=== PATIENT | female | born 1955 | race Two or more races ===

== ENCOUNTER 2025-06-18 08:11 | Inpatient (IN) | payer MEDICARE ==
[~2025-06-18] VITALS: Ht 172.7 cm; Wt 121.4 kg
[2025-06-18] VITALS (26 sets, daily range): BP systolic 102–146; BP diastolic 43–68; PULSE 50–73; RESP 12–23; TEMP 97.4–97.9; O2SAT 94–100
[2025-06-18] MEDS: SODIUM CHLORIDE 0.9% 1,000 ML IV ONE ×2 (08:56→08:57)
--- NOTE | 2025-06-18 09:01 | ED.PDOC ---
History of Present Illness HPI Comments 69-year-old female BIBA with prior medical history of pancreatic cancer, hypertension, high lipids and a chief complaint of generalized weakness for one month. EMS report on the family calling due from the patient having worsened symptoms of the generalized weakness. Patient reports on having had slipped f rom her bed with no pain this morning associated with no abdominal pain. When EMS arrived on scene the patient's blood pressure was 50 systolic. Patient notes on ambulating with the assistance. Denies any other symptoms at this time. Denies chills, fever, N/V/D, SOB, CP. No other associated symptoms, modifiers, recent injuries or sick contacts present at this time. Chief Complaint: Low Blood Pressure Time Seen by MD: 09:00 Reviewed Notes: Nurses Notes, Medications, Allergies Allergies: Coded Allergies: Penicillins (Verified Allergy, Unknown, 06/18/25) Sulfa Antibiotics (Verified Allergy, Unknown, 06/18/25) Information Source: Patient, Emergency Med Personnel Mode of Arrival: EMS Severity: Moderate Timing: Weeks Duration: Since onset Prehospital treatment: None Past Medical History PAST MEDICAL HISTORY: Cancer (Pancreatic), High Lipids, HTN Surgical History: Denies all surgeries WAREHOUSE SUPERVISOR 3RD SHIFT History: No Pertinent WAREHOUSE SUPERVISOR 3RD SHIFT History Family History Family History: Reviewed,noncontributory to illness, Unknown Social History Smoker: Non-Smoker Alcohol: Denies ETOH Use Drugs: Denies Drug Use Lives In: Home Constitutional: reports: weakness; denies: chills, diaphoresis, fatigue, fever, malaise, sweats, others EENTM: denies: blurred vision, double vision, ear bleeding, ear discharge, ear drainage, ear pain, ear ringing, eye pain, eye redness, hearing loss, mouth pain, mouth swelling, nasal discharge, nose bleeding, nose congestion, nose pain, photophobia, tearing, throat pain, throat swelling, voice changes, others Respiratory: denies: cough, hemoptysis, orthopnea, SOB at rest, shortness of breath, SOB with excertion, stridor, wheezing, others Cardiovascular: denies: chest pain, dizzy spells, diaphoresis, Dyspnea on exertion, edema, irregular heart beat, left arm pain, lightheadedness, palpitations, PND, syncope, others Gastrointestinal: reports: abdominal pain; denies: abdomen distended, blood streaked bowels, constipated, diarrhea, dysphagia, difficulty swallowing, hematemesis, melena, nausea, poor appetite, poor fluid intake, rectal bleeding, rectal pain, vomiting, others Genitourinary: denies: abnormal vagina bleeding, burning, dyspareunia, dysuria, flank pain, frequency, hematuria, incontinence, pain, , vagina discharge, urgency, others Neurological: denies: dizziness, fainting, headache, left sided numbness, left sided weakness, numbness, paresthesia, pre-existing deficit, right sided numbne ss, right sided weakness, seizure, speech problems, tingling, tremors, weakness, others Musculoskeletal: denies: back pain, gout, joint pain, joint swelling, muscle pain, muscle stiffness, neck pain, others Integumetry: denies: bruises, change in color, change in hair/nails, dryness, laceration, lesions, lumps, rash, wounds, others Allergic/Immunocompromised: denies: Difficulty Healing, Frequent Infections, Hives, Itching, others Hematologic/Lymphatic: denies: anemia, blood clots, easy bleeding, easy bruising, swollen glands, others Endocrine: denies: excessive hunger, excessive sweating, excessive thirst, excessive urination, flushing, intolerance to cold, intolerance to heat, unexplained weight gain, unexplained weight loss, others Psychiatric: denies: anxiety, bipolar disorder, depression, hopeless, panic disorder, schizophrenia, sleepless, suicidal, others All Other Systems: Reviewed and Negative Physical Exam General Appearance: Moderate Distress, Obese HEENT: Normal ENT Inspection, Pharynx Normal, TMs Normal Neck: Full Range of Motion, Non-Tender, Normal, Normal Inspection Respiratory: Chest Non-Tender, Lungs Clear, No Accessory Muscle Use, No Respiratory Distress, Normal Breath Sounds Cardiovascular: No Edema, No JVD, No Murmur, No Gallop, Normal Peripheral Pulses, Regular Rate/Rhythm Breast Exam: Deferred Gastrointestinal: No Organomegaly, Non Tender, No Pulsatile Mass, Normal Bowel Sounds, Soft Genitalia: Deferred Pelvic: Deferred Rectal: Deferred Extremities: No calf tenderness, Normal capillary refill, Non-tender, No pedal edema Musculoskeletal : Apperance: Normal Neurologic: Alert, sharepoint specialist II-XII nml as Tested, No Motor Deficits, Normal Affect, Normal Mood, No Sensory Deficits Cerebellar Function: NOT DONE Reflexes: NOT DONE Skin: Dry, Normal Color, Warm Peripheral Pulses: 3+ Radial (R), 3+ Radial (L) Lymphatic: No Adenopathy Was a procedure done? Was a procedure done?: No Differential Dx Considerations may include: Atrial fibrillation Electrolyte imbalance X-Ray, Labs, Meds, VS Vital Signs Date Time Temp Pulse Resp B/P (MAP) Pulse Ox O2 Delivery O2 Flow Rate FiO2 06/18/25 11:25 84/44 06/18/25 09:40 71 06/18/25 09:12 98.0 78 18 49/36 98 98.0 06/18/25 08:37 77 Lab Test 06/18/25 12:35 06/18/25 10:35 06/18/25 08:35 Range/Units Lactic Acid Level 1.1 1.9 3.2 *H 0.4-2.0 mmol/L White Blood Count 60.8 *H 4.4-10.8 10^3/uL Red Blood Count 1.90 L 4.0-5.20 10^6/uL Hemoglobin 5.6 *L 12.2-16.2 g/dL Hematocrit 17.8 L 36.0-46.0 % Mean Corpuscular Volume 93.8 80.0-100.0 fL Mean Corpuscular Hemoglobin 29.3 28.0-32.0 pg Mean Corpuscular Hemoglobin Concent 31.3 L 32.0-36.0 g/dL Red Cell Distribution Width 23.2 H 11.8-14.3 % Platelet Count 399 140-450 10^3/uL Mean Platelet Volume 8.9 6.9-10.8 fL Neutrophils (%) (Auto) 37.0-80.0 % Lymphocytes (%) (Auto) 10.0-50.0 % Monocytes (%) (Auto) 0.0-12.0 % Basophils (%) (Auto) 0.0-2.0 % Neutrophils # (Auto) 1.6-8.6 10 ^3/uL Lymphocytes # (Auto) 0.4-5.4 10 ^3/uL Monocytes # (Auto) 0-1.3 10 ^3/uL Differential Total Cells Counted 100.0 100 Neutrophils % (Manual) 80 37.0-80.0 Band Neutrophils % (Manual) 15 Lymphocytes % (Manual) 3 L 10.0-50.0 Monocytes % (Manual) 1 0-12 Eosinophils % (Manual) 0 0-7 Basophils % (Manual) 0 0.0-2.0 Metamyelocytes % (manual) 0 Myelocytes % (Manual) 1 Promyelocytes % (Manual) 0 Blast Cells % (Manual) 0 Reactive Lymphocytes 0 Platelet Estimate Adequate Clumped Platelets Few Anisocytosis (manual) Slight Prothrombin Time 14.1 H 9.3-11.8 sec Prothrombin Time INR 1.37 H 0.9-1.15 Activated Partial Thromboplast Time 34.0 24.5-34.5 SEC Sodium Level 136 136-145 mmol/L Potassium Level 4.7 3.5-5.1 mmol/L Chloride Level 103 98-107 mmol/L Carbon Dioxide Level 20 20-31 mmol/L Anion Gap 13 5-15 Blood Urea Nitrogen 20 9-23 mg/dL Creatinine 2.81 H 0.550-1.02 mg/dL Glomerular Filtration Rate Calc 18 >90 mL/min BUN/Creatinine Ratio 7.1 L 10.0-20.0 Serum Glucose 125 H 74-106 mg/dL Calcium Level 8.2 L 8.7-10.4 mg/dL Total Bilirubin 1.0 0.2-1.0 mg/dL Aspartate Amino Transferase (AST) 96 H 13-40 U/L Alanine Aminotransferase (ALT) 42 H 7-40 U/L Alkaline Phosphatase 391 H 46-116 U/L Total Protein 6.4 5.7-8.2 g/dL Albumin 3.2 3.2-4.8 g/dL Current Medications Medications (Trade) Dose Ordered Sig/Anni Route Start Time Stop Time Status Last Admin Sodium Chloride 1,000 ml @ 1,000 mls/hr Q1H ONCE IV 06/18/25 08:30 06/18/25 09:29 DC 06/18/25 08:56 Sodium Chloride 1,000 ml @ 150 mls/hr Q6H40M ONCE IV 06/18/25 08:30 06/18/25 15:09 06/18/25 08:57 Metronidazole 100 ml @ 100 mls/hr ONCE ONCE IV 06/18/25 09:45 06/18/25 10:44 DC 06/18/25 10:41 Norepinephrine Bitartrate 250 ml @ 3.75 mls/hr Q24H IV 06/18/25 11:00 06/18/25 11:25 Patient alert. Came in because of generalized weakness. Liver profile elevated. Lactic acid elevated. WBC elevated. She does have a history of pancreatic cancer. Establish intravenous access. Was given fluids. Was given cefepime. Was given Flagyl. Explained to the patient. Continue to monitor. Have to be careful in giving fluids. Possible fluid overload. Start Levophed. Time of 1ST Reevaluation: 09:30 Reevaluation 1ST: Unchanged Patient Education/Counseling: Diagnosis, Treatment, Prognosis Family Education/Counseling: No Family Present SEPSIS Sepsis Screen Physician Orders Urinalysis (06/18/25 08:21) Chest Portable (06/18/25 08:21) Accucheck (06/18/25 08:21) Blood Culture (06/18/25 08:21) Cefepime 1gm/50ml (Maxipime 1gm/50ml) (06/18/25 14:00) Notify Md If Map <65 Or Bp<90 (06/18/25 08:21) If Map<65 Start Vasopressor (06/18/25 08:21) Sepsis Reassesment After Fluid (06/18/25 09:21) Sodium Chloride 0.9% (06/18/25 08:30) Norepinephrine 8 Mg/250ml Kit (Levophed) (06/18/25 11:00) Type And Screen (06/18/25 12:26) Metronidazole 500mg/100ml (Flagyl 500mg/ (06/18/25 14:00) Cefepime 1gm/50ml (Maxipime 1gm/50ml) (06/19/25 10:00) Urine Bacterial Culture (06/18/25 12:38) Transfuse Blood Product (06/18/25 12:38) Packedcell-Noactive Bleeding (06/18/25 12:38) Complete Blood Count (06/18/25 19:00) Reticulocyte Count (06/18/25 12:38) Lactate Dehydrogenase (06/18/25 12:38) Vital Signs Date Time Temp Pulse Resp B/P (MAP) Pulse Ox O2 Delivery O2 Flow Rate FiO2 06/18/25 11:25 84/44 06/18/25 09:40 71 06/18/25 09:12 98.0 78 18 49/36 98 98.0 06/18/25 08:37 77 Laboratory Tests Test 06/18/25 08:35 06/18/25 10:35 06/18/25 12:35 Lactic Acid Level 3.2 mmol/L (0.4-2.0) *H 1.9 mmol/L (0.4-2.0) 1.1 mmol/L (0.4-2.0) White Blood Count 60.8 10^3/uL (4.4-10.8) *H Medications Medications Dose Ordered Sig/Anni Route Start Time Stop Time Status Last Admin Dose Admin Metronidazole 100 ml @ 100 mls/hr ONCE ONCE IV 06/18/25 09:45 06/18/25 10:44 DC 06/18/25 10:41 Norepinephrine Bitartrate 250 ml @ 3.75 mls/hr Q24H IV 06/18/25 11:00 06/18/25 11:25 Sodium Chloride 1,000 ml @ 150 mls/hr Q6H40M ONCE IV 06/18/25 08:30 06/18/25 15:09 06/18/25 08:57 Sodium Chloride 1,000 ml @ 1,000 mls/hr Q1H ONCE IV 06/18/25 08:30 06/18/25 09:29 DC 06/18/25 08:56 Departure 1 Departure Time of Disposition: 09:41 Impression: Primary Impression: Sepsis, unspecified organism Qualified Codes: A41.9 - Sepsis, unspecified organism Disposition: 09 ADMITTED INPATIENT Admit to: Med Surg Condition: Guarded Critical Care Note Critical Care Time?: Yes (90 min-critical care time only) Stability Stability form required: No Heart Score Heart Score: Heart Score Response (Comments) Value History Slightly Suspicious 0 EKG Normal 0 Age >65 2 Risk Factors >3 or Hx ASHD 2 Troponin Normal limit 0 Total 4 I personally scribed for KIRTI FUENTES MD ([email or web address]) on 06/18/25 at 09:01. Electronically submitted by Miguelangel Ramirez ([email or web address]). KIRTI FUENTES MD Jun 18, 2025 09:01
[2025-06-18 09:06] LABS: Hematocrit 17.8 % (36.0-46.0); Mean Corpuscular Hemoglobin 29.3 pg (28.0-32.0); Mean Corpuscular Volume 93.8 fL (80.0-100.0)
[2025-06-18 09:11] LABS: Hemoglobin 5.6 g/dL (12.2-16.2); INR 1.37 (0.9-1.15); Partial Thromboplastin Time 34.0 SEC (24.5-34.5); Prothrombin Time 14.1 sec (9.3-11.8)
[2025-06-18 09:15] LABS: Anion Gap 13 (5-15); BUN/Creatinine Ratio 7.1 (10.0-20.0); Bilirubin, Total 1.0 mg/dL (0.2-1.0); Blood Urea Nitrogen 20 mg/dL (9-23); Carbon Dioxide 20 mmol/L (20-31); Chloride 103 mmol/L (98-107); Potassium 4.7 mmol/L (3.5-5.1); Total Protein 6.4 g/dL (5.7-8.2)
--- NOTE | 2025-06-18 09:16 | DVH ---
CHEST RADIOGRAPH Indication: sob Technique: Single frontal view of the chest was obtained COMPARISON: None FINDINGS: Right-sided port-A-Cath with tip near the cavoatrial junction. Lungs and pleural spaces are clear. Cardiac silhouette and valentin are within normal limits. Bones and s oft tissues demonstrate no significant abnormality. IMPRESSION: No acute disease.
[2025-06-18 09:32] LABS: Alanine Aminotransferase 42 U/L (7-40); Albumin 3.2 g/dL (3.2-4.8); Alkaline Phosphatase 391 U/L (46-116); Calcium 8.2 mg/dL (8.7-10.4); Glucose 125 mg/dL (74-106); Sodium 136 mmol/L (136-145)
[2025-06-18 09:35] LABS: Lactic Acid w/Reflex 3.2 mmol/L (0.4-2.0)
--- NOTE | 2025-06-18 09:52 | ECG ---
[facility] Test Date: 2025-06-18 Test Time: 09:40:52 Pat Name: GAIL ABAD Department: [facility] ED Patient ID: [id number] Room: 0235T Gender: F Quality Assistant: [email or web address] : 1955 Requested By: KIRTI FUENTES Order Number: [id number] Reading MD: Jesse Leonard Measurements Intervals [place] Rate: 71 P: 46 LA: 173 QRS: 31 QRSD: 93 T: 38 QT: 478 QTc: 520 Interpretive Statements Sinus rhythm Low voltage, precordial leads Prolonged QT interval Electronically Signed On 06-24-2025 13:23:35 PST by Jesse Leonard Please click the below link to view image of tracing.
--- NOTE | 2025-06-18 09:52 | ECG ---
[facility] Test Date: 2025-06-18 Test Time: 08:37:32 Pat Name: GAIL ABAD Department: [facility] ED Patient ID: [id number] Room: 0235T Gender: F Manufacturing Engineer Assembly: ISSA : 1955 Requested By: KIRTI FUENTES Order Number: [id number] Reading MD: Jesse Leonard Measurements Intervals [place] Rate: 77 P: 41 [place]: 166 QRS: 18 QRSD: 92 T: 44 QT: 439 QTc: 497 Interpretive Statements Sinus rhythm Low voltage, precordial leads Baseline artifact in leads II and III Borderline prolonged QT interval Electronically Signed On 06-24-2025 13:19:54 PST by Jesse Leonard Please click the below link to view image of tracing.
[2025-06-18 10:34] LABS: Anisocytosis Slight; Total Cells Counted 100.0 (100)
[2025-06-18] MEDS: NOREPINEPHRINE 8 MG/250ML KIT 250 ML IV SCH (11:25)
[2025-06-18] MEDS ORDERED: ACETAMINOPHEN 325 MG TAB PO PRN (13:00)
[2025-06-18] MEDS ORDERED: NITROGLYCERIN 0.4 MG SL TAB SL PRN (13:00)
[2025-06-18] MEDS ORDERED: ONDANSETRON HCL 4 MG/2 ML VIAL IV PRN (13:00)
[2025-06-18] MEDS ORDERED: DEXTROSE (50%) 50ML SYRG IV PRN (13:15)
--- NOTE | 2025-06-18 13:15 | DVHHP2 ---
History of Present Illness Reason for Visit: Weakness History of Present Illness Hanny Pan is a 69-year-old female with past medical history of pancreatic and liver cancer Mets to the lung on chemo, bile duct cancer status post Whipple, hyperlipidemia, hypertension, , and ERCP who presents to the ED with weakness for over a month. Patient reports that she was trying to get up to go to the bathroom and fell however did not hit her head or lose consciousness. A family member was able to catch her head. Patient's daughter reports that she uses a front wheel walker or a cane. Patient's daughter catarino at the bedside and reports that her mom is from [place], initially had her Port-A-Cath in the right chest placed in [place] and had established care was on chemo in [place]. Reports that she recently moved here a month and a half ago, now has seen an oncologist at [facility] in [place] and plans are to have chemo start mid June. Reports that they want to delayed due to her weakness. Daughter reports that the last time she had chemo was on the . Patient denies any active bleeding, hematemesis, or hematochezia. Patient also reports that she has been compliant with her medications. Patient denies any recent recent sick contacts, recent ingestion of spoiled food, recent trauma or injury, chest pain, shortness of breath, fever, chills, lightheadedness, dizziness, abdominal pain, nausea, vomiting, diarrhea, or urinary symptoms. Patient reports that she does not want to be intubated but does want other measures for resuscitation, includes medications, vasopressors, CPR, and BiPAP. Cardiovascular: HTN, hyperipidemia Past Medical History Pancreatic cancer Liver cancer Bile duct cancer Mets to the lung Past Surgical History: , Other (Whipple and ERCP) Family History: Other (Mom with breast cancer. Dad with DC, CABG, and diabetes. Grandma with breast cancer.) Smoke: No ALCOHOL: none Drugs: None Lives: with Family Domestic Violence: Neg Review of Systems Constitutional: Yes: Weakness Allergies: Coded Allergies: Penicillins (Verified Allergy, Unknown, 06/18/25) Sulfa Antibiotics (Verified Allergy, Unknown, 06/18/25) Medications Current Medications Medications Dose Ordered Sig/Anni Route Start Time Stop Time Status Last Admin Dose Admin Cefepime HCl 50 ml @ 12.5 mls/hr Q24H IV 06/18/25 14:00 Norepinephrine Bitartrate 250 ml @ 3.75 mls/hr Q24H IV 06/18/25 11:00 06/18/25 11:25 3.75 MLS/HR Exam Vital Signs Vital Signs Date Time Temp Pulse Resp B/P (MAP) Pulse Ox O2 Delivery O2 Flow Rate FiO2 06/18/25 11:25 84/44 06/18/25 09:40 71 06/18/25 09:12 98.0 18 98 98.0 General Appearance: Alert, Oriented X3, Cooperative, No acute distress HEENT: Atraumatic, PERRLA, EOMI, Mucous membr. moist/pink Respiratory: Clear to auscultation Cardiovascular: Regular rate, Normal S1, Normal S2, No murmurs Abdominal: Normal bowel sounds, Soft Neuro: Normal speech, Normal tone, Sensation intact Psych/Mental Status: Mental status NL, Mood NL Labs/Xrays Labs Test 06/18/25 10:35 06/18/25 08:35 Range/Units Lactic Acid Level 1.9 0.4-2.0 mmol/L White Blood Count 60.8 *H 4.4-10.8 10^3/uL Red Blood Count 1.90 L 4.0-5.20 10^6/uL Hemoglobin 5.6 *L 12.2-16.2 g/dL Hematocrit 17.8 L 36.0-46.0 % Mean Corpuscular Volume 93.8 80.0-100.0 fL Mean Corpuscular Hemoglobin 29.3 28.0-32.0 pg Mean Corpuscular Hemoglobin Concent 31.3 L 32.0-36.0 g/dL Red Cell Distribution Width 23.2 H 11.8-14.3 % Platelet Count 399 140-450 10^3/uL Mean Platelet Volume 8.9 6.9-10.8 fL Neutrophils (%) (Auto) 37.0-80.0 % Lymphocytes (%) (Auto) 10.0-50.0 % Monocytes (%) (Auto) 0.0-12.0 % Basophils (%) (Auto) 0.0-2.0 % Neutrophils # (Auto) 1.6-8.6 10 ^3/uL Lymphocytes # (Auto) 0.4-5.4 10 ^3/uL Monocytes # (Auto) 0-1.3 10 ^3/uL Differential Total Cells Counted 100.0 100 Neutrophils % (Manual) 80 37.0-80.0 Band Neutrophils % (Manual) 15 Lymphocytes % (Manual) 3 L 10.0-50.0 Monocytes % (Manual) 1 0-12 Eosinophils % (Manual) 0 0-7 Basophils % (Manual) 0 0.0-2.0 Metamyelocytes % (manual) 0 Myelocytes % (Manual) 1 Promyelocytes % (Manual) 0 Blast Cells % (Manual) 0 Reactive Lymphocytes 0 Platelet Estimate Adequate Clumped Platelets Few Anisocytosis (manual) Slight Prothrombin Time 14.1 H 9.3-11.8 sec Prothrombin Time INR 1.37 H 0.9-1.15 Activated Partial Thromboplast Time 34.0 24.5-34.5 SEC Sodium Level 136 136-145 mmol/L Potassium Level 4.7 3.5-5.1 mmol/L Chloride Level 103 98-107 mmol/L Carbon Dioxide Level 20 20-31 mmol/L Anion Gap 13 5-15 Blood Urea Nitrogen 20 9-23 mg/dL Creatinine 2.81 H 0.550-1.02 mg/dL Glomerular Filtration Rate Calc 18 >90 mL/min BUN/Creatinine Ratio 7.1 L 10.0-20.0 Serum Glucose 125 H 74-106 mg/dL Calcium Level 8.2 L 8.7-10.4 mg/dL Total Bilirubin 1.0 0.2-1.0 mg/dL Aspartate Amino Transferase (AST) 96 H 13-40 U/L Alanine Aminotransferase (ALT) 42 H 7-40 U/L Alkaline Phosphatase 391 H 46-116 U/L Total Protein 6.4 5.7-8.2 g/dL Albumin 3.2 3.2-4.8 g/dL CHEST RADIOGRAPH Indication: sob Technique: Single frontal view of the chest was obtained COMPARISON: None FINDINGS: Right-sided port-A-Cath with tip near the cavoatrial junction. Lungs and pleural spaces are clear. Cardiac silhouette and valentin are within normal limits. Bones and soft tissues demonstrate no significant abnormality. IMPRESSION: No acute disease. SEPSIS Sepsis Screen Date sepsis recognized/suspect: Jun 18, 2025 Time Sepsis recognized/suspect: 0811 Recent Procedure: No On Antibiotic Therapy: No Respiratory Rate >20: No Heart Rate >90: No Temp<36 C (96.8 F) or >38.3 C: No SBP <90 or MAP <65 mmHG: Yes New Acute Mental Status Change: No Is the patient on CPAP, BIPAP,: No Physician Orders Urinalysis (06/18/25 08:21) Chest Portable (06/18/25 08:21) Accucheck (06/18/25 08:21) Blood Culture (06/18/25 08:21) Lactic Acid W/ Reflex Order (06/18/25 12:00) Cefepime 1gm/50ml (Maxipime 1gm/50ml) (06/18/25 14:00) Notify Md If Map <65 Or Bp<90 (06/18/25 08:21) If Map<65 Start Vasopressor (06/18/25 08:21) Sepsis Reassesment After Fluid (06/18/25 09:21) Sodium Chloride 0.9% (06/18/25 08:30) Norepinephrine 8 Mg/250ml Kit (Levophed) (06/18/25 11:00) Type And Screen (06/18/25 12:26) Vital Signs Date Time Temp Pulse Resp B/P (MAP) Pulse Ox O2 Delivery O2 Flow Rate FiO2 06/18/25 11:25 84/44 06/18/25 09:40 71 06/18/25 09:12 98.0 78 18 49/36 98 98.0 06/18/25 08:37 77 Laboratory Tests Test 06/18/25 08:35 06/18/25 10:35 Lactic Acid Level 3.2 mmol/L (0.4-2.0) *H 1.9 mmol/L (0.4-2.0) White Blood Count 60.8 10^3/uL (4.4-10.8) *H Medications Medications Dose Ordered Sig/Anni Route Start Time Stop Time Status Last Admin Dose Admin Metronidazole 100 ml @ 100 mls/hr ONCE ONCE IV 06/18/25 09:45 06/18/25 10:44 DC 06/18/25 10:41 100 MLS/HR Norepinephrine Bitartrate 250 ml @ 3.75 mls/hr Q24H IV 06/18/25 11:00 06/18/25 11:25 3.75 MLS/HR Sodium Chloride 1,000 ml @ 150 mls/hr Q6H40M ONCE IV 06/18/25 08:30 06/18/25 15:09 06/18/25 08:57 150 MLS/HR Sodium Chloride 1,000 ml @ 1,000 mls/hr Q1H ONCE IV 06/18/25 08:30 06/18/25 09:29 DC 06/18/25 08:56 1,000 MLS/HR Assessment/Plan Assessment/Plan Assessment/plan Admit to ICU Generalized weakness Status post fall Severe anemia Leukocytosis Lactic acidosis likely due to sepsis Hypovolemic versus septic shock -admit to ICU -vasopressors to keep maps greater than 65 -lactic -IV antibiotics-Flagyl + cefepime -EKG -manual differential -NS given in ED -type and screen -transfuse PRBCs for hemoglobin less than 7.0 -UA -urine culture -blood cultures History of pancreatic and liver cancer Mets to the lung-on chemo, per daughter reports History of History of Whipple History of ERCP History of diabetes History of hypertension -follow up with outpatient PCP and Oncologist -Hemoglobin A1c -ISS and Accu-Cheks Transaminitis -likely due to liver cancer -monitor KYLER -Nephro consult -IV fluids Obesity -counseled patient on lifestyle modifications, diet, and exercise Modified code DNI Diet Home medications need to be recon by nurse, patient's daughter catarino reports th at she has a list DVT and PUD prophylaxis Discussed plan of care with patient, patient's daughter, and nurse [id number] Advanced care planning discussed [id number] Preventive counseling healthy eating habits, physical activity, and regular checkups Plan discussed with: Patient, Daughter My Orders Orders - GEO NELSON Procedure Category Date Status Time Type And Screen BBK 06/18/25 Logged 12:26 Date of Service: Jun 18, 2025 Billing Provider: GEO NELSON Common Visit Codes: 01614-LFQHMVI INP/OBS CARE (HIGH) Secondary Visit Codes: 68366-PMPIGVOQHS COUNSELING IND, [id number]-[id number] CARE PLAN 30 MINUTES GEO NELSON Jun 18, 2025 13:15
[2025-06-18] MEDS: SODIUM CHLORIDE 0.9% 1,000 ML IV SCH (14:17)
[2025-06-18] MEDS: CEFEPIME 1GM/50ML 50 ML IV SCH (14:23)
[2025-06-18 15:58] LABS: Urine Protein, UAD 1+ (Negative)
[2025-06-18] MEDS: ACCU-CHEK COMFORT CURVE STRIP VI SCH (17:00)
[2025-06-18] MEDS: InsuLIN REG 1unit/0.01ml Soln (100units/ml) SC SCH (17:00)
[2025-06-18] MEDS: HYDROcodone-ACET 5/325MG TAB PO PRN (23:03)
[2025-06-19] VITALS (53 sets, daily range): BP systolic 92–150; BP diastolic 37–102; PULSE 48–124; RESP 12–22; TEMP 97.6–98.2; O2SAT 95–100
[2025-06-19 02:21] LABS: Hematocrit 33.1 % (36.0-46.0); Hemoglobin 10.5 g/dL (12.2-16.2); Mean Corpuscular Hemoglobin 29.2 pg (28.0-32.0); Mean Corpuscular Volume 91.8 fL (80.0-100.0)
[2025-06-19 04:02] LABS: Anisocytosis Slight; Total Cells Counted 100.0 (100)
[2025-06-19] MEDS: CEFEPIME 1GM/50ML 50 ML IV SCH (09:44)
[2025-06-19] MEDS: MEROPENEM 500MG IVPB 50 ML IV SCH (11:00)
[2025-06-19] MEDS: SODIUM CHLORIDE 0.9% 1,000 ML IV SCH ×2 (11:00→16:14)
[2025-06-19] MEDS ORDERED: DOCUSATE SOD 100 MG CAP PO PRN (11:00)
[2025-06-19] MEDS ORDERED: PANT1INJ3 PO (11:04)
[2025-06-19] MEDS ORDERED: LOSA-534 PO (11:05)
[2025-06-19] MEDS ORDERED: LOSA-533 PO (11:05)
[2025-06-19] MEDS ORDERED: ROPI0.5T26 PO (11:09)
[2025-06-19] MEDS ORDERED: CHOL200031 PO (11:09)
[2025-06-19] MEDS ORDERED: MAGN250T3 PO (11:09)
[2025-06-19] MEDS ORDERED: GABA300T4 PO (11:15)
[2025-06-19] MEDS ORDERED: ATOR40TA52 PO (11:15)
[2025-06-19] MEDS ORDERED: PROP60CA34 PO (11:15)
[2025-06-19 13:07] LABS: Hematocrit 30.3 % (36.0-46.0); Hemoglobin 9.4 g/dL (12.2-16.2); Mean Corpuscular Hemoglobin 29.1 pg (28.0-32.0); Mean Corpuscular Volume 94.2 fL (80.0-100.0); Nucleated Red Blood Cells % 0.0 %
--- NOTE | 2025-06-19 13:16 | DVH ---
Indication: sepsis, pancreatic ca Technique: CT axial images of the abdomen and pelvis are obtained without contrast. Coronal and sagit sarah reformats were obtained. Radiation Dose Information: CTDI volume is 23.02 mGy. Dose-length product is 1324.78 mGy*cm Comparison: None FINDINGS: There is limited interpretation of the abdomen and pelvis without administration of intravenous contr ast. Lung bases demonstrate atelectasis. Tiny bilateral pleural effusions. Adrenal glands unremarkable. Spleen measures 13 cm AP. Postsurgical changes in the pancreatic head/ uncinate region with possible partial pancreatectomy. Right hepatic lobe hypodense lesion measuring 6.2 cm., 3.5 cm, 2.1 cm. Pneumobilia in the left hepat ic lobe. CBD stent. Right kidney demonstrates no significant hydronephrosis. The left kidney demonstrates [id number] left hydroureteronephrosis. No obstructing calculus maria l ntified. Postsurgical changes stomach. Stomach is nondistended. Gastrojejunostomy. Small bowel loops are nor mal in caliber. Moderate volume stool throughout the colon. Normal appendix. Abdominal aortic atherosclerotic disease. Bladder decompressed by Bennett catheter. Calcified uterine leiomyomas measuring up to 5.8 cm. No pelvic free fluid. No inguinal lymphadenopathy. Moderate thoracolumbar degenerative disc disease. IMPRESSION: Limited evaluation without contrast. Right hepatic lobe hypodense lesions measuring 6.2, 3.5 and 2.1 cm are possibly communicating with on e another. Differential considerations would include intrahepatic abscesses, metastases/necrotic soco plasm. Recommend multiphasic MRI abdomen with and without contrast. This may represent the source of the patient's sepsis. Findings suggestive of procedure. [id number] left hydroureteronephrosis. No obstructing calculus identified. Recommend urology co nsultation for further evaluation. Calcified uterine leiomyomas. Tiny bilateral pleural effusions. Other findings as described.
[2025-06-19 13:25] LABS: Alanine Aminotransferase 35 U/L (7-40); Anion Gap 10 (5-15); BUN/Creatinine Ratio 12.8 (10.0-20.0); Chloride 105 mmol/L (98-107); Potassium 4.1 mmol/L (3.5-5.1); Total Protein 5.9 g/dL (5.7-8.2)
[2025-06-19 13:26] LABS: Albumin 2.9 g/dL (3.2-4.8); Alkaline Phosphatase 310 U/L (46-116); Bilirubin, Total 0.4 mg/dL (0.2-1.0); Blood Urea Nitrogen 30 mg/dL (9-23); Calcium 8.0 mg/dL (8.7-10.4); Carbon Dioxide 20 mmol/L (20-31); Glucose 160 mg/dL (74-106); Sodium 135 mmol/L (136-145)
[2025-06-19] MEDS ORDERED: GABAPENTIN 300 MG CAP PO SCH (14:00)
[2025-06-19] MEDS ORDERED: SENNA 8.6 MG TAB PO PRN (15:00)
[2025-06-19] MEDS: PATIENTS OWN MEDICATION (Gabapentin (Once-Daily) (Gabapentin) 300 MG) PO SCH (16:14)
[2025-06-19] MEDS: diphenhydrAMINE HCL 50 MG/1 ML VL IV ONE (16:41)
--- NOTE | 2025-06-19 20:11 | DVH ---
INDICATION: look for ureteral jetting TECHNIQUE: Multiple real-time grayscale transabdominal sonographic images along with color and duplex Doppler of the uterus and ovaries were obtained. COMPARISON: None FINDINGS: Bennett catheter poorly visualized. Bennett catheter visualized on CT abdomen and pelvis done same day. Bilateral ureteral jets not visualized. IMPRESSION: 1. Bennett catheter poorly visualized 2. Ureteral jets not visualized.
[2025-06-19] MEDS: CLINDAMYCIN 300MG IV 50 ML IV SCH (21:17)
[2025-06-19] MEDS: APIXABAN 5 MG TAB PO SCH (21:18)
[2025-06-19] MEDS: GABAPENTIN 300 MG CAP PO SCH (21:18)
[2025-06-20] VITALS (8 sets, daily range): BP systolic 90–139; BP diastolic 54–81; PULSE 73–92; RESP 18–20; TEMP 97.1–98.8; O2SAT 96–99
[2025-06-20 04:32] LABS: Hematocrit 30.4 % (36.0-46.0); Hemoglobin 9.9 g/dL (12.2-16.2); Mean Corpuscular Hemoglobin 29.0 pg (28.0-32.0); Mean Corpuscular Volume 88.7 fL (80.0-100.0); Nucleated Red Blood Cells % 0.0 %
[2025-06-20 05:00] LABS: Alanine Aminotransferase 30 U/L (7-40); Anion Gap 9 (5-15); BUN/Creatinine Ratio 17.0 (10.0-20.0); Carbon Dioxide 21 mmol/L (20-31); Chloride 106 mmol/L (98-107); Potassium 4.2 mmol/L (3.5-5.1); Total Protein 5.9 g/dL (5.7-8.2)
[2025-06-20 05:01] LABS: Bilirubin, Total 0.5 mg/dL (0.2-1.0)
[2025-06-20 05:28] LABS: Albumin 2.9 g/dL (3.2-4.8); Alkaline Phosphatase 297 U/L (46-116); Blood Urea Nitrogen 29 mg/dL (9-23); Calcium 8.1 mg/dL (8.7-10.4); Glucose 120 mg/dL (74-106); Sodium 136 mmol/L (136-145)
--- NOTE | 2025-06-20 11:11 | DVHPN2 ---
Subjective Patient continues to report having generalized weakness Reviewed: Care Plan, H&P, Labs, Medications Changes from previous H/P or p: No Changes General: Per HPI Objective Vitals Vital Signs Date Time Temp Pulse Resp B/P (MAP) Pulse Ox O2 Delivery O2 Flow Rate FiO2 06/19/25 08:00 62 22 98 Room Air* 0 21 06/19/25 07:15 138/67 (90) 06/19/25 00:15 97.8 97.8 Intake/Output Intake and Output 06/19/25 07:00 Intake Total 2763.75 ml Output Total 100 ml Balance 2663.75 ml IV Total 2463.75 ml Other 300 ml Output Urine Total 100 ml # Bowel Movements 1 General Appearance: Alert, Oriented X3, Cooperative, No acute distress HEENT: Atraumatic, PERRLA Lungs: Clear to auscultation, Normal air movement Cardiovascular: Normal S1, Normal S2 Abdomen: Normal bowel sounds, Soft, No tenderness, No hepatospenomegaly Genitourinary: No Apparent Abnormalities Musculoskeletal: Normal sensory function, Normal motor function Skin: Dry, Intact Psych/Mental Status: Mental status NL, Mood NL Medications Current Medications Medications Dose Ordered Sig/Anni Route Start Time Stop Time Status Last Admin Dose Admin Norepinephrine Bitartrate 250 ml @ 3.75 mls/hr Q24H IV 06/18/25 11:00 06/18/25 11:25 3.75 MLS/HR Metronidazole 100 ml @ 100 mls/hr Q8HR IV 06/18/25 14:00 06/19/25 06:33 100 MLS/HR Nitroglycerin 0.4 mg Q5MINP PRN SL 06/18/25 13:00 Morphine Sulfate 2 mg Q30M PRN IV 06/18/25 13:00 Diagnostic Test (Pha) 1 strip ACHS 06/18/25 17:00 06/19/25 11:30 1 STRIP Insulin Human Regular ACHS SC 06/18/25 17:00 06/19/25 06:35 2 UNITS Dextrose 50 ml UD PRN IV 06/18/25 13:15 Meropenem 50 ml @ 17 mls/hr Q12HR IV 06/19/25 11:00 06/19/25 11:00 17 MLS/HR Oxycodone HCl 5 mg Q6HP PRN PO 06/19/25 11:00 06/19/25 12:35 5 MG Hydromorphone HCl 0.25 mg Q4HPRN PRN IV 06/19/25 11:00 Acetaminophen 500 mg Q8HP PRN PO 06/19/25 11:00 Ondansetron HCl 4 mg Q6HP PRN IV 06/19/25 11:00 Docusate Sodium 100 mg BID PRN PO 06/19/25 11:00 Sodium Chloride 1,000 ml @ 75 mls/hr [id number] IV 06/19/25 11:00 06/19/25 11:00 75 MLS/HR Apixaban 5 mg BID PO 06/19/25 22:00 UNV Patient Own Medication 300 mg TID PO 06/19/25 14:00 UNV Gabapentin 300 mg TID PO 06/19/25 14:00 UNV Pantoprazole Sodium 40 mg DAILY IV 06/20/25 10:00 UNV Laboratory Results Laboratory Tests 06/18/25 08:35 06/19/25 02:00 Urinalysis Test 06/18/25 15:43 Urine Color Yellow (Yellow) Urine Clarity Turbid (Clear) H Urine pH 5.5 (5.0-9.0) Urine Specific [place] 1.015 (1.001-1.035) Urine Protein 1+ (Negative) H Urine Ketones Negative (Negative) Urine Blood Negative /uL (Negative) Urine Nitrite Negative (Negative) Urine Bilirubin Negative (Negative) Urine Urobilinogen 2 mg/dL (Negative) H Urine Leukocyte Esterase Negative /uL (Negative) Urine RBC 5 /hpf (0 - 4) Urine Microscopic WBC 17 /HPF (0-5) H Urine Squamous Epithelial Cells Few /hpf (<5) Urine Bacteria None seen /hpf (None Seen) Urine Hyaline Casts Mod /lpf (0 - 2) Urine Mucus Few (None Seen) Urine Glucose Normal mg/dL (Normal) Microbiology Microbiology Date/Time Source Procedure Growth Status 06/18/25 15:43 Voided Urine Urine Culture - Preliminary Resulted 06/18/25 08:35 Blood Blood Culture - Preliminary NO GROWTH AFTER 24 HOURS OF INCUBATION. Resulted Labs and/or images reviewed: Labs reviewed by me, Image(s) reviewed by me Assessment/Plan Assessment/Plan Impression: -sepsis -severe anemia, rule out GI bleed -pancreatic cancer, status post Whipple procedure from one year ago -septic shock -acute kidney injury, vasomotor nephropathy -obesity -primary hypertension -history of DVT -peripheral neuropathy Plan: -broaden antibiotic therapy to include Meropenem with Flagyl -CT scan of the abdomen and pelvis -IV hydration -PPI -restart Eliquis -maya cultures -downgrade to telemetry status -code status: DNI Total time spent with patient discussing and formulating plan of care: 35 minutes. Total time spent with patient and family regarding advance care plannin minutes. This medical document was created using an electronic medical record system with [employer] dictation system. Although this document has been carefully reviewed, there may still be some phonetic and typographical errors. These areas are purely typographical due to imperfections of the software programs, and do not reflect any compromise in the patient's medical care. Plan discussed with: Patient, Daughter, Other (RN) My Orders Orders - ALTHEA KINGSTON HAND GRINDER Procedure Category Date Status Time Meropenem 500mg Ivpb PHA 06/19/25 In Process (Merrem 500mg/50ml 11:00 Ct Ab Pel Wo Con-No CT 06/19/25 Taken Oral Or Iv 10:49 Carbohydrate Antigen LAB 06/19/25 Logged 19-9 Complete Blood Count LAB 06/19/25 Logged 10:49 Comprehensive LAB 06/19/25 Logged Metabolic Panel 10:49 Comprehensive LAB 06/20/25 Verified Metabolic Panel 05:00 Comprehensive LAB 06/21/25 Verified Metabolic Panel 05:00 Comprehensive LAB 06/22/25 Verified Metabolic Panel 05:00 Oxycodone Immediate PHA 06/19/25 In Process Rel Tablet 11:00 Hydromorphone PHA 06/19/25 In Process Injection (Dilaudid 11:00 Acetaminophen Tab Or PHA 06/19/25 In Process Cap (Tylenol Tablet 11:00 Ondansetron Hcl PHA 06/19/25 In Process (Zofran) 11:00 Docusate Sodium PHA 06/19/25 In Process Capsule (Colace 11:00 B-Type Natriuretic LAB 06/19/25 Logged Peptide 10:49 Sodium Chloride 0.9% PHA 06/19/25 In Process 11:00 Apixaban (Eliquis) PHA 06/19/25 Transmitted 22:00 (Nf) Gabapentin PHA 06/19/25 Transmitted (Once-Daily) 14:00 Gabapentin Capsule PHA 06/19/25 Transmitted (Neurontin Capsule) 14:00 Pantoprazole PHA 06/20/25 Transmitted (Protonix) 10:00 Stool Occult Blood LAB 06/19/25 Transmitted 12:35 Complete Blood Count LAB 06/20/25 Verified 04:00 Date of Service: Jun 19, 2025 Billing Provider: ALTHEA KINGSTON NP Common Visit Codes: [id number] INP/OBS CARE(HIGH) Secondary Visit Codes: [id number] CARE PLAN 30 MINUTES ATLHEA KINGSTON NP Jun 19, 2025 12:48
--- NOTE | 2025-06-20 11:13 | DVHINCON2 ---
Date of service: Jun 19, 2025 Referring Physician Destiny Mena, nurse practitioner Reason for Consultation Acute kidney injury History of Present Illness Patient is a 69-year-old female who [place] to live with her daughter [place] in the [place] [facility], with past medical history significant for pancreatic cancer diagnosed March 2024 want to with living in [place] status post chemotherapy and Whipple procedure, High Lipids, and HTN is admitted for generalized weakness for one month. On admission patient found to have elevated creatinine nephrology is consulted for acute kidney injury Past Medical History PAST MEDICAL HISTORY: Pancreatic cancer, High Lipids, HTN Past Surgical History Whipple procedure done in [place] Allergies: Coded Allergies: Penicillins (Verified Allergy, Unknown, 06/18/25) Sulfa Antibiotics (Verified Allergy, Unknown, 06/18/25) Home Meds Reported Medications Atorvastatin Calcium (ATORVASTATIN CALCIUM) 40 Mg Tab, 1 TAB PO DAILY, #30 TAB 5 Refills 06/19/25 Gabapentin (Once-Daily) (Gabapentin) 300 Mg Tab, 300 MG PO TID, TAB 06/19/25 Propranolol Hcl (Inderal La) 60 Mg Cap, 30 MG PO BID, CAP 06/19/25 Ropinirole Hydrochloride (Ropinirole Hcl) 0.5 Mg Tab, 0.5 MG PO DAILY, TAB 06/19/25 Cholecalciferol (D3) 2,000 Unit Cap, 2000 UNIT PO, CAP 06/19/25 Magnesium (Magnesium 250 mg) 1 Tab Tab, 1 TAB PO, TAB 06/19/25 Losartan Potassium (Losartan Potassium) 25 Mg Tab, 25 MG PO DAILY for 30 Days, MG 06/19/25 Losartan Potassium (Losartan Potassium) 50 Mg Tab, 50 MG PO DAILY for 30 Days, MG 06/19/25 Pantoprazole Sodium (PANTOPRAZOLE SODIUM) 40 Mg Inj, 40 MG PO DAILY, INJ 06/19/25 Current Medications Current Medications Medications (Trade) Dose Ordered Sig/Anni Route PRN Reason Start Time Stop Time Status Last Admin Cefepime HCl 50 ml @ 12.5 mls/hr DAILY IV 06/19/25 10:00 06/19/25 10:55 DC 06/19/25 09:44 Diagnostic Test (Pha) (Accu-Chek Comfort Curve T) 1 strip ACHS 06/18/25 17:00 06/19/25 11:30 Insulin Human Regular (InsuLIN R) ACHS SC 06/18/25 17:00 06/19/25 06:35 Meropenem 50 ml @ 17 mls/hr Q12HR IV 06/19/25 11:00 06/19/25 11:00 Oxycodone HCl 5 mg Q6HP PRN PO MODERATE PAIN (4-6 PAIN SCALE) 06/19/25 11:00 06/19/25 12:35 Hydromorphone HCl (Dilaudid Injection) 0.25 mg Q4HPRN PRN IV SEVERE PAIN (7-10 PAIN SCALE) 06/19/25 11:00 Acetaminophen (Tylenol Tablet Or Capsule) 500 mg Q8HP PRN PO PAIN SCALE 1-3 OR TEMP>100.4 06/19/25 11:00 Ondansetron HCl (Zofran) 4 mg Q6HP PRN IV NAUSEA / VOMITING 06/19/25 11:00 Docusate Sodium (Colace Capsule) 100 mg BID PRN PO FOR CONSTIPATION 06/19/25 11:00 Sodium Chloride 1,000 ml @ 75 mls/hr [id number] IV 06/19/25 11:00 06/19/25 11:00 Apixaban (Eliquis) 5 mg BID PO 06/19/25 22:00 UNV Patient Own Medication 300 mg TID PO 06/19/25 14:00 UNV Gabapentin (Neurontin Capsule) 300 mg TID PO 06/19/25 14:00 UNV Pantoprazole Sodium (Protonix) 40 mg DAILY IV 06/20/25 10:00 UNV Review of Systems All 12 item review of systems reviewed with the patient nonsignificant except what is mentioned in the history of present illness H&P Exam Vital Signs/I&O Vital Sign Date Time Temp Pulse Resp B/P (MAP) Pulse Ox O2 Delivery O2 Flow Rate FiO2 06/19/25 12:30 67 113/37 (62) 98 06/19/25 12:00 16 06/19/25 11:30 Room Air* 0 21 06/19/25 00:15 97.8 97.8 Intake and Output 06/18/25 06/19/25 19:00 07:00 Intake Total 1553.75 ml 1270.00 ml Output Total 100 ml Balance 1553.75 ml 1170.00 ml IV Total 1553.75 ml 970.00 ml Other 300 ml Output Urine Total 100 ml # Bowel Movements 1 Physical Exam Obese female lying comfortably in bed Lungs clear to auscultation bilaterally Cardiac exam regular rate and rhythm Abdomen obese nontender was normal Extremity 1+ edema Neuro nonfocal Labs/Diagnostic Data Labs/Diagnostic Data Laboratory Tests Test 06/19/25 14:19 06/19/25 12:53 06/19/25 12:34 06/19/25 02:00 Range/Units White Blood Count 35.0 #*H 47.8 *H 4.4-10.8 10^3/uL Red Blood Count 3.21 L 3.60 L 4.0-5.20 10^6/uL Hemoglobin 9.4 L 10.5 #L 12.2-16.2 g/dL Hematocrit 30.3 L 33.1 #L 36.0-46.0 % Mean Corpuscular Volume 94.2 91.8 80.0-100.0 fL Mean Corpuscular Hemoglobin 29.1 29.2 28.0-32.0 pg Mean Corpuscular Hemoglobin Concent 30.9 L 31.8 L 32.0-36.0 g/dL Red Cell Distribution Width 20.9 H 20.6 H 11.8-14.3 % Platelet Count 339 380 140-450 10^3/uL Mean Platelet Volume 8.5 8.5 6.9-10.8 fL Neutrophils (%) (Auto) 91.0 H 37.0-80.0 % Lymphocytes (%) (Auto) 5.5 L 10.0-50.0 % Monocytes (%) (Auto) 3.3 0.0-12.0 % Eosinophils (%) (Auto) 0.1 0.0-7.0 % Basophils (%) (Auto) 0.1 0.0-2.0 % Neutrophils # (Auto) 31.9 H 1.6-8.6 10 ^3/uL Lymphocytes # (Auto) 1.9 0.4-5.4 10 ^3/uL Monocytes # (Auto) 1.2 0-1.3 10 ^3/uL Eosinophils # (Auto) 0 0-0.8 10 ^3/uL Basophils # (Auto) 0 0-0.2 10 ^3/uL Nucleated Red Blood Cells 0.0 % Sodium Level 135 L 136-145 mmol/L Potassium Level 4.1 3.5-5.1 mmol/L Chloride Level 105 98-107 mmol/L Carbon Dioxide Level 20 20-31 mmol/L Anion Gap 10 5-15 Blood Urea Nitrogen 30 #H 9-23 mg/dL Creatinine 2.34 H 0.550-1.02 mg/dL Glomerular Filtration Rate Calc 22 >90 mL/min BUN/Creatinine Ratio 12.8 10.0-20.0 Serum Glucose 160 H 74-106 mg/dL Calcium Level 8.0 L 8.7-10.4 mg/dL Total Bilirubin 0.4 0.2-1.0 mg/dL Aspartate Amino Transferase (AST) 51 H 13-40 U/L Alanine Aminotransferase (ALT) 35 7-40 U/L Alkaline Phosphatase 310 H 46-116 U/L B-Type Natriuretic Peptide 334.32 0-100 pg/mL Total Protein 5.9 5.7-8.2 g/dL Albumin 2.9 L 3.2-4.8 g/dL POC Glucose 150 H 70-106 mg/dl Differential Total Cells Counted 100.0 100 Neutrophils % (Manual) 96 H 37.0-80.0 Band Neutrophils % (Manual) 0 Lymphocytes % (Manual) 3 L 10.0-50.0 Monocytes % (Manual) 1 0-12 Eosinophils % (Manual) 0 0-7 Basophils % (Manual) 0 0.0-2.0 Metamyelocytes % (manual) 0 Myelocytes % (Manual) 0 Promyelocytes % (Manual) 0 Blast Cells % (Manual) 0 Reactive Lymphocytes 0 Platelet Estimate Adequate Large Platelets Few Anisocytosis (manual) Slight Lactic Acid Level 1.3 0.4-2.0 mmol/L Test 06/18/25 18:11 06/18/25 15:43 06/18/25 12:35 06/18/25 10:35 Range/Units POC Glucose 203 H 70-106 mg/dl Urine Color Yellow Yellow Urine Clarity Turbid H Clear Urine pH 5.5 5.0-9.0 Urine Specific [place] 1.015 1.001-1.035 Urine Protein 1+ H Negative Urine Ketones Negative Negative Urine Blood Negative Negative /uL Urine Nitrite Negative Negative Urine Bilirubin Negative Negative Urine Urobilinogen 2 H Negative mg/dL Urine Leukocyte Esterase Negative Negative /uL Urine RBC 5 0 - 4 /hpf Urine Microscopic WBC 17 H 0-5 /HPF Urine Squamous Epithelial Cells Few <5 /hpf Urine Bacteria None seen None Seen /hpf Urine Hyaline Casts Mod 0 - 2 /lpf Urine Mucus Few None Seen Urine Glucose Normal Normal mg/dL Lactic Acid Level 1.1 1.9 0.4-2.0 mmol/L Test 06/18/25 08:35 Range/Units White Blood Count 60.8 *H 4.4-10.8 10^3/uL Red Blood Count 1.90 L 4.0-5.20 10^6/uL Hemoglobin 5.6 *L 12.2-16.2 g/dL Hematocrit 17.8 L 36.0-46.0 % Mean Corpuscular Volume 93.8 80.0-100.0 fL Mean Corpuscular Hemoglobin 29.3 28.0-32.0 pg Mean Corpuscular Hemoglobin Concent 31.3 L 32.0-36.0 g/dL Red Cell Distribution Width 23.2 H 11.8-14.3 % Platelet Count 399 140-450 10^3/uL Mean Platelet Volume 8.9 6.9-10.8 fL Neutrophils (%) (Auto) 37.0-80.0 % Lymphocytes (%) (Auto) 10.0-50.0 % Monocytes (%) (Auto) 0.0-12.0 % Basophils (%) (Auto) 0.0-2.0 % Neutrophils # (Auto) 1.6-8.6 10 ^3/uL Lymphocytes # (Auto) 0.4-5.4 10 ^3/uL Monocytes # (Auto) 0-1.3 10 ^3/uL Differential Total Cells Counted 100.0 100 Neutrophils % (Manual) 80 37.0-80.0 Band Neutrophils % (Manual) 15 Lymphocytes % (Manual) 3 L 10.0-50.0 Monocytes % (Manual) 1 0-12 Eosinophils % (Manual) 0 0-7 Basophils % (Manual) 0 0.0-2.0 Metamyelocytes % (manual) 0 Myelocytes % (Manual) 1 Promyelocytes % (Manual) 0 Blast Cells % (Manual) 0 Reactive Lymphocytes 0 Platelet Estimate Adequate Clumped Platelets Few Anisocytosis (manual) Slight Reticulocyte Count (auto) 2.03 H 0.5-1.5 % Prothrombin Time 14.1 H 9.3-11.8 sec Prothrombin Time INR 1.37 H 0.9-1.15 Activated Partial Thromboplast Time 34.0 24.5-34.5 SEC Sodium Level 136 136-145 mmol/L Potassium Level 4.7 3.5-5.1 mmol/L Chloride Level 103 98-107 mmol/L Carbon Dioxide Level 20 20-31 mmol/L Anion Gap 13 5-15 Blood Urea Nitrogen 20 9-23 mg/dL Creatinine 2.81 H 0.550-1.02 mg/dL Glomerular Filtration Rate Calc 18 >90 mL/min BUN/Creatinine Ratio 7.1 L 10.0-20.0 Serum Glucose 125 H 74-106 mg/dL Hemoglobin A1c < 3.8 <5.7 % A1C Lactic Acid Level 3.2 *H 0.4-2.0 mmol/L Calcium Level 8.2 L 8.7-10.4 mg/dL Total Bilirubin 1.0 0.2-1.0 mg/dL Aspartate Amino Transferase (AST) 96 H 13-40 U/L Alanine Aminotransferase (ALT) 42 H 7-40 U/L Alkaline Phosphatase 391 H 46-116 U/L Lactate Dehydrogenase 280 H 120-246 U/L Total Protein 6.4 5.7-8.2 g/dL Albumin 3.2 3.2-4.8 g/dL Assessment Acute kidney injury superimposed Chronic Kidney Disease secondary hemodynamic mediated Left hydroureteronephrosis Obstructive uropathy Severe anemia rule out blood loss Hyperglycemia pancreatic cancer, history of Whipple procedure 2023 Hepatic metastasis Sepsis Hypoalbuminemia Recommendations Closely monitor fluid and electrolytes Avoid nephrotoxic medications Strict I&Os Packed red blood cell transfusion p.r.n. Stool for occult blood Insulin sliding scale IV antibiotics GI consult Urology consult We will continue to follow Patient seen and examined by myself in the ER. I discussed my plan of care with the patient, her two daughters and the primary nurse at the bedside I would like to thank Destiny for the consult, will follow Plan discussed with: Patient AKILA PASTRANA MD Jun 19, 2025 13:25
--- NOTE | 2025-06-20 11:40 | DVHINCON2 ---
Date of service: Jun 20, 2025 Referring Physician Hospitalist Reason for Consultation left hydronephrosis History of Present Illness 69-year-old female BIBA with prior medical history of pancreatic cancer, hypertension, high lipids and a chief complaint of generalized weakness for one month. Patient has azotemia, elevated WBC and left hydronephrosis with poor ureteral jetting due to uterine/pelvic mass obstructing the ureter. Chief Complaint: Low Blood Pressure Reviewed Notes: Nurses Notes, Medications, Allergies Allergies: Coded Allergies: Penicillins (Verified Allergy, Unknown, 06/18/25) Sulfa Antibiotics (Verified Allergy, Unknown, 06/18/25) Information Source: Patient, Emergency Med Personnel Mode of Arrival: EMS Severity: Moderate Timing: Weeks Duration: Since onset Prehospital treatment: None Past Medical History Cancer (Pancreatic), High Lipids, HTN Allergies: Coded Allergies: Penicillins (Verified Allergy, Unknown, 06/18/25) Sulfa Antibiotics (Verified Allergy, Unknown, 06/18/25) Home Meds Reported Medications Atorvastatin Calcium (ATORVASTATIN CALCIUM) 40 Mg Tab, 1 TAB PO DAILY, #30 TAB 5 Refills 06/19/25 Gabapentin (Once-Daily) (Gabapentin) 300 Mg Tab, 300 MG PO TID, TAB 06/19/25 Propranolol Hcl (Inderal La) 60 Mg Cap, 30 MG PO BID, CAP 06/19/25 Ropinirole Hydrochloride (Ropinirole Hcl) 0.5 Mg Tab, 0.5 MG PO DAILY, TAB 06/19/25 Cholecalciferol (D3) 2,000 Unit Cap, 2000 UNIT PO, CAP 06/19/25 Magnesium (Magnesium 250 mg) 1 Tab Tab, 1 TAB PO, TAB 06/19/25 Losartan Potassium (Losartan Potassium) 25 Mg Tab, 25 MG PO DAILY for 30 Days, MG 06/19/25 Losartan Potassium (Losartan Potassium) 50 Mg Tab, 50 MG PO DAILY for 30 Days, MG 06/19/25 Pantoprazole Sodium (PANTOPRAZOLE SODIUM) 40 Mg Inj, 40 MG PO DAILY, INJ 06/19/25 Current Medications Current Medications Medications (Trade) Dose Ordered Sig/Anni Route PRN Reason Start Time Stop Time Status Last Admin Cefepime HCl 50 ml @ 12.5 mls/hr DAILY IV 06/19/25 10:00 06/19/25 10:55 DC 06/19/25 09:44 Meropenem 50 ml @ 17 mls/hr Q12HR IV 06/19/25 11:00 06/19/25 14:53 DC 06/19/25 11:00 Oxycodone HCl 5 mg Q6HP PRN PO MODERATE PAIN (4-6 PAIN SCALE) 06/19/25 11:00 06/19/25 21:18 Hydromorphone HCl (Dilaudid Injection) 0.25 mg Q4HPRN PRN IV SEVERE PAIN (7-10 PAIN SCALE) 06/19/25 11:00 Acetaminophen (Tylenol Tablet Or Capsule) 500 mg Q8HP PRN PO PAIN SCALE 1-3 OR TEMP>100.4 06/19/25 11:00 Ondansetron HCl (Zofran) 4 mg Q6HP PRN IV NAUSEA / VOMITING 06/19/25 11:00 Docusate Sodium (Colace Capsule) 100 mg BID PRN PO FOR CONSTIPATION 06/19/25 11:00 06/19/25 14:57 DC Sodium Chloride 1,000 ml @ 75 mls/hr [id number] IV 06/19/25 11:00 06/19/25 14:55 DC 06/19/25 11:00 Apixaban (Eliquis) 5 mg BID PO 06/19/25 22:00 06/19/25 21:18 Patient Own Medication 300 mg TID PO 06/19/25 14:00 06/19/25 16:14 Gabapentin (Neurontin Capsule) 300 mg TID PO 06/19/25 14:00 06/19/25 15:44 DC Pantoprazole Sodium (Protonix) 40 mg DAILY IV 06/20/25 10:00 Levofloxacin/ Dextrose 100 ml @ 100 mls/hr Q48H IV 06/19/25 15:00 06/19/25 17:01 DC 06/19/25 16:13 Sodium Chloride 1,000 ml @ 100 mls/hr Q10H IV 06/19/25 15:00 06/20/25 04:30 Sennosides (Senokot Tablet) 17.2 mg QHSP PRN PO FOR CONSTIPATION 06/19/25 15:00 Gabapentin (Neurontin Capsule) 300 mg BID PO 06/19/25 22:00 06/19/25 21:18 Clindamycin Phosphate 50 ml @ 100 mls/hr Q8HR IV 06/19/25 22:00 06/20/25 06:08 Review of Systems Constitutional: reports: weakness; denies: chills, diaphoresis, fatigue, fever, malaise, sweats, others EENTM: denies: blurred vision, double vision, ear bleeding, ear discharge, ear drainage, ear pain, ear ringing, eye pain, eye redness, hearing loss, mouth pain, mouth swelling, nasal discharge, nose bleeding, nose congestion, nose pain, photophobia, tearing, throat pain, throat swelling, voice changes, others Respiratory: denies: cough, hemoptysis, orthopnea, SOB at rest, shortness of breath, SOB with excertion, stridor, wheezing, others Cardiovascular: denies: chest pain, dizzy spells, diaphoresis, Dyspnea on exertion, edema, irregular heart beat, left arm pain, lightheadedness, palpitations, PND, syncope, others Gastrointestinal: reports: abdominal pain; denies: abdomen distended, blood streaked bowels, constipated, diarrhea, dysphagia, difficulty swallowing, hematemesis, melena, nausea, poor appetite, poor fluid intake, rectal bleeding, rectal pain, vomiting, others Genitourinary: Reports right back pain Neurological: denies: dizziness, fainting, headache, left sided numbness, left sided weakness, numbness, paresthesia, pre-existing deficit, right sided numbness, right sided weakness, seizure, speech problems, tingling, tremors, weakness, others Musculoskeletal: denies: back pain, gout, joint pain, joint swelling, muscle pain, muscle stiffness, neck pain, others Integumetry: denies: bruises, change in color, change in hair/nails, dryness, laceration, lesions, lumps, rash, wounds, others Allergic/Immunocompromised: denies: Difficulty Healing, Frequent Infections, Hives, Itching, others Hematologic/Lymphatic: denies: anemia, blood clots, easy bleeding, easy bruising, swollen glands, others Endocrine: denies: excessive hunger, excessive sweating, excessive thirst, excessive urination, flushing, intolerance to cold, intolerance to heat, unexplained weight gain, unexplained weight loss, others Psychiatric: denies: anxiety, bipolar disorder, depression, hopeless, panic disorder, schizophrenia, sleepless, suicidal, others All Other Systems: Reviewed and Negative Vital Signs Vital Signs Date Time Temp Pulse Resp B/P (MAP) Pulse Ox O2 Delivery O2 Flow Rate FiO2 06/20/25 05:00 98.3 76 18 137/81 (99) 99 98.3 06/19/25 20:00 Room Air* 0 21 Physical Exam General Appearance: Moderate Distress, Obese HEENT: Normal ENT Inspection, Pharynx Normal, TMs Normal Neck: Full Range of Motion, Non-Tender, Normal, Normal Inspection Respiratory: Chest Non-Tender, Lungs Clear, No Accessory Muscle Use, No Respiratory Distress, Normal Breath Sounds Cardiovascular: No Edema, No JVD, No Murmur, No Gallop, Normal Peripheral Pulses, Regular Rate/Rhythm Breast Exam: Deferred Gastrointestinal: No Organomegaly, Non Tender, No Pulsatile Mass, Normal Bowel Sounds, Soft Genitalia: Bennett in place Pelvic: Deferred Rectal: Deferred Extremities: No calf tenderness, Normal capillary refill, Non-tender, No pedal edema Musculoskeletal : Apperance: Normal Neurologic: Alert, senior web analyst II-XII nml as Tested, No Motor Deficits, Normal Affect, Normal Mood, No Sensory Deficits Cerebellar Function: NOT DONE Reflexes: NOT DONE Skin: Dry, Normal Color, Warm Peripheral Pulses: 3+ Radial (R), 3+ Radial (L) Lymphatic: No Adenopathy Labs/Diagnostic Data Labs Test 06/20/25 04:14 06/19/25 21:23 06/19/25 14:19 06/19/25 12:53 Range/Units White Blood Count 23.6 #H 4.4-10.8 10^3/uL Red Blood Count 3.43 L 4.0-5.20 10^6/uL Hemoglobin 9.9 L 12.2-16.2 g/dL Hematocrit 30.4 L 36.0-46.0 % Mean Corpuscular Volume 88.7 # 80.0-100.0 fL Mean Corpuscular Hemoglobin 29.0 28.0-32.0 pg Mean Corpuscular Hemoglobin Concent 32.7 32.0-36.0 g/dL Red Cell Distribution Width 20.5 H 11.8-14.3 % Platelet Count 337 140-450 10^3/uL Mean Platelet Volume 8.2 6.9-10.8 fL Neutrophils (%) (Auto) 89.7 H 37.0-80.0 % Lymphocytes (%) (Auto) 5.7 L 10.0-50.0 % Monocytes (%) (Auto) 4.2 0.0-12.0 % Eosinophils (%) (Auto) 0.1 0.0-7.0 % Basophils (%) (Auto) 0.3 0.0-2.0 % Neutrophils # (Auto) 21.2 H 1.6-8.6 10 ^3/uL Lymphocytes # (Auto) 1.3 0.4-5.4 10 ^3/uL Monocytes # (Auto) 1.0 0-1.3 10 ^3/uL Eosinophils # (Auto) 0 0-0.8 10 ^3/uL Basophils # (Auto) 0.1 0-0.2 10 ^3/uL Nucleated Red Blood Cells 0.0 % Sodium Level 136 136-145 mmol/L Potassium Level 4.2 3.5-5.1 mmol/L Chloride Level 106 98-107 mmol/L Carbon Dioxide Level 21 20-31 mmol/L Anion Gap 9 5-15 Blood Urea Nitrogen 29 H 9-23 mg/dL Creatinine 1.71 H 0.550-1.02 mg/dL Glomerular Filtration Rate Calc 32 >90 mL/min BUN/Creatinine Ratio 17.0 10.0-20.0 Serum Glucose 120 H 74-106 mg/dL Calcium Level 8.1 L 8.7-10.4 mg/dL Total Bilirubin 0.5 0.2-1.0 mg/dL Aspartate Amino Transferase (AST) 35 13-40 U/L Alanine Aminotransferase (ALT) 30 7-40 U/L Alkaline Phosphatase 297 H 46-116 U/L Total Protein 5.9 5.7-8.2 g/dL Albumin 2.9 L 3.2-4.8 g/dL POC Glucose 141 H 70-106 mg/dl B-Type Natriuretic Peptide 334.32 0-100 pg/mL Test 06/19/25 02:00 06/18/25 15:43 06/18/25 08:35 Range/Units Differential Total Cells Counted 100.0 100 Neutrophils % (Manual) 96 H 37.0-80.0 Band Neutrophils % (Manual) 0 Lymphocytes % (Manual) 3 L 10.0-50.0 Monocytes % (Manual) 1 0-12 Eosinophils % (Manual) 0 0-7 Basophils % (Manual) 0 0.0-2.0 Metamyelocytes % (manual) 0 Myelocytes % (Manual) 0 Promyelocytes % (Manual) 0 Blast Cells % (Manual) 0 Reactive Lymphocytes 0 Platelet Estimate Adequate Large Platelets Few Anisocytosis (manual) Slight Lactic Acid Level 1.3 0.4-2.0 mmol/L Urine Color Yellow Yellow Urine Clarity Turbid H Clear Urine pH 5.5 5.0-9.0 Urine Specific [place] 1.015 1.001-1.035 Urine Protein 1+ H Negative Urine Ketones Negative Negative Urine Blood Negative Negative /uL Urine Nitrite Negative Negative Urine Bilirubin Negative Negative Urine Urobilinogen 2 H Negative mg/dL Urine Leukocyte Esterase Negative Negative /uL Urine RBC 5 0 - 4 /hpf Urine Microscopic WBC 17 H 0-5 /HPF Urine Squamous Epithelial Cells Few <5 /hpf Urine Bacteria None seen None Seen /hpf Urine Hyaline Casts Mod 0 - 2 /lpf Urine Mucus Few None Seen Urine Glucose Normal Normal mg/dL Clumped Platelets Few Reticulocyte Count (auto) 2.03 H 0.5-1.5 % Prothrombin Time 14.1 H 9.3-11.8 sec Prothrombin Time INR 1.37 H 0.9-1.15 Activated Partial Thromboplast Time 34.0 24.5-34.5 SEC Hemoglobin A1c < 3.8 <5.7 % A1C Lactate Dehydrogenase 280 H 120-246 U/L Microbiology Date/Time Source Procedure Growth Status 06/18/25 15:43 Voided Urine Urine Culture - Preliminary Resulted 06/18/25 08:35 Blood Blood Culture - Preliminary NO GROWTH AFTER 24 HOURS OF INCUBATION. Resulted PATIENT: GAIL ABAD ACCT: [id number] UNIT: [id number] : 1955 LOC: [facility] ROOM / BED: [facility] / A AGE / SEX: 69 / F ADM STATUS: ADM IN SERVICE 17 ORDERING PHYSICIAN: BRADLEY CORDERO MD PROCEDURE(s): BLDR - BLADDER REASON: look for ureteral jetting ORDER NUMBER(s): [id number], ACCESSION NUMBER(s): [id number] INDICATION: look for ureteral jetting TECHNIQUE: Multiple real-time grayscale transabdominal sonographic images along with color and duplex Doppler of the uterus and ovaries were obtained. COMPARISON: None FINDINGS: Bennett catheter poorly visualized. Bennett catheter visualized on CT abdomen and pelvis done same day. Bilateral ureteral jets not visualized. IMPRESSION: 1. Bennett catheter poorly visualized 2. Ureteral jets not visualized. ATED BY: NELSON MONTEJO Jr., DO DICTATED DATE/TIME: 06/19/252008 SIGNED BY: NELSON MONTEJO Jr., SIGNED DATE/TIME: 06/19/252008 CC: Assessment Left ureteral obstruction due to pelvic/uterine mass Azotemia Left hydronephrosis Obesity Plan/Recommendation Left PNT placements per IR service requested Plan discussed with: Patient, Other BRADLEY CORDERO MD Jun 20, 2025 07:10
--- NOTE | 2025-06-20 11:45 | DVHPN2 ---
Subjective Patient continues to report having generalized weakness Reviewed: Care Plan, H&P, Labs, Medications Changes from previous H/P or p: No Changes General: Per HPI Objective Vitals Vital Signs Date Time Temp Pulse Resp B/P (MAP) Pulse Ox O2 Delivery O2 Flow Rate FiO2 06/20/25 09:00 98.3 80 18 139/75 (96) 96 98.3 06/19/25 20:00 Room Air* 0 21 Intake/Output Intake and Output 06/20/25 07:00 Intake Total 1812 ml Balance 1812 ml Intake Oral 480 ml IV Total 1332 ml General Appearance: Alert, Oriented X3, Cooperative, mild distress HEENT: Atraumatic, PERRLA Lungs: Clear to auscultation, Normal air movement Cardiovascular: Normal S1, Normal S2 Abdomen: Normal bowel sounds, Soft, No tenderness, No hepatospenomegaly Genitourinary: No Apparent Abnormalities Musculoskeletal: Normal sensory function, Normal motor function Skin: Dry, Intact Psych/Mental Status: Mental status NL, Mood NL Medications Current Medications Medications Dose Ordered Sig/Anni Route Start Time Stop Time Status Last Admin Dose Admin Metronidazole 100 ml @ 100 mls/hr Q8HR IV 06/18/25 14:00 06/20/25 05:07 100 MLS/HR Nitroglycerin 0.4 mg Q5MINP PRN SL 06/18/25 13:00 Morphine Sulfate 2 mg Q30M PRN IV 06/18/25 13:00 Diagnostic Test (Pha) 1 strip ACHS 06/18/25 17:00 06/20/25 06:09 1 STRIP Insulin Human Regular ACHS SC 06/18/25 17:00 06/19/25 17:36 3 UNITS Dextrose 50 ml UD PRN IV 06/18/25 13:15 Oxycodone HCl 5 mg Q6HP PRN PO 06/19/25 11:00 06/19/25 21:18 5 MG Hydromorphone HCl 0.25 mg Q4HPRN PRN IV 06/19/25 11:00 Acetaminophen 500 mg Q8HP PRN PO 06/19/25 11:00 Ondansetron HCl 4 mg Q6HP PRN IV 06/19/25 11:00 Apixaban 5 mg BID PO 06/19/25 22:00 06/19/25 21:18 5 MG Patient Own Medication 300 mg TID PO 06/19/25 14:00 06/19/25 16:14 300 MG Pantoprazole Sodium 40 mg DAILY IV 06/20/25 10:00 Sodium Chloride 1,000 ml @ 100 mls/hr Q10H IV 06/19/25 15:00 06/20/25 04:30 100 MLS/HR Sennosides 17.2 mg QHSP PRN PO 06/19/25 15:00 Gabapentin 300 mg BID PO 06/19/25 22:00 06/19/25 21:18 300 MG Clindamycin Phosphate 50 ml @ 100 mls/hr Q8HR IV 06/19/25 22:00 06/20/25 06:08 100 MLS/HR Laboratory Results Laboratory Tests 06/20/25 04:14 Chemistry Test 06/19/25 12:53 06/20/25 04:14 Albumin 2.9 g/dL (3.2-4.8) L 2.9 g/dL (3.2-4.8) L Calcium Level 8.0 mg/dL (8.7-10.4) L 8.1 mg/dL (8.7-10.4) L Total Protein 5.9 g/dL (5.7-8.2) 5.9 g/dL (5.7-8.2) Cardiac Markers Test 06/19/25 12:53 B-Type Natriuretic Peptide 334.32 pg/mL (0-100) LFT Test 06/19/25 12:53 06/20/25 04:14 Alanine Aminotransferase (ALT) 35 U/L (7-40) 30 U/L (7-40) Alkaline Phosphatase 310 U/L (46-116) H 297 U/L (46-116) H Aspartate Amino Transferase (AST) 51 U/L (13-40) H 35 U/L (13-40) Total Bilirubin 0.4 mg/dL (0.2-1.0) 0.5 mg/dL (0.2-1.0) Urinalysis Test 06/18/25 15:43 Urine Color Yellow (Yellow) Urine Clarity Turbid (Clear) H Urine pH 5.5 (5.0-9.0) Urine Specific [place] 1.015 (1.001-1.035) Urine Protein 1+ (Negative) H Urine Ketones Negative (Negative) Urine Blood Negative /uL (Negative) Urine Nitrite Negative (Negative) Urine Bilirubin Negative (Negative) Urine Urobilinogen 2 mg/dL (Negative) H Urine Leukocyte Esterase Negative /uL (Negative) Urine RBC 5 /hpf (0 - 4) Urine Microscopic WBC 17 /HPF (0-5) H Urine Squamous Epithelial Cells Few /hpf (<5) Urine Bacteria None seen /hpf (None Seen) Urine Hyaline Casts Mod /lpf (0 - 2) Urine Mucus Few (None Seen) Urine Glucose Normal mg/dL (Normal) Microbiology Microbiology Date/Time Source Procedure Growth Status 06/18/25 15:43 Voided Urine Urine Culture - Preliminary Resulted 06/18/25 08:35 Blood Blood Culture - Preliminary NO GROWTH AFTER 48 HOURS OF INCUBATION. Resulted Labs and/or images reviewed: Labs reviewed by me, Image(s) reviewed by me Assessment/Plan Assessment/Plan Impression: -sepsis -severe anemia, rule out GI bleed -pancreatic cancer, status post Whipple procedure from one year ago -septic shock -acute kidney injury, vasomotor nephropathy -obesity -primary hypertension -history of DVT -peripheral neuropathy Plan: Events: Patient had questionable reaction to Meropenem. Also noted to have penicillin allergy. Attempted to start Levaquin, with the patient's QTC greater than 500. Patient placed on clindamycin and Flagyl with improvement with the patient's white blood cell count. -CT scan of the abdomen and pelvis: Reveals left hydroureteronephrosis. Urology consultation was placed with recommendations for nephrostomy tube placement. Patient is currently on Eliquis, for which patient will have re-evaluation for nephrostomy tube placement this coming Monday. -repeat renal ultrasound tomorrow -IV hydration -PPI -stop Eliquis, transitioned to therapeutic dose Lovenox -amya cultures: No growth -continue current antimicrobial therapy with Flagyl and clindamycin -code status: DNI Total time spent with patient discussing and formulating plan of care: 35 minutes. This medical document was created using an electronic medical record system with [employer] system. Although this document has been carefully reviewed, there may still be some phonetic and typographical errors. These areas are purely typographical due to imperfections of the software programs, and do not reflect any compromise in the patient's medical care. Plan discussed with: Patient, Daughter, Other (RN) My Orders Orders - ALTHEA KINGSTON NP Procedure Category Date Status Time (Nf) Gabapentin PHA 06/19/25 In Process (Once-Daily) 14:00 Pantoprazole PHA 06/20/25 In Process (Protonix) 10:00 Transfer Orders XFER 06/19/25 Transmitted 14:01 Sodium Chloride 0.9% PHA 06/19/25 In Process 15:00 * Urology Consult CONS 06/19/25 Transmitted 14:52 Senna Pod Tablet PHA 06/19/25 In Process (Senokot Tablet) 15:00 * Wound Consult CONS 06/19/25 Transmitted Gabapentin Capsule PHA 06/19/25 In Process (Neurontin Capsule) 22:00 Clindamycin 300mg Iv PHA 06/19/25 In Process (Cleocin Iv) 22:00 Kidney US 06/21/25 Logged 09:00 Complete Blood Count LAB 06/21/25 Verified 05:00 Complete Blood Count LAB 06/22/25 Verified 05:00 Complete Blood Count LAB 06/23/25 Verified 05:00 Date of Service: Jun 20, 2025 Billing Provider: ALTHEA KINGSTON NP Common Visit Codes: [id number] INP/OBS CARE(HIGH) ALTHEA KINGSTON NP Jun 20, 2025 11:21
[2025-06-20] MEDS: PANTOPRAZOLE 40 MG/10 ML VIAL INJ IV SCH (11:54)
[2025-06-20] MEDS: HYDROmorphone HCL 2 MG/ML VL/or syr IV PRN (11:55)
--- NOTE | 2025-06-20 15:11 | DVHPN2 ---
Progress Note Date Seen: Jun 20, 2025 Medical Necessity Reason Pt with a Central, PICC or Fol: Yes The following are medically ne: Bennett Catheter Subjective Patient reports: Feels better Objective vital signs Vital Sign Date Time Temp Pulse Resp B/P (MAP) Pulse Ox O2 Delivery O2 Flow Rate FiO2 06/20/25 13:00 98.6 82 18 116/67 (83) 98 98.6 06/19/25 20:00 Room Air* 0 21 Total Intake and Output 06/19/25 06/19/25 06/20/25 15:00 23:00 07:00 Intake Total 1812 ml Balance 1812 ml medications Current Medications Medications Dose Ordered Sig/Anni Route Start Time Stop Time Status Last Admin Dose Admin Metronidazole 100 ml @ 100 mls/hr Q8HR IV 06/18/25 14:00 06/20/25 05:07 100 MLS/HR Nitroglycerin 0.4 mg Q5MINP PRN SL 06/18/25 13:00 Morphine Sulfate 2 mg Q30M PRN IV 06/18/25 13:00 Diagnostic Test (Pha) 1 strip ACHS 06/18/25 17:00 06/20/25 11:46 1 STRIP Insulin Human Regular ACHS SC 06/18/25 17:00 06/19/25 17:36 3 UNITS Dextrose 50 ml UD PRN IV 06/18/25 13:15 Oxycodone HCl 5 mg Q6HP PRN PO 06/19/25 11:00 06/19/25 21:18 5 MG Hydromorphone HCl 0.25 mg Q4HPRN PRN IV 06/19/25 11:00 06/20/25 11:55 0.25 MG Acetaminophen 500 mg Q8HP PRN PO 06/19/25 11:00 Ondansetron HCl 4 mg Q6HP PRN IV 06/19/25 11:00 Pantoprazole Sodium 40 mg DAILY IV 06/20/25 10:00 06/20/25 11:54 40 MG Sodium Chloride 1,000 ml @ 100 mls/hr Q10H IV 06/19/25 15:00 06/20/25 04:30 100 MLS/HR Sennosides 17.2 mg QHSP PRN PO 06/19/25 15:00 Gabapentin 300 mg BID PO 06/19/25 22:00 06/20/25 11:53 300 MG Clindamycin Phosphate 50 ml @ 100 mls/hr Q8HR IV 06/19/25 22:00 06/20/25 06:08 100 MLS/HR Enoxaparin Sodium 100 mg Q12HR SC 06/20/25 22:00 Examination: GENERAL:Abnormal, CVS:Normal, ABDOMEN:Abnormal, :Abnormal laboratory and microbiology Laboratory Tests 06/20/25 04:14 Test 06/20/25 04:14 Range/Units Serum Glucose 120 H 74-106 mg/dL Microbiology Date/Time Source Procedure Growth Status 06/18/25 15:43 Voided Urine Urine Culture - Final Complete 06/18/25 08:35 Blood Blood Culture - Preliminary NO GROWTH AFTER 48 HOURS OF INCUBATION. Resulted Problem List/Assessment/Plan Problem List/Assessment/Plan Acute kidney injury superimposed Chronic Kidney Disease secondary hemodynamic mediated Left hydroureteronephrosis Obstructive uropathy Severe anemia rule out blood loss Hyperglycemia pancreatic cancer, history of Whipple procedure 2023 Hepatic metastasis Sepsis Hypoalbuminemia Renal function is improving with the current medical therapy Continue with IV fluid hydration Avoid hypotension Urology recommends percutaneous nephrostomy tube currently tentatively scheduled Monitoring urinary output via Bennett Antibiotics ordered broad-spectrum Avoid contrast at this time Plan discussed with: Patient CC Plasma Assessment Blood Product Administration S: [id number] FLAVAI PEREZ MD Jun 20, 2025 15:11
[2025-06-20] MEDS: guaiFENesin-DM 100/10mg/5ml SYR PO PRN (21:35)
[2025-06-20] MEDS: ENOXAPARIN SOD 100 MG/1 ML SYRINGE SC SCH (21:42)
[2025-06-21] VITALS (9 sets, daily range): BP systolic 98–122; BP diastolic 58–69; PULSE 77–91; RESP 17–18; TEMP 97.4–99.3; O2SAT 94–98
--- NOTE | 2025-06-21 02:53 | DVH ---
INDICATION: reassess hydro to left kidney TECHNIQUE: Multiple real-time sonographic images of the kidneys and bladder were obtained. COMPARISON: None FINDINGS: RIGHT kidney measures 11.1 cm in length with mildly decreased cortical thickness in Otherwise normal parenchymal echotexture. No nephrolithiasis or hydronephrosis. LEFT kidney measures 10.8 cm in length with normal cortical thickness and parenchymal echotexture. No nephrolithiasis. Mild hydronephrosis. No large intraluminal masses are seen in the bladder. Bennett catheter. IMPRESSION: 1. Mild left hydronephrosis. 2. Mildly decreased right renal cortical thickness.
[2025-06-21 05:06] LABS: Hemoglobin 7.3 g/dL (12.2-16.2); Nucleated Red Blood Cells % 0.0 %
[2025-06-21 05:09] LABS: Hematocrit 22.7 % (36.0-46.0); Mean Corpuscular Hemoglobin 29.8 pg (28.0-32.0); Mean Corpuscular Volume 92.6 fL (80.0-100.0)
[2025-06-21 05:26] LABS: Alanine Aminotransferase 16 U/L (7-40); Albumin 2.1 g/dL (3.2-4.8); Alkaline Phosphatase 250 U/L (46-116); Anion Gap 10 (5-15); BUN/Creatinine Ratio 15.2 (10.0-20.0); Bilirubin, Total 0.4 mg/dL (0.2-1.0); Blood Urea Nitrogen 15 mg/dL (9-23); Calcium 6.4 mg/dL (8.7-10.4); Carbon Dioxide 18 mmol/L (20-31); Chloride 112 mmol/L (98-107); Glucose 126 mg/dL (74-106); Potassium 3.4 mmol/L (3.5-5.1); Sodium 140 mmol/L (136-145); Total Protein 4.5 g/dL (5.7-8.2)
[2025-06-21] MEDS: POTASSIUM CHL 20MEQ/100ML 100 ML IV ONE (13:45)
[2025-06-21 14:10] LABS: Hematocrit 26.4 % (36.0-46.0); Hemoglobin 8.7 g/dL (12.2-16.2); Mean Corpuscular Hemoglobin 30.5 pg (28.0-32.0); Mean Corpuscular Volume 92.9 fL (80.0-100.0); Nucleated Red Blood Cells % 0.0 %
--- NOTE | 2025-06-21 14:52 | DVHPN2 ---
Progress Note Date Seen: Jun 21, 2025 Medical Necessity Reason Pt with a Central, PICC or Fol: Yes The following are medically ne: Bennett Catheter Subjective Patient reports: No new complaints Changes from previous H/P or p: No Changes Objective vital signs Vital Sign Date Time Temp Pulse Resp B/P (MAP) Pulse Ox O2 Delivery O2 Flow Rate FiO2 06/21/25 13:00 98.7 78 17 102/68 (79) 97 98.7 06/21/25 08:00 Room Air* 0 21 Total Intake and Output 06/20/25 06/20/25 06/21/25 15:00 23:00 07:00 Intake Total 500 ml 1200 ml Output Total 1000 ml Balance -500 ml 1200 ml medications Current Medications Medications Dose Ordered Sig/Anni Route Start Time Stop Time Status Last Admin Dose Admin Metronidazole 100 ml @ 100 mls/hr Q8HR IV 06/18/25 14:00 06/21/25 05:59 100 MLS/HR Nitroglycerin 0.4 mg Q5MINP PRN SL 06/18/25 13:00 Morphine Sulfate 2 mg Q30M PRN IV 06/18/25 13:00 Diagnostic Test (Pha) 1 strip ACHS 06/18/25 17:00 06/21/25 11:30 1 STRIP Insulin Human Regular ACHS SC 06/18/25 17:00 06/19/25 17:36 3 UNITS Dextrose 50 ml UD PRN IV 06/18/25 13:15 Oxycodone HCl 5 mg Q6HP PRN PO 06/19/25 11:00 06/21/25 13:45 5 MG Hydromorphone HCl 0.25 mg Q4HPRN PRN IV 06/19/25 11:00 06/21/25 06:42 0.25 MG Acetaminophen 500 mg Q8HP PRN PO 06/19/25 11:00 Ondansetron HCl 4 mg Q6HP PRN IV 06/19/25 11:00 Pantoprazole Sodium 40 mg DAILY IV 06/20/25 10:00 06/21/25 09:22 40 MG Sodium Chloride 1,000 ml @ 100 mls/hr Q10H IV 06/19/25 15:00 06/21/25 06:51 100 MLS/HR Sennosides 17.2 mg QHSP PRN PO 06/19/25 15:00 Gabapentin 300 mg BID PO 06/19/25 22:00 06/21/25 09:22 300 MG Clindamycin Phosphate 50 ml @ 100 mls/hr Q8HR IV 06/19/25 22:00 06/21/25 05:08 100 MLS/HR Enoxaparin Sodium 100 mg Q12HR SC 06/20/25 22:00 06/21/25 09:22 100 MG Guaifenesin/ Dextromethorphan 10 ml Q6HPRN PRN PO 06/20/25 20:15 06/20/25 21:35 10 ML Examination General Appearance: Alert, Oriented X3, Cooperative, mild distress HEENT: Atraumatic, PERRLA Lungs: Clear to auscultation, Normal air movement Cardiovascular: Normal S1, Normal S2 Abdomen: Normal bowel sounds, Soft, No tenderness, No hepatospenomegaly Genitourinary: No Apparent Abnormalities Musculoskeletal: Normal sensory function, Normal motor function Skin: Dry, Intact Psych/Mental Status: Mental status NL, Mood NL laboratory and microbiology Laboratory Tests 06/21/25 13:54 06/21/25 04:27 Test 06/21/25 04:27 Range/Units Serum Glucose 126 H 74-106 mg/dL Microbiology Date/Time Source Procedure Growth Status 06/19/25 07:50 Nose MRSA Screen - Final Complete 06/18/25 15:43 Voided Urine Urine Culture - Final Complete 06/18/25 08:35 Blood Blood Culture - Preliminary NO GROWTH AFTER 72 HOURS OF INCUBATION. Resulted Labs and/or images reviewed: Labs reviewed by me, Image(s) reviewed by me Problem List/Assessment/Plan Problem List/Assessment/Plan -sepsis -severe anemia, rule out GI bleed -pancreatic cancer, status post Whipple procedure from one year ago -septic shock -acute kidney injury, vasomotor nephropathy -obesity -primary hypertension -history of DVT -peripheral neuropathy Plan: Events: Patient had questionable reaction to Meropenem. Also noted to have penicillin allergy. Attempted to start Levaquin, with the patient's QTC greater than 500. Patient placed on clindamycin and Flagyl with improvement with the patient's white blood cell count. -CT scan of the abdomen and pelvis: Reveals left hydroureteronephrosis. Urology consultation was placed with recommendations for nephrostomy tube placement. Patient is currently on Eliquis, for which patient will have re-evaluation for nephrostomy tube placement this coming Monday. - renal ultrasound shows mild left hydro -IV hydration -PPI -stop Eliquis, transitioned to therapeutic dose Lovenox -maya cultures: No growth -continue current antimicrobial therapy with Flagyl and clindamycin -code status: DNI Total time spent with patient discussing and formulating plan of care: 35 minutes. Plan discussed with: Patient Dietary Evaluation Review Recommendations by RD: Protein Supplementation Comments: 1) Add cardiac restriction to diet 2) Initiate MVI @ 1 tb qd 3) Initiate vitamin C @ 500 mg bid and zinc sulfate @ 220 mg qd for 7 days 4) Initiate Ensure High Protein qd 5) Refer to outpatient RD for weight management 6) Follow-up with oncology and cardiology 7) Continue to monitor I&O, labs, and skin integrity Expected Outcomes/Goals: 1) appetite and labs to improve 2) wound to improve 3) gradual wt loss 4) f/u in 3-5 days Date of Service: Jun 21, 2025 Billing Provider: SONALI CORDERO MD Common Visit Codes: 25143-MDB/OBS SAME DATE (HIGH) CC Plasma Assessment Blood Product Administration S: [id number] SONALI CORDERO MD Jun 21, 2025 14:52
--- NOTE | 2025-06-21 15:51 | DVHPN2 ---
Progress Note Date Seen: Jun 21, 2025 Medical Necessity Reason Pt with a Central, PICC or Fol: Yes The following are medically ne: Bennett Catheter Subjective Patient reports: Feels better Changes from previous H/P or p: No Changes Objective vital signs Vital Sign Date Time Temp Pulse Resp B/P (MAP) Pulse Ox O2 Delivery O2 Flow Rate FiO2 06/21/25 13:00 98.7 78 17 102/68 (79) 97 98.7 06/21/25 08:00 Room Air* 0 21 Total Intake and Output 06/20/25 06/20/25 06/21/25 15:00 23:00 07:00 Intake Total 500 ml 1200 ml Output Total 1000 ml Balance -500 ml 1200 ml medications Current Medications Medications Dose Ordered Sig/Anni Route Start Time Stop Time Status Last Admin Dose Admin Metronidazole 100 ml @ 100 mls/hr Q8HR IV 06/18/25 14:00 06/21/25 05:59 100 MLS/HR Nitroglycerin 0.4 mg Q5MINP PRN SL 06/18/25 13:00 Morphine Sulfate 2 mg Q30M PRN IV 06/18/25 13:00 Diagnostic Test (Pha) 1 strip ACHS 06/18/25 17:00 06/21/25 11:30 1 STRIP Insulin Human Regular ACHS SC 06/18/25 17:00 06/19/25 17:36 3 UNITS Dextrose 50 ml UD PRN IV 06/18/25 13:15 Oxycodone HCl 5 mg Q6HP PRN PO 06/19/25 11:00 06/21/25 13:45 5 MG Hydromorphone HCl 0.25 mg Q4HPRN PRN IV 06/19/25 11:00 06/21/25 06:42 0.25 MG Acetaminophen 500 mg Q8HP PRN PO 06/19/25 11:00 Ondansetron HCl 4 mg Q6HP PRN IV 06/19/25 11:00 Pantoprazole Sodium 40 mg DAILY IV 06/20/25 10:00 06/21/25 09:22 40 MG Sodium Chloride 1,000 ml @ 100 mls/hr Q10H IV 06/19/25 15:00 06/21/25 06:51 100 MLS/HR Sennosides 17.2 mg QHSP PRN PO 06/19/25 15:00 Gabapentin 300 mg BID PO 06/19/25 22:00 06/21/25 09:22 300 MG Clindamycin Phosphate 50 ml @ 100 mls/hr Q8HR IV 06/19/25 22:00 06/21/25 15:18 100 MLS/HR Enoxaparin Sodium 100 mg Q12HR SC 06/20/25 22:00 06/21/25 09:22 100 MG Guaifenesin/ Dextromethorphan 10 ml Q6HPRN PRN PO 06/20/25 20:15 06/20/25 21:35 10 ML Examination: GENERAL:Normal, CVS:Normal, :Abnormal laboratory and microbiology Laboratory Tests 06/21/25 13:54 06/21/25 04:27 Test 06/21/25 04:27 Range/Units Serum Glucose 126 H 74-106 mg/dL Microbiology Date/Time Source Procedure Growth Status 06/19/25 07:50 Nose MRSA Screen - Final Complete 06/18/25 15:43 Voided Urine Urine Culture - Final Complete 06/18/25 08:35 Blood Blood Culture - Preliminary NO GROWTH AFTER 72 HOURS OF INCUBATION. Resulted Problem List/Assessment/Plan Problem List/Assessment/Plan Acute kidney injury superimposed Chronic Kidney Disease secondary hemodynamic mediated Left hydroureteronephrosis Obstructive uropathy Severe anemia rule out blood loss Hyperglycemia pancreatic cancer, history of Whipple procedure 2023 Hepatic metastasis Sepsis Hypoalbuminemia potassium replacement today po Renal function is improving with the current medical therapy, cr wnl Continue with IV fluid hydration Avoid hypotension Urology recommends percutaneous nephrostomy tube currently tentatively scheduled Monitoring urinary output via Bennett Antibiotics ordered broad-spectrum Avoid contrast at this time Plan discussed with: Patient Dietary Evaluation Review Recommendations by RD: Protein Supplementation Comments: 1) Add cardiac restriction to diet 2) Initiate MVI @ 1 tb qd 3) Initiate vitamin C @ 500 mg bid and zinc sulfate @ 220 mg qd for 7 days 4) Initiate Ensure High Protein qd 5) Refer to outpatient RD for weight management 6) Follow-up with oncology and cardiology 7) Continue to monitor I&O, labs, and skin integrity Expected Outcomes/Goals: 1) appetite and labs to improve 2) wound to improve 3) gradual wt loss 4) f/u in 3-5 days CC Plasma Assessment Blood Product Administration S: [id number] FLAVIA PEREZ MD Jun 21, 2025 15:51
[2025-06-21] MEDS: POTASSIUM CHL 20 Meq TABLET PO ONE (17:40)
[2025-06-22] VITALS (9 sets, daily range): BP systolic 99–120; BP diastolic 54–78; PULSE 70–114; RESP 17–22; TEMP 97.5–100.7; O2SAT 95–98
[2025-06-22 05:59] LABS: Hematocrit 27.9 % (36.0-46.0); Hemoglobin 9.2 g/dL (12.2-16.2); Mean Corpuscular Hemoglobin 29.7 pg (28.0-32.0); Mean Corpuscular Volume 90.8 fL (80.0-100.0); Nucleated Red Blood Cells % 0.0 %
[2025-06-22 06:11] LABS: Alanine Aminotransferase 14 U/L (7-40); Anion Gap 9 (5-15); BUN/Creatinine Ratio 13.3 (10.0-20.0); Blood Urea Nitrogen 11 mg/dL (9-23); Carbon Dioxide 21 mmol/L (20-31); Glucose 87 mg/dL (74-106); Potassium 4.1 mmol/L (3.5-5.1); Sodium 138 mmol/L (136-145)
[2025-06-22 06:14] LABS: Albumin 2.6 g/dL (3.2-4.8); Alkaline Phosphatase 302 U/L (46-116); Calcium 7.7 mg/dL (8.7-10.4); Chloride 108 mmol/L (98-107); Total Protein 5.4 g/dL (5.7-8.2)
[2025-06-22 06:29] LABS: Bilirubin, Total 0.6 mg/dL (0.2-1.0)
--- NOTE | 2025-06-22 09:12 | DVHPN2 ---
Progress Note Date Seen: Jun 22, 2025 Medical Necessity Reason Pt with a Central, PICC or Fol: Yes The following are medically ne: Bennett Catheter Objective vital signs Vital Sign Date Time Temp Pulse Resp B/P (MAP) Pulse Ox O2 Delivery O2 Flow Rate FiO2 06/22/25 05:00 99.4 73 17 115/54 (74) 97 99.4 06/21/25 20:00 Room Air* 0 21 Total Intake and Output 06/21/25 06/21/25 06/22/25 15:00 23:00 07:00 Intake Total 1050 ml 100 ml Output Total 1250 ml Balance -200 ml 100 ml medications Current Medications Medications Dose Ordered Sig/Anni Route Start Time Stop Time Status Last Admin Dose Admin Metronidazole 100 ml @ 100 mls/hr Q8HR IV 06/18/25 14:00 06/22/25 06:23 100 MLS/HR Nitroglycerin 0.4 mg Q5MINP PRN SL 06/18/25 13:00 Morphine Sulfate 2 mg Q30M PRN IV 06/18/25 13:00 Diagnostic Test (Pha) 1 strip ACHS 06/18/25 17:00 06/22/25 05:54 1 STRIP Insulin Human Regular ACHS SC 06/18/25 17:00 06/21/25 18:46 2 UNITS Dextrose 50 ml UD PRN IV 06/18/25 13:15 Oxycodone HCl 5 mg Q6HP PRN PO 06/19/25 11:00 06/22/25 04:14 5 MG Hydromorphone HCl 0.25 mg Q4HPRN PRN IV 06/19/25 11:00 06/21/25 20:30 0.25 MG Acetaminophen 500 mg Q8HP PRN PO 06/19/25 11:00 Ondansetron HCl 4 mg Q6HP PRN IV 06/19/25 11:00 Pantoprazole Sodium 40 mg DAILY IV 06/20/25 10:00 06/21/25 09:22 40 MG Sodium Chloride 1,000 ml @ 100 mls/hr Q10H IV 06/19/25 15:00 06/22/25 06:30 100 MLS/HR Sennosides 17.2 mg QHSP PRN PO 06/19/25 15:00 Gabapentin 300 mg BID PO 06/19/25 22:00 06/21/25 21:08 300 MG Clindamycin Phosphate 50 ml @ 100 mls/hr Q8HR IV 06/19/25 22:00 06/22/25 05:49 100 MLS/HR Enoxaparin Sodium 100 mg Q12HR SC 06/20/25 22:00 06/21/25 21:06 100 MG Guaifenesin/ Dextromethorphan 10 ml Q6HPRN PRN PO 06/20/25 20:15 06/20/25 21:35 10 ML laboratory and microbiology Laboratory Tests 06/22/25 04:20 Test 06/22/25 04:20 Range/Units Serum Glucose 87 74-106 mg/dL Microbiology Date/Time Source Procedure Growth Status 06/19/25 07:50 Nose MRSA Screen - Final Complete 06/18/25 15:43 Voided Urine Urine Culture - Final Complete 06/18/25 08:35 Blood Blood Culture - Preliminary NO GROWTH AFTER 72 HOURS OF INCUBATION. Resulted Problem List/Assessment/Plan Problem List/Assessment/Plan Acute kidney injury superimposed Chronic Kidney Disease secondary hemodynamic mediated Left hydroureteronephrosis Obstructive uropathy Severe anemia rule out blood loss Hyperglycemia pancreatic cancer, history of Whipple procedure 2023 Hepatic metastasis Sepsis Hypoalbuminemia Renal function is improving with the current medical therapy, cr wnl Continue with IV fluid hydration Avoid hypotension Urology recommends percutaneous nephrostomy tube currently tentatively scheduled Monitoring urinary output via Bennett Antibiotics ordered broad-spectrum Avoid contrast at this time Plan discussed with: Patient Dietary Evaluation Review Recommendations by RD: Protein Supplementation Comments: 1) Add cardiac restriction to diet 2) Initiate MVI @ 1 tb qd 3) Initiate vitamin C @ 500 mg bid and zinc sulfate @ 220 mg qd for 7 days 4) Initiate Ensure High Protein qd 5) Refer to outpatient RD for weight management 6) Follow-up with oncology and cardiology 7) Continue to monitor I&O, labs, and skin integrity Expected Outcomes/Goals: 1) appetite and labs to improve 2) wound to improve 3) gradual wt loss 4) f/u in 3-5 days CC Plasma Assessment Blood Product Administration S: [id number] FLAVIA PEREZ MD Jun 22, 2025 09:12
[2025-06-22] MEDS: ONDANSETRON HCL 4 MG/2 ML VIAL IV PRN (09:59)
[2025-06-22] MEDS: ACETAMINOPHEN 500 MG TAB or CAP PO PRN (11:26)
--- NOTE | 2025-06-22 13:43 | DVH ---
Bilateral lower extremity venous duplex Clinical History: rule out DVT Comparison: None Technique: Duplex Doppler evaluation of the deep venous systems of both lower extremities from the common femora l veins to the popliteal veins including color Doppler and spectral/pulsed waveform analysis was perf ormed. Findings: RIGHT SIDE: The common femoral vein demonstrates appropriate compressibility and waveform variability. There is compressibility/patency of the great saphenous vein at the proximal thigh. The femoral vein demonstrates appropriate compressibility and waveform variability. The deep femoral vein demonstrates appropriate compressibility and waveform variability. The popliteal vein demonstrates appropriate compressibility and waveform variability. There is normal compressibility at the tibioperoneal trunk. LEFT SIDE: The common femoral vein demonstrates appropriate compressibility and waveform variability. There is compressibility/patency of the great saphenous vein at the proximal thigh. The femoral vein demonstrates appropriate compressibility and waveform variability. The deep femoral vein demonstrates appropriate compressibility and waveform variability. The popliteal vein demonstrates appropriate compressibility and waveform variability. There is normal compressibility at the tibioperoneal trunk. Impression: 1. No right or left femoropopliteal venous thrombosis.
[2025-06-22] MEDS ORDERED: ENOXAPARIN SOD 100 MG/1 ML SYRINGE SC SCH (14:00)
--- NOTE | 2025-06-22 14:02 | DVHPN2 ---
Progress Note Date Seen: Jun 22, 2025 Medical Necessity Reason Pt with a Central, PICC or Fol: Yes The following are medically ne: Bennett Catheter Subjective Patient reports: No new complaints Objective vital signs Vital Sign Date Time Temp Pulse Resp B/P (MAP) Pulse Ox O2 Delivery O2 Flow Rate FiO2 06/22/25 11:26 100.7 06/22/25 09:58 79 20 118/60 06/22/25 09:00 98 06/21/25 20:00 Room Air* 0 21 Total Intake and Output 06/21/25 06/21/25 06/22/25 15:00 23:00 07:00 Intake Total 1050 ml 100 ml Output Total 1250 ml Balance -200 ml 100 ml medications Current Medications Medications Dose Ordered Sig/Anni Route Start Time Stop Time Status Last Admin Dose Admin Metronidazole 100 ml @ 100 mls/hr Q8HR IV 06/18/25 14:00 06/22/25 06:23 100 MLS/HR Nitroglycerin 0.4 mg Q5MINP PRN SL 06/18/25 13:00 Morphine Sulfate 2 mg Q30M PRN IV 06/18/25 13:00 Diagnostic Test (Pha) 1 strip ACHS 06/18/25 17:00 06/22/25 12:12 1 STRIP Insulin Human Regular ACHS SC 06/18/25 17:00 06/21/25 18:46 2 UNITS Dextrose 50 ml UD PRN IV 06/18/25 13:15 Oxycodone HCl 5 mg Q6HP PRN PO 06/19/25 11:00 06/22/25 13:18 5 MG Hydromorphone HCl 0.25 mg Q4HPRN PRN IV 06/19/25 11:00 06/22/25 09:58 0.25 MG Acetaminophen 500 mg Q8HP PRN PO 06/19/25 11:00 06/22/25 11:26 500 MG Ondansetron HCl 4 mg Q6HP PRN IV 06/19/25 11:00 06/22/25 09:59 4 MG Pantoprazole Sodium 40 mg DAILY IV 06/20/25 10:00 06/22/25 09:57 40 MG Sodium Chloride 1,000 ml @ 100 mls/hr Q10H IV 06/19/25 15:00 06/22/25 06:30 100 MLS/HR Sennosides 17.2 mg QHSP PRN PO 06/19/25 15:00 Gabapentin 300 mg BID PO 06/19/25 22:00 06/22/25 11:06 300 MG Clindamycin Phosphate 50 ml @ 100 mls/hr Q8HR IV 06/19/25 22:00 06/22/25 13:17 100 MLS/HR Enoxaparin Sodium 100 mg Q12HR SC 06/20/25 22:00 06/22/25 09:59 100 MG Guaifenesin/ Dextromethorphan 10 ml Q6HPRN PRN PO 06/20/25 20:15 06/20/25 21:35 10 ML Examination General Appearance: Alert, Oriented X3, Cooperative, morbid obese. mild distress HEENT: Atraumatic, PERRLA Lungs: Clear to auscultation, Normal air movement Cardiovascular: Normal S1, Normal S2 Abdomen: Normal bowel sounds, Soft, No tenderness, No hepatospenomegaly Genitourinary: No Apparent Abnormalities Musculoskeletal: no edema or cyanosis. + upper thigh pain Skin: Dry, Intact Psych/Mental Status: Mental status NL, Mood NL laboratory and microbiology Laboratory Tests 06/22/25 04:20 Test 06/22/25 04:20 Range/Units Serum Glucose 87 74-106 mg/dL Microbiology Date/Time Source Procedure Growth Status 06/19/25 07:50 Nose MRSA Screen - Final Complete 06/18/25 15:43 Voided Urine Urine Culture - Final Complete 06/18/25 08:35 Blood Blood Culture - Preliminary NO GROWTH AFTER 72 HOURS OF INCUBATION. Resulted Labs and/or images reviewed: Labs reviewed by me, Image(s) reviewed by me Problem List/Assessment/Plan Problem List/Assessment/Plan -sepsis -severe anemia, rule out GI bleed -pancreatic cancer, status post Whipple procedure from one year ago -septic shock -acute kidney injury, vasomotor nephropathy -obesity -primary hypertension -history of DVT -peripheral neuropathy Plan: Events: Patient had questionable reaction to Meropenem. Also noted to have penicillin allergy. Attempted to start Levaquin, with the patient's QTC greater than 500. Patient placed on clindamycin and Flagyl with improvement with the patient's white blood cell count. -CT scan of the abdomen and pelvis: Reveals left hydroureteronephrosis. Urology consultation was placed with recommendations for nephrostomy tube placement. Patient is currently on Eliquis, for which patient will have re-evaluation for nephrostomy tube placement this coming Monday. - renal ultrasound shows mild left hydro -IV hydration -PPI -stop Eliquis, transitioned to therapeutic dose Lovenox. hold after midnight for nephrostomy tube. - repeat US tomorrow AM for hydro - npo after midnight -maya cultures: No growth -continue current antimicrobial therapy with Flagyl and clindamycin -code status: DNI Total time spent with patient discussing and formulating plan of care: 35 minutes. Plan discussed with: Patient My Orders My Orders Orders - SONALI CORDERO MD Procedure Category Date Status Time Bilat Lower Dvt US 06/22/25 Resulted 11:48 Lumbar Spine 3 View XY 06/22/25 Logged 13:56 R Hip Complete Xray XY 06/22/25 Logged 13:56 L Hip Complete Xray XY 06/22/25 Logged 13:56 Enoxaparin Sodium PHA 06/22/25 Transmitted (Lovenox) 14:00 Dietary Evaluation Review Recommendations by RD: Protein Supplementation Comments: 1) Add cardiac restriction to diet 2) Initiate MVI @ 1 tb qd 3) Initiate vitamin C @ 500 mg bid and zinc sulfate @ 220 mg qd for 7 days 4) Initiate Ensure High Protein qd 5) Refer to outpatient RD for weight management 6) Follow-up with oncology and cardiology 7) Continue to monitor I&O, labs, and skin integrity Expected Outcomes/Goals: 1) appetite and labs to improve 2) wound to improve 3) gradual wt loss 4) f/u in 3-5 days Date of Service: Jun 22, 2025 Billing Provider: SONALI CORDERO MD Common Visit Codes: 90085-IUV/OBS SAME DATE (HIGH) CC Plasma Assessment Blood Product Administration S: [id number] SONALI CORDERO MD Jun 22, 2025 14:01
--- NOTE | 2025-06-22 14:58 | DVH ---
PROCEDURE: Left hip radiographs. INDICATION: leg pain TECHNIQUE: 2 views of the left hip were obtained. COMPARISON: None. FINDINGS: There is no evidence of fracture or dislocation. Joint spaces are maintained. The soft tis sues are unremarkable. IMPRESSION: 1. No fracture or dislocation.
--- NOTE | 2025-06-22 15:00 | DVH ---
PROCEDURE: Right hip radiographs. INDICATION: leg pain TECHNIQUE: Frontal view of the pelvis and frontal and lateral views of the right hip COMPARISON: None. FINDINGS: There is no evidence of fracture or dislocation. Joint spaces are maintained. Calcified ma sses in the pelvis consistent with fibroids. IMPRESSION: 1. No fracture or dislocation. 2. Fibroid uterus.
--- NOTE | 2025-06-22 15:02 | DVH ---
CLINICAL INFORMATION: 69 years old, Female; bilateral lower leg pain. TECHNIQUE: 3 views of the lumbar spine were obtained. COMPARISON: CT of the abdomen and pelvis dated 06/19/2025. FINDINGS: Mild grade 1 anterolisthesis of L4 on L5. Minimal retrolisthesis of L2 on L3. Chronic appea ring mild compression deformities are seen at the T11 and T12 vertebral bodies with minimal loss of h eight and associated endplate sclerosis. Mild chronic deformity at the superior endplate of L3. Poste rior elements are intact. No evidence of acute fracture. Moderate to severe disc space narrowing at L 4-L5 and L5-S1 with associated endplate sclerosis and endplate spurring. Moderate disc space narrowin g at T11-T12 and T12-L1 with associated endplate sclerosis and endplate spurring. Multilevel moderate facet hypertrophy. Paraspinal soft tissues are grossly unremarkable. There are prominent calcificati ons in the pelvis associated with uterine fibroids. IMPRESSION: 1. Mild spondylolisthesis of L2 on L3 and L4 on L5. 2. Chronic appearing mild compression deformities at T11 and T12 and chronic appearing mild deformity at the superior endplate of L3. No findings are seen to suggest acute fracture. 3. Degenerative disc disease and facet disease as described above. 4. Prominent calcifications in the pelvis associated with uterine fibroids.
[2025-06-22] MEDS: ENOXAPARIN SOD 100 MG/1 ML SYRINGE SC SCH (21:32)
[2025-06-23] VITALS (8 sets, daily range): BP systolic 109–125; BP diastolic 63–75; PULSE 70–106; RESP 17–20; TEMP 96.7–98.2; O2SAT 96–97
[2025-06-23 07:34] LABS: Hematocrit 29.1 % (36.0-46.0); Hemoglobin 9.6 g/dL (12.2-16.2); Mean Corpuscular Hemoglobin 30.1 pg (28.0-32.0); Mean Corpuscular Volume 91.4 fL (80.0-100.0); Nucleated Red Blood Cells % 0.0 %
--- NOTE | 2025-06-23 09:03 | DVH ---
INDICATION: assess for hydronephrophis TECHNIQUE: Multiple real-time sonographic images of the kidneys and bladder were obtained. COMPARISON: US KIDNEY on DOS: 06/21/25, US BLADDER on DOS: 06/19/25, CT CT AB PEL WO CON-NO ORAL OR IV on DOS: 06/19/25 FINDINGS: The right kidney measures 10 cm in length, which is normal in size. There is normal echogen icity of the right kidney. No hydronephrosis. The left kidney measures 10 cm in length, which is normal in size. There is normal echogenicity of th e left kidney. No hydronephrosis. No large intraluminal masses are seen in the bladder. IMPRESSION: 1. Normal sonographic appearance of the kidneys. No hydronephrosis.
--- NOTE | 2025-06-23 10:22 | DVHPN2 ---
Subjective Patient denies any symptoms at this time Reviewed: Care Plan, H&P, Labs, Medications Changes from previous H/P or p: No Changes General: Per HPI Objective Vitals Vital Signs Date Time Temp Pulse Resp B/P (MAP) Pulse Ox O2 Delivery O2 Flow Rate FiO2 06/23/25 09:00 98.1 76 18 120/67 (84) 97 98.1 06/23/25 08:00 Room Air* 0 21 Intake/Output Intake and Output 06/23/25 07:00 Intake Total 1820 ml Output Total 500 ml Balance 1320 ml Intake Oral 520 ml IV Total 1300 ml Output Urine Total 500 ml # Bowel Movements 1 General Appearance: Alert, Oriented X3, Cooperative, mild distress HEENT: Atraumatic, PERRLA Lungs: Clear to auscultation, Normal air movement Cardiovascular: Normal S1, Normal S2 Abdomen: Normal bowel sounds, Soft, No tenderness, No hepatospenomegaly Genitourinary: No Apparent Abnormalities Musculoskeletal: Normal sensory function, Normal motor function Skin: Dry, Intact Psych/Mental Status: Mental status NL, Mood NL Medications Current Medications Medications Dose Ordered Sig/Anni Route Start Time Stop Time Status Last Admin Dose Admin Metronidazole 100 ml @ 100 mls/hr Q8HR IV 06/18/25 14:00 06/23/25 06:15 100 MLS/HR Nitroglycerin 0.4 mg Q5MINP PRN SL 06/18/25 13:00 Morphine Sulfate 2 mg Q30M PRN IV 06/18/25 13:00 Diagnostic Test (Pha) 1 strip ACHS 06/18/25 17:00 06/23/25 05:41 1 STRIP Insulin Human Regular ACHS SC 06/18/25 17:00 06/22/25 21:40 3 UNITS Dextrose 50 ml UD PRN IV 06/18/25 13:15 Oxycodone HCl 5 mg Q6HP PRN PO 06/19/25 11:00 06/22/25 21:27 5 MG Hydromorphone HCl 0.25 mg Q4HPRN PRN IV 06/19/25 11:00 06/23/25 05:29 0.25 MG Acetaminophen 500 mg Q8HP PRN PO 06/19/25 11:00 06/22/25 11:26 500 MG Ondansetron HCl 4 mg Q6HP PRN IV 06/19/25 11:00 06/23/25 05:28 4 MG Pantoprazole Sodium 40 mg DAILY IV 06/20/25 10:00 06/22/25 09:57 40 MG Sodium Chloride 1,000 ml @ 100 mls/hr Q10H IV 06/19/25 15:00 06/22/25 06:30 100 MLS/HR Sennosides 17.2 mg QHSP PRN PO 06/19/25 15:00 Gabapentin 300 mg BID PO 06/19/25 22:00 06/22/25 21:27 300 MG Clindamycin Phosphate 50 ml @ 100 mls/hr Q8HR IV 06/19/25 22:00 06/23/25 05:30 100 MLS/HR Guaifenesin/ Dextromethorphan 10 ml Q6HPRN PRN PO 06/20/25 20:15 06/20/25 21:35 10 ML Enoxaparin Sodium 100 mg Q12HR SC 06/22/25 22:00 06/22/25 21:32 100 MG Laboratory Results Laboratory Tests 06/22/25 04:20 06/23/25 04:53 Urinalysis Test 06/18/25 15:43 Urine Color Yellow (Yellow) Urine Clarity Turbid (Clear) H Urine pH 5.5 (5.0-9.0) Urine Specific [place] 1.015 (1.001-1.035) Urine Protein 1+ (Negative) H Urine Ketones Negative (Negative) Urine Blood Negative /uL (Negative) Urine Nitrite Negative (Negative) Urine Bilirubin Negative (Negative) Urine Urobilinogen 2 mg/dL (Negative) H Urine Leukocyte Esterase Negative /uL (Negative) Urine RBC 5 /hpf (0 - 4) Urine Microscopic WBC 17 /HPF (0-5) H Urine Squamous Epithelial Cells Few /hpf (<5) Urine Bacteria None seen /hpf (None Seen) Urine Hyaline Casts Mod /lpf (0 - 2) Urine Mucus Few (None Seen) Urine Glucose Normal mg/dL (Normal) Microbiology Microbiology Date/Time Source Procedure Growth Status 06/19/25 07:50 Nose MRSA Screen - Final Complete 06/18/25 15:43 Voided Urine Urine Culture - Final Complete 06/18/25 08:35 Blood Blood Culture - Final NO GROWTH AFTER 5 DAYS OF INCUBATION. Complete Labs and/or images reviewed: Labs reviewed by me, Image(s) reviewed by me Assessment/Plan Assessment/Plan Impression: -sepsis -severe anemia, rule out GI bleed -pancreatic cancer, status post Whipple procedure from one year ago -septic shock -acute kidney injury, vasomotor nephropathy -obesity -primary hypertension -history of DVT -peripheral neuropathy Plan: Events: Renal function markedly improved. Repeat ultrasound of the kidney showed no hydronephrosis. -physical therapy -restart Eliquis -decrease normal saline to 60 mL/hour -PPI -maya cultures: No growth -continue current antimicrobial therapy with Flagyl and clindamycin -code status: DNI -discussed plan of care with the patient. Start PT. Possible DC tomorrow Total time spent with patient discussing and formulating plan of care: 35 minutes. This medical document was created using an electronic medical record system with [employer] dictation system. Although this document has been carefully reviewed, there may still be some phonetic and typographical errors. These areas are purely typographical due to imperfections of the software programs, and do not reflect any compromise in the patient's medical care. Plan discussed with: Patient, Other (RN) My Orders Orders - ALTHEA KINGSTON NP Procedure Category Date Status Time NS PHA 06/23/25 Transmitted 10:15 Pt Request For Service PT 06/23/25 Transmitted 10:14 Regular Diet DIET 06/23/25 Transmitted Lunch Florastor (S. PHA 06/24/25 Transmitted Boulardii) (Florastor) 10:00 Date of Service: Jun 23, 2025 Billing Provider: ALTHEA KINGSTON NP Common Visit Codes: [id number] INP/OBS CARE(HIGH) ALTHEA KINGSTON NP Jun 23, 2025 10:22
--- NOTE | 2025-06-23 10:36 | DVHPN2 ---
Progress Note Date Seen: Jun 23, 2025 Medical Necessity Reason Pt with a Central, PICC or Fol: Yes The following are medically ne: Bennett Catheter Subjective Patient reports: No new complaints Other Systems: Patient seen and examined by myself today in follow-up Objective vital signs Vital Sign Date Time Temp Pulse Resp B/P (MAP) Pulse Ox O2 Delivery O2 Flow Rate FiO2 06/23/25 09:00 98.1 76 18 120/67 (84) 97 98.1 06/23/25 08:00 Room Air* 0 21 Total Intake and Output 06/22/25 06/22/25 06/23/25 15:00 23:00 07:00 Intake Total 1000 ml 720 ml 100 ml Output Total 500 ml Balance 1000 ml 220 ml 100 ml medications Current Medications Medications Dose Ordered Sig/Anni Route Start Time Stop Time Status Last Admin Dose Admin Metronidazole 100 ml @ 100 mls/hr Q8HR IV 06/18/25 14:00 06/23/25 06:15 100 MLS/HR Nitroglycerin 0.4 mg Q5MINP PRN SL 06/18/25 13:00 Morphine Sulfate 2 mg Q30M PRN IV 06/18/25 13:00 Diagnostic Test (Pha) 1 strip ACHS 06/18/25 17:00 06/23/25 05:41 1 STRIP Insulin Human Regular ACHS SC 06/18/25 17:00 06/22/25 21:40 3 UNITS Dextrose 50 ml UD PRN IV 06/18/25 13:15 Oxycodone HCl 5 mg Q6HP PRN PO 06/19/25 11:00 06/22/25 21:27 5 MG Hydromorphone HCl 0.25 mg Q4HPRN PRN IV 06/19/25 11:00 06/23/25 05:29 0.25 MG Acetaminophen 500 mg Q8HP PRN PO 06/19/25 11:00 06/22/25 11:26 500 MG Ondansetron HCl 4 mg Q6HP PRN IV 06/19/25 11:00 06/23/25 05:28 4 MG Pantoprazole Sodium 40 mg DAILY IV 06/20/25 10:00 06/22/25 09:57 40 MG Sennosides 17.2 mg QHSP PRN PO 06/19/25 15:00 Gabapentin 300 mg BID PO 06/19/25 22:00 06/22/25 21:27 300 MG Clindamycin Phosphate 50 ml @ 100 mls/hr Q8HR IV 06/19/25 22:00 06/23/25 05:30 100 MLS/HR Guaifenesin/ Dextromethorphan 10 ml Q6HPRN PRN PO 06/20/25 20:15 06/20/25 21:35 10 ML Sodium Chloride 1,000 ml @ 60 mls/hr [id number] IV 06/23/25 10:15 UNV Saccharomyces Boulardii 250 mg DAILY PO 06/24/25 10:00 UNV Apixaban 5 mg BID PO 06/23/25 22:00 UNV Examination: LUNGS:Normal, CVS:Normal, MSK:Normal laboratory and microbiology Laboratory Tests 06/23/25 04:53 06/22/25 04:20 Test 06/22/25 04:20 Range/Units Serum Glucose 87 74-106 mg/dL Microbiology Date/Time Source Procedure Growth Status 06/19/25 07:50 Nose MRSA Screen - Final Complete 06/18/25 15:43 Voided Urine Urine Culture - Final Complete 06/18/25 08:35 Blood Blood Culture - Final NO GROWTH AFTER 5 DAYS OF INCUBATION. Complete Problem List/Assessment/Plan Problem List/Assessment/Plan Acute kidney injury superimposed Chronic Kidney Disease secondary hemodynamic mediated Left hydroureteronephrosis Obstructive uropathy Severe anemia requiring packed red blood cell transfusion Hyperglycemia pancreatic cancer, history of Whipple procedure 2023 Hepatic metastasis Sepsis Hypoalbuminemia Recommendation Kidney function is improving Increased urine output Strict I&Os Packed red blood cell transfusion p.r.n. Insulin sliding scale Urology in followed We will continue to follow up Plan discussed with: Patient Dietary Evaluation Review Recommendations by RD: Protein Supplementation Comments: 1) Add cardiac restriction to diet 2) Initiate MVI @ 1 tb qd 3) Initiate vitamin C @ 500 mg bid and zinc sulfate @ 220 mg qd for 7 days 4) Initiate Ensure High Protein qd 5) Refer to outpatient RD for weight management 6) Follow-up with oncology and cardiology 7) Continue to monitor I&O, labs, and skin integrity Expected Outcomes/Goals: 1) appetite and labs to improve 2) wound to improve 3) gradual wt loss 4) f/u in 3-5 days CC Plasma Assessment Blood Product Administration S: [id number] AKILA PASTRANA MD Jun 23, 2025 10:36
[2025-06-23] MEDS: SODIUM CHLORIDE 0.9% 1,000 ML IV SCH (14:05)
[2025-06-23] MEDS: APIXABAN 5 MG TAB PO SCH (21:11)
[2025-06-24] VITALS (36 sets, daily range): BP systolic 78–153; BP diastolic 36–80; PULSE 66–146; RESP 14–22; TEMP 97.4–102.2; O2SAT 93–98
[2025-06-24] MEDS: FLORASTOR (S. BOULARDII) 250 MG CAP PO SCH (09:14)
--- NOTE | 2025-06-24 10:17 | DVHPN2 ---
Progress Note Date Seen: Jun 24, 2025 Medical Necessity Reason Pt with a Central, PICC or Fol: Yes The following are medically ne: Bennett Catheter Subjective Patient reports: No new complaints Other Systems: Patient seen and examined by myself today in follow-up Objective vital signs Vital Sign Date Time Temp Pulse Resp B/P (MAP) Pulse Ox O2 Delivery O2 Flow Rate FiO2 06/24/25 09:13 85 18 132/77 06/24/25 08:42 98.5 97 98.5 06/24/25 08:00 Room Air* 0 21 Total Intake and Output 06/23/25 06/23/25 06/24/25 15:00 23:00 07:00 Intake Total 100 ml 1100 ml Balance 100 ml 1100 ml medications Current Medications Medications Dose Ordered Sig/Anni Route Start Time Stop Time Status Last Admin Dose Admin Metronidazole 100 ml @ 100 mls/hr Q8HR IV 06/18/25 14:00 06/24/25 05:51 100 MLS/HR Nitroglycerin 0.4 mg Q5MINP PRN SL 06/18/25 13:00 Morphine Sulfate 2 mg Q30M PRN IV 06/18/25 13:00 Diagnostic Test (Pha) 1 strip ACHS 06/18/25 17:00 06/24/25 05:57 1 STRIP Insulin Human Regular ACHS SC 06/18/25 17:00 06/22/25 21:40 3 UNITS Dextrose 50 ml UD PRN IV 06/18/25 13:15 Oxycodone HCl 5 mg Q6HP PRN PO 06/19/25 11:00 06/22/25 21:27 5 MG Hydromorphone HCl 0.25 mg Q4HPRN PRN IV 06/19/25 11:00 06/24/25 09:13 0.25 MG Acetaminophen 500 mg Q8HP PRN PO 06/19/25 11:00 06/22/25 11:26 500 MG Ondansetron HCl 4 mg Q6HP PRN IV 06/19/25 11:00 06/24/25 09:11 4 MG Pantoprazole Sodium 40 mg DAILY IV 06/20/25 10:00 06/24/25 09:14 40 MG Sennosides 17.2 mg QHSP PRN PO 06/19/25 15:00 Gabapentin 300 mg BID PO 06/19/25 22:00 06/23/25 21:11 300 MG Clindamycin Phosphate 50 ml @ 100 mls/hr Q8HR IV 06/19/25 22:00 06/24/25 05:51 100 MLS/HR Guaifenesin/ Dextromethorphan 10 ml Q6HPRN PRN PO 06/20/25 20:15 06/20/25 21:35 10 ML Sodium Chloride 1,000 ml @ 60 mls/hr [id number] IV 06/23/25 10:15 06/23/25 14:05 60 MLS/HR Saccharomyces Boulardii 250 mg DAILY PO 06/24/25 10:00 Apixaban 5 mg BID PO 06/23/25 22:00 06/23/25 21:11 5 MG Metoclopramide HCl 10 mg Q8HPRN PRN IV 06/24/25 10:15 UNV Examination: LUNGS:Normal, CVS:Normal, MSK:Normal laboratory and microbiology Laboratory Tests 06/23/25 04:53 06/22/25 04:20 Test 06/22/25 04:20 Range/Units Serum Glucose 87 74-106 mg/dL Microbiology Date/Time Source Procedure Growth Status 06/19/25 07:50 Nose MRSA Screen - Final Complete 06/18/25 15:43 Voided Urine Urine Culture - Final Complete 06/18/25 08:35 Blood Blood Culture - Final NO GROWTH AFTER 5 DAYS OF INCUBATION. Complete Problem List/Assessment/Plan Problem List/Assessment/Plan Acute kidney injury superimposed Chronic Kidney Disease secondary hemodynamic mediated Left hydroureteronephrosis Obstructive uropathy Severe anemia requiring packed red blood cell transfusion Hyperglycemia pancreatic cancer, history of Whipple procedure 2023 Hepatic metastasis Sepsis Hypoalbuminemia Recommendation Kidney function is improving Increased urine output Strict I&Os Packed red blood cell transfusion p.r.n. Insulin sliding scale Urology in following We will continue to follow up Plan discussed with: Patient Dietary Evaluation Review Recommendations by RD: Protein Supplementation Comments: 1) Add cardiac restriction to diet 2) Initiate MVI @ 1 tb qd 3) Initiate vitamin C @ 500 mg bid and zinc sulfate @ 220 mg qd for 7 days 4) Initiate Ensure High Protein qd 5) Refer to outpatient RD for weight management 6) Follow-up with oncology and cardiology 7) Continue to monitor I&O, labs, and skin integrity Expected Outcomes/Goals: 1) appetite and labs to improve 2) wound to improve 3) gradual wt loss 4) f/u in 3-5 days CC Plasma Assessment Blood Product Administration S: [id number] AKILA PASTRANA MD Jun 24, 2025 10:17
--- NOTE | 2025-06-24 10:22 | DVHPN2 ---
Subjective Complaining of nausea Reviewed: Care Plan, H&P, Labs, Medications Changes from previous H/P or p: Changes General: Per HPI Objective Vitals Vital Signs Date Time Temp Pulse Resp B/P (MAP) Pulse Ox O2 Delivery O2 Flow Rate FiO2 06/24/25 09:13 85 18 132/77 06/24/25 08:42 98.5 97 98.5 06/24/25 08:00 Room Air* 0 21 Intake/Output Intake and Output 06/24/25 07:00 Intake Total 1200 ml Balance 1200 ml Intake Oral 1100 ml IV Total 100 ml # Voids 1 General Appearance: Alert, Oriented X3, Cooperative, mild distress HEENT: Atraumatic, PERRLA Lungs: Clear to auscultation, Normal air movement Cardiovascular: Normal S1, Normal S2 Abdomen: Normal bowel sounds, Soft, No tenderness, No hepatospenomegaly Genitourinary: No Apparent Abnormalities Musculoskeletal: Normal sensory function, Normal motor function Skin: Dry, Intact Psych/Mental Status: Mental status NL, Mood NL Medications Current Medications Medications Dose Ordered Sig/Anni Route Start Time Stop Time Status Last Admin Dose Admin Metronidazole 100 ml @ 100 mls/hr Q8HR IV 06/18/25 14:00 06/24/25 05:51 100 MLS/HR Nitroglycerin 0.4 mg Q5MINP PRN SL 06/18/25 13:00 Morphine Sulfate 2 mg Q30M PRN IV 06/18/25 13:00 Diagnostic Test (Pha) 1 strip ACHS 06/18/25 17:00 06/24/25 05:57 1 STRIP Insulin Human Regular ACHS SC 06/18/25 17:00 06/22/25 21:40 3 UNITS Dextrose 50 ml UD PRN IV 06/18/25 13:15 Oxycodone HCl 5 mg Q6HP PRN PO 06/19/25 11:00 06/22/25 21:27 5 MG Hydromorphone HCl 0.25 mg Q4HPRN PRN IV 06/19/25 11:00 06/24/25 09:13 0.25 MG Acetaminophen 500 mg Q8HP PRN PO 06/19/25 11:00 06/22/25 11:26 500 MG Ondansetron HCl 4 mg Q6HP PRN IV 06/19/25 11:00 06/24/25 09:11 4 MG Pantoprazole Sodium 40 mg DAILY IV 06/20/25 10:00 06/24/25 09:14 40 MG Sennosides 17.2 mg QHSP PRN PO 06/19/25 15:00 Gabapentin 300 mg BID PO 06/19/25 22:00 06/23/25 21:11 300 MG Clindamycin Phosphate 50 ml @ 100 mls/hr Q8HR IV 06/19/25 22:00 06/24/25 05:51 100 MLS/HR Guaifenesin/ Dextromethorphan 10 ml Q6HPRN PRN PO 06/20/25 20:15 06/20/25 21:35 10 ML Sodium Chloride 1,000 ml @ 60 mls/hr [id number] IV 06/23/25 10:15 06/23/25 14:05 60 MLS/HR Saccharomyces Boulardii 250 mg DAILY PO 06/24/25 10:00 Apixaban 5 mg BID PO 06/23/25 22:00 06/23/25 21:11 5 MG Laboratory Results Laboratory Tests 06/22/25 04:20 06/23/25 04:53 Urinalysis Test 06/18/25 15:43 Urine Color Yellow (Yellow) Urine Clarity Turbid (Clear) H Urine pH 5.5 (5.0-9.0) Urine Specific [place] 1.015 (1.001-1.035) Urine Protein 1+ (Negative) H Urine Ketones Negative (Negative) Urine Blood Negative /uL (Negative) Urine Nitrite Negative (Negative) Urine Bilirubin Negative (Negative) Urine Urobilinogen 2 mg/dL (Negative) H Urine Leukocyte Esterase Negative /uL (Negative) Urine RBC 5 /hpf (0 - 4) Urine Microscopic WBC 17 /HPF (0-5) H Urine Squamous Epithelial Cells Few /hpf (<5) Urine Bacteria None seen /hpf (None Seen) Urine Hyaline Casts Mod /lpf (0 - 2) Urine Mucus Few (None Seen) Urine Glucose Normal mg/dL (Normal) Microbiology Microbiology Date/Time Source Procedure Growth Status 06/19/25 07:50 Nose MRSA Screen - Final Complete 06/18/25 15:43 Voided Urine Urine Culture - Final Complete 06/18/25 08:35 Blood Blood Culture - Final NO GROWTH AFTER 5 DAYS OF INCUBATION. Complete Labs and/or images reviewed: Labs reviewed by me, Image(s) reviewed by me Assessment/Plan Assessment/Plan Impression: -sepsis -severe anemia, rule out GI bleed -pancreatic cancer, status post Whipple procedure from one year ago -septic shock -acute kidney injury, vasomotor nephropathy -obesity -primary hypertension -history of DVT -peripheral neuropathy Plan: Events: Now complaining of Nausea. Temp 100.5. Ambulating with PT. -physical therapy -restart Eliquis -decrease normal saline to 60 mL/hour -PPI -maya cultures: No growth -continue current antimicrobial therapy with Flagyl and clindamycin -code status: DNI -Repeat labs, cxr. Hold DC today. Total time spent with patient discussing and formulating plan of care: 35 minutes. This medical document was created using an electronic medical record system with [employer] system. Although this document has been carefully reviewed, there may still be some phonetic and typographical errors. These areas are purely typographical due to imperfections of the software programs, and do not reflect any compromise in the patient's medical care. Plan discussed with: Patient, Other (RN) My Orders Orders - ALTHEA KINGSTON NP Procedure Category Date Status Time Sodium Chloride 0.9% PHA 06/23/25 In Process 10:15 Pt Request For Service PT 06/23/25 Logged 10:14 Regular Diet DIET 06/23/25 Transmitted Lunch Florastor (S. PHA 06/24/25 In Process Boulardii) (Florastor) 10:00 Apixaban (Eliquis) PHA 06/23/25 In Process 22:00 Basic Metabolic Panel LAB 06/24/25 Verified 10:05 Magnesium LAB 06/24/25 Verified 10:05 Complete Blood Count LAB 06/24/25 Verified 10:05 Chest Xray 1 View XY 06/24/25 Verified 10:05 Metoclopramide PHA 06/24/25 Verified Injection (Reglan 10:15 Date of Service: Jun 24, 2025 Billing Provider: ALTHEA KINGSTON NP Common Visit Codes: [id number] INP/OBS CARE(HIGH) ALTHEA KINGSTON NP Jun 24, 2025 10:22
[2025-06-24] MEDS: METOCLOPRAMIDE HCL 5MG/ml INJ 2ml VIAL IV PRN (10:44)
[2025-06-24 10:51] LABS: Hematocrit 35.6 % (36.0-46.0); Hemoglobin 11.7 g/dL (12.2-16.2); Mean Corpuscular Hemoglobin 29.9 pg (28.0-32.0); Mean Corpuscular Volume 91.3 fL (80.0-100.0)
[2025-06-24 10:58] LABS: Chloride 107 mmol/L (98-107); Potassium 3.9 mmol/L (3.5-5.1); Sodium 140 mmol/L (136-145)
[2025-06-24 10:59] LABS: Anion Gap 13 (5-15); Calcium 8.3 mg/dL (8.7-10.4); Carbon Dioxide 20 mmol/L (20-31)
[2025-06-24 11:04] LABS: BUN/Creatinine Ratio 8.0 (10.0-20.0)
[2025-06-24 11:05] LABS: Blood Urea Nitrogen 7 mg/dL (9-23); Glucose 114 mg/dL (74-106); Magnesium 1.2 mg/dL (1.6-2.6)
[2025-06-24 11:53] LABS: Anisocytosis Slight; Total Cells Counted 100.0 (100)
--- NOTE | 2025-06-24 11:58 | DVH ---
CHEST RADIOGRAPH Indication: pna Technique: Single frontal view of the chest was obtained Comparison: XY CHEST PORTABLE on DOS: 06/18/25 FINDINGS: Lines and Tubes: Right-sided Port-A-Cath in place with the tip not significantly changed from 06/18/2025. Lungs: No focal consolidation. Pleura: No effusion. No pneumothorax. Cardiomediastinal contours: Unremarkable Bones: No acute osseous abnormality. IMPRESSION: 1. No acute cardiopulmonary disease. 2. No significant change from 05/10/2025
[2025-06-24] MEDS: ACETAMINOPHEN IV 1000 MG/100ML (10MG/ML) IV PRN (12:00)
[2025-06-24] MEDS: METOPROLOL TARTRATE 1MG/1ML-5ML VIAL IV ONE ×4 (12:08→12:39)
[2025-06-24] MEDS ORDERED: METOPROLOL TARTRATE 1MG/1ML-5ML VIAL IV ONE ×2 (12:15→12:45)
[2025-06-24] MEDS: AMIODARONE BOLUS KIT 100 ML IV ONE (12:30)
[2025-06-24] MEDS ORDERED: VANCOMYCIN PER PHARMACY 0 MG IV SCH (12:30)
[2025-06-24] MEDS: SODIUM CHLORIDE 0.9% 500 ML IV ONE ×2 (12:30→22:12)
[2025-06-24] MEDS: MAGNESIUM SULFATE 1GM/100ML 100 ML IV SCH (12:45)
--- NOTE | 2025-06-24 13:07 | DVHPN2 ---
Date of Service: Jun 24, 2025 Billing Provider: ALTHEA KINGSTON NP Common Visit Codes: [id number] CARE 30-74 MIN ALTHEA KINGSTON NP Jun 24, 2025 13:07
[2025-06-24] MEDS: VANCOMYCIN 1GM/250ML KIT 250 ML IV SCH (15:23)
[2025-06-24] MEDS: VANCOMYCIN 1GM/250ML KIT 250 ML IV ONE (18:05)
[2025-06-25] VITALS (99 sets, daily range): BP systolic 80–140; BP diastolic 23–79; PULSE 65–115; RESP 12–28; TEMP 97.7–99.1; O2SAT 90–100
[2025-06-25 03:31] LABS: Hematocrit 26.0 % (36.0-46.0); Hemoglobin 8.5 g/dL (12.2-16.2); Mean Corpuscular Hemoglobin 29.6 pg (28.0-32.0); Mean Corpuscular Volume 90.6 fL (80.0-100.0); Nucleated Red Blood Cells % 0.1 %
[2025-06-25 03:46] LABS: Potassium 3.7 mmol/L (3.5-5.1); Sodium 139 mmol/L (136-145)
[2025-06-25 03:47] LABS: Anion Gap 11 (5-15); Carbon Dioxide 20 mmol/L (20-31)
[2025-06-25 03:52] LABS: Calcium 7.6 mg/dL (8.7-10.4); Chloride 108 mmol/L (98-107); Glucose 103 mg/dL (74-106)
[2025-06-25 03:53] LABS: BUN/Creatinine Ratio 10.6 (10.0-20.0)
[2025-06-25 03:56] LABS: Blood Urea Nitrogen 9 mg/dL (9-23); Magnesium 1.5 mg/dL (1.6-2.6)
[2025-06-25] MEDS: NOREPINEPHRINE 8 MG/250ML KIT 250 ML IV SCH (05:38)
[2025-06-25] MEDS: MAGNESIUM SULFATE 1GM/100ML 100 ML IV SCH (05:53)
--- NOTE | 2025-06-25 09:21 | DVHPN2 ---
Subjective Patient states that she feels better than yesterday. Reports that nausea has resolved. Reviewed: Care Plan, H&P, Labs, Medications Changes from previous H/P or p: No Changes General: Per HPI Objective Vitals Vital Signs Date Time Temp Pulse Resp B/P (MAP) Pulse Ox O2 Delivery O2 Flow Rate FiO2 06/25/25 08:00 81 21 98 Room Air* 0 21 06/25/25 06:45 06/25/25 04:00 98.1 98.1 Intake/Output Intake and Output 06/25/25 07:00 Intake Total 1650 ml Balance 1650 ml IV Total 1650 ml # Voids 1 # Bowel Movements 1 General Appearance: Alert, Oriented X3, Cooperative, mild distress HEENT: Atraumatic, PERRLA Lungs: Clear to auscultation, Normal air movement Cardiovascular: Normal S1, Normal S2, Other (Sinus rhythm) Abdomen: Normal bowel sounds, Soft, No tenderness, No hepatospenomegaly Genitourinary: No Apparent Abnormalities Musculoskeletal: Normal sensory function, Normal motor function Extremities: Normal pulses Neuro: Normal speech Skin: Dry, Intact Psych/Mental Status: Mental status NL, Mood NL Medications Current Medications Medications Dose Ordered Sig/Anni Route Start Time Stop Time Status Last Admin Dose Admin Metronidazole 100 ml @ 100 mls/hr Q8HR IV 06/18/25 14:00 06/25/25 08:12 100 MLS/HR Nitroglycerin 0.4 mg Q5MINP PRN SL 06/18/25 13:00 Morphine Sulfate 2 mg Q30M PRN IV 06/18/25 13:00 Diagnostic Test (Pha) 1 strip ACHS 06/18/25 17:00 06/25/25 06:46 1 STRIP Insulin Human Regular ACHS SC 06/18/25 17:00 06/24/25 21:26 3 UNITS Dextrose 50 ml UD PRN IV 06/18/25 13:15 Oxycodone HCl 5 mg Q6HP PRN PO 06/19/25 11:00 06/22/25 21:27 5 MG Hydromorphone HCl 0.25 mg Q4HPRN PRN IV 06/19/25 11:00 06/24/25 09:13 0.25 MG Acetaminophen 500 mg Q8HP PRN PO 06/19/25 11:00 06/22/25 11:26 500 MG Ondansetron HCl 4 mg Q6HP PRN IV 06/19/25 11:00 06/24/25 09:11 4 MG Pantoprazole Sodium 40 mg DAILY IV 06/20/25 10:00 06/24/25 09:14 40 MG Sennosides 17.2 mg QHSP PRN PO 06/19/25 15:00 Gabapentin 300 mg BID PO 06/19/25 22:00 06/24/25 21:22 300 MG Clindamycin Phosphate 50 ml @ 100 mls/hr Q8HR IV 06/19/25 22:00 06/24/25 22:13 100 MLS/HR Guaifenesin/ Dextromethorphan 10 ml Q6HPRN PRN PO 06/20/25 20:15 06/20/25 21:35 10 ML Saccharomyces Boulardii 250 mg DAILY PO 06/24/25 10:00 Apixaban 5 mg BID PO 06/23/25 22:00 06/24/25 21:22 5 MG Metoclopramide HCl 10 mg Q8HPRN PRN IV 06/24/25 10:15 06/24/25 10:44 10 MG Vancomycin HCl 0 ml @ 0 mls/hr PER PHARMACY IV 06/24/25 12:30 Norepinephrine Bitartrate 250 ml @ 3.75 mls/hr Q24H IV 06/25/25 04:30 06/25/25 05:38 3.75 MLS/HR Sodium Chloride 1,000 ml @ 100 mls/hr Q10H IV 06/25/25 09:00 Vancomycin HCl 350 ml @ 200 mls/hr Q12H IV 06/25/25 15:00 UNV Laboratory Results Laboratory Tests 06/25/25 02:14 Chemistry Test 06/24/25 10:38 06/25/25 02:14 Calcium Level 8.3 mg/dL (8.7-10.4) L 7.6 mg/dL (8.7-10.4) L Magnesium Level 1.2 mg/dL (1.6-2.6) L 1.5 mg/dL (1.6-2.6) L Urinalysis Test 06/18/25 15:43 Urine Color Yellow (Yellow) Urine Clarity Turbid (Clear) H Urine pH 5.5 (5.0-9.0) Urine Specific [place] 1.015 (1.001-1.035) Urine Protein 1+ (Negative) H Urine Ketones Negative (Negative) Urine Blood Negative /uL (Negative) Urine Nitrite Negative (Negative) Urine Bilirubin Negative (Negative) Urine Urobilinogen 2 mg/dL (Negative) H Urine Leukocyte Esterase Negative /uL (Negative) Urine RBC 5 /hpf (0 - 4) Urine Microscopic WBC 17 /HPF (0-5) H Urine Squamous Epithelial Cells Few /hpf (<5) Urine Bacteria None seen /hpf (None Seen) Urine Hyaline Casts Mod /lpf (0 - 2) Urine Mucus Few (None Seen) Urine Glucose Normal mg/dL (Normal) Microbiology Microbiology Date/Time Source Procedure Growth Status 06/19/25 07:50 Nose MRSA Screen - Final Complete 06/18/25 15:43 Voided Urine Urine Culture - Final Complete 06/18/25 08:35 Blood Blood Culture - Final NO GROWTH AFTER 5 DAYS OF INCUBATION. Complete Labs and/or images reviewed: Labs reviewed by me, Image(s) reviewed by me Assessment/Plan Assessment/Plan Impression: -sepsis -severe anemia, rule out GI bleed -pancreatic cancer, status post Whipple procedure from one year ago -septic shock -acute kidney injury, vasomotor nephropathy -obesity -primary hypertension -history of DVT -peripheral neuropathy Plan: Events: Patient has worsening leukocytosis. Now on norepinephrine at 2 micrograms/minute. Patient transferred to ICU yesterday after having AFib with RVR. Patient now in sinus rhythm with heart rate controlled in the 70s. -CT scan of the abdomen and pelvis with IV contrast -echocardiogram -physical therapy -continue Eliquis -normal saline bolus of 500 mL. Increase rate to 100 mL/hour -PPI -repeat cultures of blood and urine -continue antibiotic therapy with Flagyl, clindamycin, vancomycin -code status: DNI -daily labs -discussed plan of care, as well as going over labs, diagnostic testing, as well as treatment with both patient and significant other. All questions answered. Critical care time spent with patient discussing and formulating plan of care: 90 minutes. This does not include time spent performing procedures. This medical document was created using an electronic medical record system with [employer] dictation system. Although this document has been carefully reviewed, there may still be some phonetic and typographical errors. These areas are purely typographical due to imperfections of the software programs, and do not reflect any compromise in the patient's medical care. Plan discussed with: Patient, Spouse, Other (RN) My Orders Orders - ALTHEA KINGSTON NP Procedure Category Date Status Time Chest Xray 1 View XY 06/24/25 Resulted 10:05 Metoclopramide PHA 06/24/25 In Process Injection (Reglan 10:15 Transfer Orders XFER 06/24/25 Transmitted 12:03 Vancomycin Per PHA 06/24/25 In Process Pharmacy 12:30 Echo 2d Mode Cardiac US 06/25/25 Logged DOP 13:04 Blood Culture SARATH 06/25/25 Logged 07:42 Urine Bacterial SARATH 06/25/25 Logged Culture 07:42 Ct Ab Pel With Iv Con CT 06/25/25 Logged Only 07:42 Comprehensive LAB 06/26/25 Verified Metabolic Panel 05:00 Comprehensive LAB 06/27/25 Verified Metabolic Panel 05:00 Comprehensive LAB 06/28/25 Verified Metabolic Panel 05:00 Complete Blood Count LAB 06/26/25 Verified 05:00 Complete Blood Count LAB 06/27/25 Verified 05:00 Complete Blood Count LAB 06/28/25 Verified 05:00 Magnesium LAB 06/26/25 Verified 05:00 Magnesium LAB 06/27/25 Verified 05:00 Magnesium LAB 06/28/25 Verified 05:00 Sodium Chloride 0.9% PHA 06/25/25 In Process 09:00 Vancomycin PHA 06/25/25 Logged 1.75gm/350ml 15:00 Vancomycin Per ROS 06/25/25 In Process Pharmacy Protoc 09:01 Vancomycin,Trough LAB 06/27/25 Verified 14:00 Date of Service: Jun 25, 2025 Billing Provider: ALTHEA KINGSTON NP Common Visit Codes: [id number] CARE 30-74 MIN, [id number] CARE-EACH +30MIN ALTHEA KINGSTON NP Jun 25, 2025 09:21
[2025-06-25] MEDS: SODIUM CHLORIDE 0.9% 1,000 ML IV SCH (09:29)
[2025-06-25] MEDS: SODIUM CHLORIDE 0.9% 500 ML IV ONE (09:29)
--- NOTE | 2025-06-25 10:54 | DVHPN2 ---
Progress Note Date Seen: Jun 25, 2025 Medical Necessity Reason Pt with a Central, PICC or Fol: Yes The following are medically ne: Bennett Catheter Subjective Patient reports: No new complaints Other Systems: Patient seen and examined by myself today in follow-up Objective vital signs Vital Sign Date Time Temp Pulse Resp B/P (MAP) Pulse Ox O2 Delivery O2 Flow Rate FiO2 06/25/25 09:30 90 23 99/60 (73) 99 06/25/25 08:15 98.2 98.2 06/25/25 08:00 Room Air* 0 21 Total Intake and Output 06/24/25 06/24/25 06/25/25 15:00 23:00 07:00 Intake Total 1150 ml 500 ml Balance 1150 ml 500 ml medications Current Medications Medications Dose Ordered Sig/Anni Route Start Time Stop Time Status Last Admin Dose Admin Metronidazole 100 ml @ 100 mls/hr Q8HR IV 06/18/25 14:00 06/25/25 08:12 100 MLS/HR Nitroglycerin 0.4 mg Q5MINP PRN SL 06/18/25 13:00 Morphine Sulfate 2 mg Q30M PRN IV 06/18/25 13:00 Diagnostic Test (Pha) 1 strip ACHS 06/18/25 17:00 06/25/25 06:46 1 STRIP Insulin Human Regular ACHS SC 06/18/25 17:00 06/24/25 21:26 3 UNITS Dextrose 50 ml UD PRN IV 06/18/25 13:15 Oxycodone HCl 5 mg Q6HP PRN PO 06/19/25 11:00 06/22/25 21:27 5 MG Hydromorphone HCl 0.25 mg Q4HPRN PRN IV 06/19/25 11:00 06/24/25 09:13 0.25 MG Acetaminophen 500 mg Q8HP PRN PO 06/19/25 11:00 06/22/25 11:26 500 MG Ondansetron HCl 4 mg Q6HP PRN IV 06/19/25 11:00 06/24/25 09:11 4 MG Pantoprazole Sodium 40 mg DAILY IV 06/20/25 10:00 06/25/25 10:12 40 MG Sennosides 17.2 mg QHSP PRN PO 06/19/25 15:00 Gabapentin 300 mg BID PO 06/19/25 22:00 06/25/25 10:12 300 MG Clindamycin Phosphate 50 ml @ 100 mls/hr Q8HR IV 06/19/25 22:00 06/25/25 09:22 100 MLS/HR Guaifenesin/ Dextromethorphan 10 ml Q6HPRN PRN PO 06/20/25 20:15 06/20/25 21:35 10 ML Saccharomyces Boulardii 250 mg DAILY PO 06/24/25 10:00 06/25/25 10:13 250 MG Apixaban 5 mg BID PO 06/23/25 22:00 06/25/25 10:12 5 MG Metoclopramide HCl 10 mg Q8HPRN PRN IV 06/24/25 10:15 06/24/25 10:44 10 MG Vancomycin HCl 0 ml @ 0 mls/hr PER PHARMACY IV 06/24/25 12:30 Norepinephrine Bitartrate 250 ml @ 3.75 mls/hr Q24H IV 06/25/25 04:30 06/25/25 05:38 3.75 MLS/HR Sodium Chloride 1,000 ml @ 100 mls/hr Q10H IV 06/25/25 09:00 06/25/25 09:29 100 MLS/HR Vancomycin HCl 350 ml @ 200 mls/hr Q12H IV 06/25/25 15:00 UNV Examination: LUNGS:Normal, CVS:Normal, MSK:Normal laboratory and microbiology Laboratory Tests 06/25/25 02:14 Test 06/25/25 02:14 Range/Units Serum Glucose 103 74-106 mg/dL Microbiology Date/Time Source Procedure Growth Status 06/19/25 07:50 Nose MRSA Screen - Final Complete 06/18/25 15:43 Voided Urine Urine Culture - Final Complete 06/18/25 08:35 Blood Blood Culture - Final NO GROWTH AFTER 5 DAYS OF INCUBATION. Complete Problem List/Assessment/Plan Problem List/Assessment/Plan Acute kidney injury superimposed Chronic Kidney Disease secondary hemodynamic mediated Left hydroureteronephrosis Obstructive uropathy Severe anemia requiring packed red blood cell transfusion Hyperglycemia pancreatic cancer, history of Whipple procedure 2023 Hepatic metastasis Sepsis Hypoalbuminemia Hypomagnesemia Recommendation Kidney function is improving Increased urine output Strict I&Os Magnesium sulfate IV piggyback Packed red blood cell transfusion p.r.n. IV pressors for blood pressure support Insulin sliding scale Urology in following We will continue to follow up Plan discussed with: Patient My Orders My Orders Orders - AKILA PASTRANA MD Procedure Category Date Status Time Urine Sodium LAB 06/25/25 Transmitted 10:51 Urine LAB 06/25/25 Transmitted Protein/Creatinine Urine Creatinine LAB 06/25/25 Transmitted 10:51 Urinalysis LAB 06/25/25 Transmitted 10:51 Phosphorus LAB 06/25/25 Transmitted 10:51 Dietary Evaluation Review Recommendations by RD: Protein Supplementation Comments: 1) Add cardiac restriction to diet 2) Initiate MVI @ 1 tb qd 3) Initiate vitamin C @ 500 mg bid and zinc sulfate @ 220 mg qd for 7 days 4) Initiate Ensure High Protein qd 5) Refer to outpatient RD for weight management 6) Follow-up with oncology and cardiology 7) Continue to monitor I&O, labs, and skin integrity Expected Outcomes/Goals: 1) appetite and labs to improve 2) wound to improve 3) gradual wt loss 4) f/u in 3-5 days CC Plasma Assessment Blood Product Administration S: [id number] AKILA PASTRANA MD Jun 25, 2025 10:54
--- NOTE | 2025-06-25 11:39 | MEDREC ---
[facility] ASP Intervention Section I [facility] ASP Intervention: Duplication of therapy (Dupplication of therapy clindamycin & flaggyl. Please d/c clindamycin) SILVANA CUEVAS [facility] RESIDENT Jun 25, 2025 11:39
[2025-06-25 12:43] LABS: Urine Protein, UAD TRACE (Negative)
[2025-06-25 12:58] LABS: Protein, Urine 50.6 mg/dL (1-14)
[2025-06-25] MEDS: CLINDAMYCIN 300MG IV 50 ML IV SCH (16:55)
--- NOTE | 2025-06-25 17:45 | DVH ---
CLINICAL HISTORY: sepsis, pancreatic cancer, n/v TECHNIQUE: CT of the abdomen and pelvis was performed with intravenous contrast. This exam was performed according to our departmental dose optimization program. Up-to-date CT equipment and radiation dose reduction techniques are utilized as appropriate. CTDIVol: 24.41 mGy DLP: 1534.5 mGy-cm WID: COMPARISON: CT CT AB PEL WO CON-NO ORAL OR IV on DOS: 06/19/25 the report FINDINGS: Lower Thorax: Tip of a central venous catheter in the right atrium. Trace [id number]-right pleural effusions with mild dependent atelectasis bilaterally, greater on the left. Linear bibasilar scarring or atelectasis. At least mild partially imaged coronary artery calcifications. Liver and Biliary system: Normal-sized liver. Major portal veins are patent. There is a plastic stent in the common bile duct without biliary ductal dilatation. There is thickening /enhancement of the common bile duct. There are multiple peripherally enhancing /wall thickened fluid collections or lesions within the liver in the right lobe of the liver predominantly in segment 8 measures 5.3 x 7.1 cm on series 5, image 39. Spleen: Mild splenomegaly. Adrenal Glands and Kidneys: Normal adrenal glands. Small bilateral kidneys. Very mild bilateral renal cortical scarring. No hydronephrosis or nephrolithiasis. There are bilateral extrarenal pelves. Pancreas and Retroperitoneum: Prior Whipple procedure. Mild atrophy of the remaining pancreas. There is a pancreatico jejunostomy and choledocho jejunostomy in place. No definite residual or recurrent pancreatic mass. No retroperitoneal lymphadenopathy. Aorta and Major Vessels: Aortoiliac vessels are patent and normal caliber with mild mixed atherosclerotic plaque. Bowel, Mesentery and Peritoneal space: Normal caliber small and large bowel. There is a gastro jejunostomy. There is a small hiatal hernia. Normal appendix. Mild ascites. No free air or loculated fluid collection. Pelvis: Multiple calcified uterine fibroids. Enlarged uterus. Urinary bladder is mildly distended. There is no pelvic lymphadenopathy. Abdominal wall and Osseous Structures: There is body wall edema. Mild multilevel lower thoracic and lumbar spondylosis. Grade 1 anterolisthesis at L4-L5. No destructive osseous lesion. There is body wall edema. IMPRESSION: 1. Multiple hypodense wall thickened/peripherally enhancing lesions or collections in the liver. These could reflect hepatic abscesses versus metastatic disease. 2. Plastic stent in the common bile duct without intrahepatic bile duct dilatation. Mild thickening and enhancement of the common bile duct which may be reactive or related to ascending cholangitis. 3. Trace jewa-fhholxn-nlnk-right pleural effusions, body wall edema, and mild ascites. 4. Prior Whipple procedure without definite residual or recurrent pancreatic mass. 5. Prior pancreatico jejunostomy, choledocho jejunostomy, and gastro jejunostomy. 6. Enlarged fibroid uterus.
[2025-06-25] MEDS: VANCOMYCIN 1.75GM/350ML 350 ML IV SCH (18:36)
[2025-06-26] VITALS (63 sets, daily range): BP systolic 73–136; BP diastolic 35–68; PULSE 67–94; RESP 10–28; TEMP 97.7–98.7; O2SAT 0–99
[2025-06-26 03:09] LABS: Alanine Aminotransferase 10 U/L (7-40); Anion Gap 8 (5-15); BUN/Creatinine Ratio 9.1 (10.0-20.0); Carbon Dioxide 21 mmol/L (20-31); Magnesium 1.6 mg/dL (1.6-2.6); Sodium 137 mmol/L (136-145)
[2025-06-26 03:10] LABS: Chloride 108 mmol/L (98-107); Potassium 3.5 mmol/L (3.5-5.1)
[2025-06-26 03:11] LABS: Bilirubin, Total 0.3 mg/dL (0.2-1.0)
[2025-06-26 03:13] LABS: Albumin 2.4 g/dL (3.2-4.8); Alkaline Phosphatase 339 U/L (46-116); Blood Urea Nitrogen 7 mg/dL (9-23); Calcium 7.8 mg/dL (8.7-10.4); Glucose 126 mg/dL (74-106); Total Protein 5.3 g/dL (5.7-8.2)
[2025-06-26 03:17] LABS: Hematocrit 28.1 % (36.0-46.0); Hemoglobin 9.1 g/dL (12.2-16.2); Mean Corpuscular Hemoglobin 29.0 pg (28.0-32.0); Mean Corpuscular Volume 89.6 fL (80.0-100.0); Nucleated Red Blood Cells % 0.0 %
[2025-06-26] MEDS: MAGNESIUM SULFATE 1GM/100ML 100 ML IV SCH ×2 (05:10→14:00)
[2025-06-26] MEDS: SODIUM CHLORIDE 0.9% 500 ML IV ONE (05:10)
--- NOTE | 2025-06-26 13:19 | DVHPN2 ---
Progress Note Date Seen: Jun 26, 2025 Medical Necessity Reason Pt with a Central, PICC or Fol: Yes The following are medically ne: Bennett Catheter Subjective Patient reports: No new complaints Other Systems: Patient seen and examined by myself today in follow-up Objective vital signs Vital Sign Date Time Temp Pulse Resp B/P (MAP) Pulse Ox O2 Delivery O2 Flow Rate FiO2 06/26/25 11:00 69 19 110/58 (75) 99 06/26/25 10:00 Room Air* 0 21 06/26/25 08:00 98.7 98.7 Total Intake and Output 06/25/25 06/25/25 06/26/25 15:00 23:00 07:00 Intake Total 976.25 ml 1340 ml 1200 ml Output Total 100 ml Balance 976.25 ml 1240 ml 1200 ml medications Current Medications Medications Dose Ordered Sig/Anni Route Start Time Stop Time Status Last Admin Dose Admin Nitroglycerin 0.4 mg Q5MINP PRN SL 06/18/25 13:00 Morphine Sulfate 2 mg Q30M PRN IV 06/18/25 13:00 Diagnostic Test (Pha) 1 strip ACHS 06/18/25 17:00 06/26/25 11:49 1 STRIP Insulin Human Regular ACHS SC 06/18/25 17:00 06/25/25 22:40 2 UNITS Dextrose 50 ml UD PRN IV 06/18/25 13:15 Oxycodone HCl 5 mg Q6HP PRN PO 06/19/25 11:00 06/26/25 06:16 5 MG Hydromorphone HCl 0.25 mg Q4HPRN PRN IV 06/19/25 11:00 06/24/25 09:13 0.25 MG Acetaminophen 500 mg Q8HP PRN PO 06/19/25 11:00 06/26/25 05:08 500 MG Ondansetron HCl 4 mg Q6HP PRN IV 06/19/25 11:00 06/26/25 02:54 4 MG Pantoprazole Sodium 40 mg DAILY IV 06/20/25 10:00 06/26/25 09:53 40 MG Sennosides 17.2 mg QHSP PRN PO 06/19/25 15:00 Gabapentin 300 mg BID PO 06/19/25 22:00 06/26/25 09:54 300 MG Guaifenesin/ Dextromethorphan 10 ml Q6HPRN PRN PO 06/20/25 20:15 06/20/25 21:35 10 ML Saccharomyces Boulardii 250 mg DAILY PO 06/24/25 10:00 06/26/25 09:54 250 MG Apixaban 5 mg BID PO 06/23/25 22:00 06/26/25 09:53 5 MG Metoclopramide HCl 10 mg Q8HPRN PRN IV 06/24/25 10:15 06/24/25 10:44 10 MG Vancomycin HCl 0 ml @ 0 mls/hr PER PHARMACY IV 06/24/25 12:30 Norepinephrine Bitartrate 250 ml @ 3.75 mls/hr Q24H IV 06/25/25 04:30 06/25/25 05:38 3.75 MLS/HR Sodium Chloride 1,000 ml @ 100 mls/hr Q10H IV 06/25/25 09:00 06/26/25 02:59 100 MLS/HR Vancomycin HCl 350 ml @ 200 mls/hr DAILY@1800 IV 06/25/25 18:00 06/25/25 18:36 200 MLS/HR Metronidazole 100 ml @ 100 mls/hr Q8H IV 06/25/25 18:00 06/26/25 09:53 100 MLS/HR Levofloxacin/ Dextrose 100 ml @ 100 mls/hr DAILY IV 06/27/25 10:00 UNV Examination: LUNGS:Normal, CVS:Normal, MSK:Normal laboratory and microbiology Laboratory Tests 06/26/25 02:35 Test 06/26/25 02:35 Range/Units Serum Glucose 126 H 74-106 mg/dL Microbiology Date/Time Source Procedure Growth Status 06/25/25 11:35 Voided Urine Urine Culture - Preliminary No growth Resulted 06/25/25 09:05 Blood Blood Culture - Preliminary NO GROWTH AFTER 24 HOURS OF INCUBATION. Resulted 06/19/25 07:50 Nose MRSA Screen - Final Complete Problem List/Assessment/Plan Problem List/Assessment/Plan Acute kidney injury superimposed Chronic Kidney Disease secondary hemodynamic mediated Left hydroureteronephrosis Obstructive uropathy Severe anemia requiring packed red blood cell transfusion Hyperglycemia pancreatic cancer, history of Whipple procedure 2023 Hepatic metastasis Sepsis Hypoalbuminemia Hypomagnesemia Recommendation Kidney function is improving Increased urine output Strict I&Os Magnesium sulfate IV piggyback Packed red blood cell transfusion p.r.n. IV pressors for blood pressure support Insulin sliding scale Urology in following I will sign off this case please reconsult as needed Thank you for the consult Plan discussed with: Patient My Orders My Orders Orders - AKILA PASTRANA MD Procedure Category Date Status Time Magnesium Jason PHA 06/26/25 Verified 14:00 Dietary Evaluation Review Recommendations by RD: Protein Supplementation Comments: 1) Add cardiac restriction to diet 2) Initiate MVI @ 1 tb qd 3) Initiate vitamin C @ 500 mg bid and zinc sulfate @ 220 mg qd for 7 days 4) Initiate Ensure High Protein qd 5) Refer to outpatient RD for weight management 6) Follow-up with oncology and cardiology 7) Continue to monitor I&O, labs, and skin integrity Expected Outcomes/Goals: 1) appetite and labs to improve 2) wound to improve 3) gradual wt loss 4) f/u in 3-5 days CC Plasma Assessment Blood Product Administration S: [id number] AKILA PASTRANA MD Jun 26, 2025 13:19
--- NOTE | 2025-06-26 13:59 | DVHPNRES ---
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 Patient reports that she was trying to get up to go to the bathroom and fell however did not hit her head or lose consciousness. A family member was able to catch her head. Patient's daughter reports that she uses a front wheel walker or a cane. Patient's daughter catarino at the bedside and reports that her mom is from [place], initially had her Port-A-Cath in the right chest placed in [place] and had established care was on chemo in [place]. Reports that she recently moved here a month and a half ago, now has seen an oncologist at [facility] in [place] and plans are to have chemo start mid June. Reports that they want to delayed due to her weakness. Daughter reports that the last time she had chemo was on the . Next chemo is on Monday. Patient denies any active bleeding, hematemesis, or hematochezia. Patient also reports that she has been compliant with her medications. Patient denies any recent recent sick contacts, recent ingestion of spoiled food, recent trauma or injury, chest pain, shortness of breath, fever, chills, lightheadedness, dizziness, abdominal pain, nausea, vomiting, diarrhea, or urinary symptoms. Patient reports that she does not want to be intubated but does want other measures for resuscitation, includes medications, vasopressors, CPR, and BiPAP. past medical history: pancreatic cancer, liver Mets, bile duct cancer, metastasis to lung, hyperlipidemia, hypertension past surgical history: Port-A-Cath placed March,, Whipple surgery, ERCP, family history: mother had breast cancer, grandmother had breast cancer, dad with PA, CABG, diabetes personal history: denies smoking, alcohol, drug use 06/26/2025: patient seen in ICU. patient is on room air, complained of left leg pain, had nausea overnight. She is able to ambulate with PT, levo was turned off yesterday at 2:00 p.m. patient can be downgraded to tele, started Levaquin and stopped clindamycin. last bowel movement was today. Overnight when patient sleeps her blood pressure drops and bolus of 500 cc was given. Patient downgraded to telemetry. Objective vital signs Vital Sign Date Time Temp Pulse Resp B/P (MAP) Pulse Ox O2 Delivery O2 Flow Rate FiO2 06/26/25 11:00 69 19 110/58 (75) 99 06/26/25 10:00 Room Air* 0 21 06/26/25 08:00 98.7 98.7 Total Intake and Output 06/25/25 06/25/25 06/26/25 15:00 23:00 07:00 Intake Total 976.25 ml 1340 ml 1200 ml Output Total 100 ml Balance 976.25 ml 1240 ml 1200 ml medications Current Medications Medications Dose Ordered Sig/Anni Route Start Time Stop Time Status Last Admin Dose Admin Nitroglycerin 0.4 mg Q5MINP PRN SL 06/18/25 13:00 Morphine Sulfate 2 mg Q30M PRN IV 06/18/25 13:00 Diagnostic Test (Pha) 1 strip ACHS 06/18/25 17:00 06/26/25 11:49 1 STRIP Insulin Human Regular ACHS SC 06/18/25 17:00 06/25/25 22:40 2 UNITS Dextrose 50 ml UD PRN IV 06/18/25 13:15 Oxycodone HCl 5 mg Q6HP PRN PO 06/19/25 11:00 06/26/25 13:32 5 MG Hydromorphone HCl 0.25 mg Q4HPRN PRN IV 06/19/25 11:00 06/24/25 09:13 0.25 MG Acetaminophen 500 mg Q8HP PRN PO 06/19/25 11:00 06/26/25 05:08 500 MG Ondansetron HCl 4 mg Q6HP PRN IV 06/19/25 11:00 06/26/25 02:54 4 MG Pantoprazole Sodium 40 mg DAILY IV 06/20/25 10:00 06/26/25 09:53 40 MG Sennosides 17.2 mg QHSP PRN PO 06/19/25 15:00 Gabapentin 300 mg BID PO 06/19/25 22:00 11/6/25 09:54 300 MG Guaifenesin/ Dextromethorphan 10 ml Q6HPRN PRN PO 06/20/25 20:15 06/20/25 21:35 10 ML Saccharomyces Boulardii 250 mg DAILY PO 06/24/25 10:00 06/26/25 09:54 250 MG Apixaban 5 mg BID PO 06/23/25 22:00 06/26/25 09:53 5 MG Metoclopramide HCl 10 mg Q8HPRN PRN IV 06/24/25 10:15 06/24/25 10:44 10 MG Vancomycin HCl 0 ml @ 0 mls/hr PER PHARMACY IV 06/24/25 12:30 Norepinephrine Bitartrate 250 ml @ 3.75 mls/hr Q24H IV 06/25/25 04:30 06/25/25 05:38 3.75 MLS/HR Sodium Chloride 1,000 ml @ 100 mls/hr Q10H IV 06/25/25 09:00 06/26/25 02:59 100 MLS/HR Vancomycin HCl 350 ml @ 200 mls/hr DAILY@1800 IV 06/25/25 18:00 06/25/25 18:36 200 MLS/HR Metronidazole 100 ml @ 100 mls/hr Q8H IV 06/25/25 18:00 06/26/25 09:53 100 MLS/HR Levofloxacin/ Dextrose 100 ml @ 100 mls/hr DAILY IV 06/27/25 10:00 Magnesium Sulfate/ Dextrose 100 ml @ 100 mls/hr Q1HR IV 06/26/25 14:00 06/26/25 15:59 Examination General: Patient alert and oriented in person, place and time. Patient following commands. HEENT: Normocephalic, atraumatic, moist mucous membranes Respiratory/pulmonary: Clear lungs bilaterally, vesicular murmurs present in almost all lung brown, no associated crackles or wheezes. Cardiovascular: Normal heart sounds S1 and S2 with no associated murmurs Abdomen: Abdomen nondistended, there is no pain to palpation in any of the abdominal quadrants, no palpable masses. Obese abdomen, Extremities: There is no peripheral edema present at the lower extremities. bilateral peripheral edema nonpitting Peripheral Pulses: 3+ Radial (R). 3+ Radial (L). 3+ Dorsalis pedis (R). 3+ Dorsalis pedis(L) Skin: No rashes or pruritus, there is no sacral edema present at this time. Neurological: Intact cranial nerves with no focal neurologic deficits laboratory and microbiology Laboratory Tests 06/26/25 02:35 Test 06/26/25 02:35 Range/Units Serum Glucose 126 H 74-106 mg/dL Microbiology Date/Time Source Procedure Growth Status 06/25/25 11:35 Voided Urine Urine Culture - Preliminary No growth Resulted 06/25/25 09:05 Blood Blood Culture - Preliminary NO GROWTH AFTER 24 HOURS OF INCUBATION. Resulted 06/19/25 07:50 Nose MRSA Screen - Final Complete Problem List/Assessment/Plan Problem List/Assessment/Plan Neurology status post fall, -spine x-ray Showed: Mild spondylolisthesis of L2 on L3 and L4 on L5, Chronic appearing mild compression deformities at T11 and T12 and chronic appearing mild deformity at the superior endplate of L3. No findings are seen to suggest acute fracture. -normal neurological exam Cardiology Essential hypertension Hyperlipidemia - monitor blood pressure - atorvastatin 40 mg Respiratory Lung metastasis - Chest x ray showed No acute cardiopulmonary disease. GI History of pancreatic and liver cancer Mets to the lung septic shock likely due to Gram-positive bacteremia Intrahepatic abscesses, metastases/necrotic neoplasm Transaminitis Gram-positive bacteremia - follow-up with PCP, Oncology at [facility] - monitor labs - IV levofloxacin, vancomycin, Metronidazole - blood cultures showed preliminary Gram-positive cocci Renal/electrolytes Ajyv-yv-qegplwvm left hydroureteronephrosis KYLER Due to VMN - resolved Hypokalemia- resolved Hypomagnesemia- resolved Lactic acidosis-resolved - Iv fluids - CT abdomen showed Vyim-av-ynzumwlm left hydroureteronephrosis. No obstructing calculus identified. Recommend urology consultation for further evaluation. - renal ultrasound showed Normal sonographic appearance of the kidneys. No hydronephrosis. - nephrology on board - urology on board - radiology consult for left nephrostomy tubes - IV potassium, magnesium given Hematology/ Oncology History of pancreatic and liver cancer Mets to the lung severe anemia possibly due to pancreatic cancer Leukocytosis Hypovolemic versus septic shock History of DVT - transfuse 2 PRBC - transfuse PRBCs for hemoglobin less than 7.0 - lower extremity duplex showed : No right or left femoropopliteal venous thrombosis. Obesity BMI 38.2 - patient advised on lifestyle modifications, diet, exercise for greater than 18 minutes. Lines / Tubes / Devices Vascular Access: Peripheral IV Drips: Levophed stopped Prophylaxis / Supportive Care DVT Prophylaxis: Held due to anemia GI Prophylaxis: Protonix Goals of care discussed with the patient family for more than 29 minutes: DNI only Patient care updated to patient, , addressed all concerns. Critical care time spent excluding procedures 61 minutes Plan discussed with Dr. Perez and RN Plan discussed with: Spouse My Orders My Orders Orders - GALINDO ZAVALA Procedure Category Date Status Time Atorvastatin (Lipitor) PHA 06/26/25 Logged 22:00 Dietary Evaluation Review Recommendations by RD: Protein Supplementation Comments: 1) Add cardiac restriction to diet 2) Initiate MVI @ 1 tb qd 3) Initiate vitamin C @ 500 mg bid and zinc sulfate @ 220 mg qd for 7 days 4) Initiate Ensure High Protein qd 5) Refer to outpatient RD for weight management 6) Follow-up with oncology and cardiology 7) Continue to monitor I&O, labs, and skin integrity Expected Outcomes/Goals: 1) appetite and labs to improve 2) wound to improve 3) gradual wt loss 4) f/u in 3-5 days CC Plasma Assessment Blood Product Administration S: [id number] Date of Service: Jun 26, 2025 Billing Provider: NICOLE PEREZ MD Common Visit Codes: 35988-MMYCVMWI CARE 30-74 MIN GALINDO ZAVALA Jun 26, 2025 13:59 NICOLE PEREZ MD Jun 29, 2025 16:38
[2025-06-26] MEDS: ATORVASTATIN 20 MG TAB PO SCH (21:49)
[2025-06-27] VITALS (15 sets, daily range): BP systolic 60–161; BP diastolic 31–103; PULSE 40–112; RESP 14–28; TEMP 97.6–99; O2SAT 82–97
[2025-06-27 06:20] LABS: Hematocrit 26.4 % (36.0-46.0); Hemoglobin 8.6 g/dL (12.2-16.2); Mean Corpuscular Hemoglobin 29.4 pg (28.0-32.0); Mean Corpuscular Volume 89.8 fL (80.0-100.0); Nucleated Red Blood Cells % 0.0 %
[2025-06-27 06:43] LABS: Anion Gap 11 (5-15); Glucose 90 mg/dL (74-106); Magnesium 1.7 mg/dL (1.6-2.6); Sodium 138 mmol/L (136-145)
[2025-06-27 06:44] LABS: Bilirubin, Total 0.4 mg/dL (0.2-1.0)
[2025-06-27 06:58] LABS: Alanine Aminotransferase < 9 U/L (7-40); Albumin 2.2 g/dL (3.2-4.8); Alkaline Phosphatase 362 U/L (46-116); BUN/Creatinine Ratio 7.1 (10.0-20.0); Blood Urea Nitrogen < 5 mg/dL (9-23); Calcium 7.5 mg/dL (8.7-10.4); Carbon Dioxide 19 mmol/L (20-31); Chloride 108 mmol/L (98-107); Potassium 3.4 mmol/L (3.5-5.1); Total Protein 5.0 g/dL (5.7-8.2)
[2025-06-27] MEDS: POTASSIUM EFFERVESENT TAB 25 MEQ PO ONE (07:15)
[2025-06-27] MEDS: MAGNESIUM SULFATE 1GM/100ML 100 ML IV ONE (07:15)
--- NOTE | 2025-06-27 11:18 | DVHPNRES ---
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 Patient reports that she was trying to get up to go to the bathroom and fell however did not hit her head or lose consciousness. A family member was able to catch her head. Patient's daughter reports that she uses a front wheel walker or a cane. Patient's daughter catarino at the bedside and reports that her mom is from [place], initially had her Port-A-Cath in the right chest placed in [place] and had established care was on chemo in [place]. Reports that she recently moved here a month and a half ago, now has seen an oncologist at [facility] in [place] and plans are to have chemo start mid June. Reports that they want to delayed due to her weakness. Daughter reports that the last time she had chemo was on the . Next chemo is on Monday. Patient denies any active bleeding, hematemesis, or hematochezia. Patient also reports that she has been compliant with her medications. Patient denies any recent recent sick contacts, recent ingestion of spoiled food, recent trauma or injury, chest pain, shortness of breath, fever, chills, lightheadedness, dizziness, abdominal pain, nausea, vomiting, diarrhea, or urinary symptoms. Patient reports that she does not want to be intubated but does want other measures for resuscitation, includes medications, vasopressors, CPR, and BiPAP. past medical history: pancreatic cancer, liver Mets, bile duct cancer, metastasis to lung, hyperlipidemia, hypertension past surgical history: Port-A-Cath placed March,, Whipple surgery, ERCP, family history: mother had breast cancer, grandmother had breast cancer, dad with PR, CABG, diabetes personal history: denies smoking, alcohol, drug use 06/26/2025: patient seen in ICU. patient is on room air, complained of left leg pain, had nausea overnight. She is able to ambulate with PT, levo was turned off yesterday at 2:00 p.m. patient can be downgraded to tele, started Levaquin and stopped clindamycin. last bowel movement was today. Overnight when patient sleeps her blood pressure drops and bolus of 500 cc was given. Patient downgraded to telemetry. 06/27/2025: Patient seen at [facility], patient is on room complained of left leg pain, felt weak today, is ambulating with PT, spoke to daughter about [facility] which has scheduled next chemotherapy the 07 of July. Elevated WBC count today, potassium and magnesium were given. Patient had Low BP and was transferred to ICU, will be started on LEVO. Objective vital signs Vital Sign Date Time Temp Pulse Resp B/P (MAP) Pulse Ox O2 Delivery O2 Flow Rate FiO2 06/27/25 10:38 75 15 137/78 06/27/25 09:00 97.6 97 97.6 06/26/25 20:00 Room Air* 0 21 Total Intake and Output 06/26/25 06/26/25 06/27/25 15:00 23:00 07:00 Intake Total 1800 ml 600 ml Balance 1800 ml 600 ml medications Current Medications Medications Dose Ordered Sig/Anni Route Start Time Stop Time Status Last Admin Dose Admin Nitroglycerin 0.4 mg Q5MINP PRN SL 06/18/25 13:00 Morphine Sulfate 2 mg Q30M PRN IV 06/18/25 13:00 Diagnostic Test (Pha) 1 strip ACHS 06/18/25 17:00 06/27/25 06:21 1 STRIP Insulin Human Regular ACHS SC 06/18/25 17:00 06/25/25 22:40 2 UNITS Dextrose 50 ml UD PRN IV 06/18/25 13:15 Oxycodone HCl 5 mg Q6HP PRN PO 06/19/25 11:00 06/27/25 08:46 5 MG Hydromorphone HCl 0.25 mg Q4HPRN PRN IV 06/19/25 11:00 06/27/25 10:38 0.25 MG Acetaminophen 500 mg Q8HP PRN PO 06/19/25 11:00 06/26/25 17:31 500 MG Ondansetron HCl 4 mg Q6HP PRN IV 06/19/25 11:00 06/26/25 02:54 4 MG Pantoprazole Sodium 40 mg DAILY IV 06/20/25 10:00 06/27/25 10:00 40 MG Sennosides 17.2 mg QHSP PRN PO 06/19/25 15:00 Gabapentin 300 mg BID PO 06/19/25 22:00 06/27/25 10:00 300 MG Guaifenesin/ Dextromethorphan 10 ml Q6HPRN PRN PO 06/20/25 20:15 06/20/25 21:35 10 ML Saccharomyces Boulardii 250 mg DAILY PO 06/24/25 10:00 06/27/25 10:00 250 MG Apixaban 5 mg BID PO 06/23/25 22:00 06/27/25 10:00 5 MG Metoclopramide HCl 10 mg Q8HPRN PRN IV 06/24/25 10:15 06/24/25 10:44 10 MG Vancomycin HCl 0 ml @ 0 mls/hr PER PHARMACY IV 06/24/25 12:30 Norepinephrine Bitartrate 250 ml @ 3.75 mls/hr Q24H IV 06/25/25 04:30 06/25/25 05:38 3.75 MLS/HR Sodium Chloride 1,000 ml @ 100 mls/hr Q10H IV 06/25/25 09:00 06/26/25 15:01 100 MLS/HR Vancomycin HCl 350 ml @ 200 mls/hr DAILY@1800 IV 06/25/25 18:00 06/26/25 17:31 200 MLS/HR Metronidazole 100 ml @ 100 mls/hr Q8H IV 06/25/25 18:00 06/27/25 02:00 100 MLS/HR Levofloxacin/ Dextrose 100 ml @ 100 mls/hr DAILY IV 06/27/25 10:00 06/27/25 10:00 100 MLS/HR Atorvastatin Calcium 40 mg HS PO 06/26/25 22:00 06/26/25 21:49 40 MG Examination General: Patient alert and oriented in person, place and time. Patient following commands. HEENT: Normocephalic, atraumatic, moist mucous membranes Respiratory/pulmonary: Clear lungs bilaterally, vesicular murmurs present in almost all lung brown, no associated crackles or wheezes. Cardiovascular: Normal heart sounds S1 and S2 with no associated murmurs Abdomen: Abdomen nondistended, there is no pain to palpation in any of the abdominal quadrants, no palpable masses. Obese abdomen, Extremities: There is no peripheral edema present at the lower extremities. bilateral peripheral edema nonpitting Peripheral Pulses: 3+ Radial (R). 3+ Radial (L). 3+ Dorsalis pedis (R). 3+ Dorsalis pedis(L) Skin: No rashes or pruritus, there is no sacral edema present at this time. Neurological: Intact cranial nerves with no focal neurologic deficits laboratory and microbiology Laboratory Tests 06/27/25 04:45 Test 06/27/25 04:45 Range/Units Serum Glucose 90 74-106 mg/dL Microbiology Date/Time Source Procedure Growth Status 06/25/25 11:35 Voided Urine Urine Culture - Preliminary No growth Resulted 06/25/25 09:05 Blood Blood Culture - Preliminary NO GROWTH AFTER 48 HOURS OF INCUBATION. Resulted 06/19/25 07:50 Nose MRSA Screen - Final Complete Problem List/Assessment/Plan Problem List/Assessment/Plan Neurology status post fall, -spine x-ray Showed: Mild spondylolisthesis of L2 on L3 and L4 on L5, Chronic appearing mild compression deformities at T11 and T12 and chronic appearing mild deformity at the superior endplate of L3. No findings are seen to suggest acute fracture. -normal neurological exam Cardiology Essential hypertension Hyperlipidemia Hypovolemic versus septic shock - monitor blood pressure - atorvastatin 40 mg Respiratory Lung metastasis - Chest x ray showed No acute cardiopulmonary disease. GI History of pancreatic and liver cancer Mets to the lung septic shock likely due to Gram-positive bacteremia Intrahepatic abscesses VS metastases/necrotic neoplasm Transaminitis Gram-positive bacteremia - follow-up with PCP, Oncology at [facility] - monitor labs - IV levofloxacin, vancomycin, Metronidazole - blood cultures showed preliminary Gram-positive cocci Renal/electrolytes KYLER Due to VMN - resolved Nxmn-gi-ujiblrpq left hydroureteronephrosis Hypokalemia- resolved Hypomagnesemia- resolved Lactic acidosis-resolved - Iv fluids - CT abdomen showed Ljed-qj-zsmjyqod left hydroureteronephrosis. No obstructing calculus identified. Recommend urology consultation for further evaluation. - renal ultrasound showed Normal sonographic appearance of the kidneys. No hydronephrosis. - nephrology on board - urology on board - radiology consult for left nephrostomy tubes - IV potassium, magnesium given Hematology/ Oncology History of pancreatic and liver cancer Mets to the lung Severe anemia likely due to pancreatic cancer Leukocytosis History of DVT - transfuse 2 PRBC - transfuse PRBCs for hemoglobin less than 7.0 - lower extremity duplex showed : No right or left femoropopliteal venous thrombosis. - on chemotherapy Obesity BMI 38.2 - patient advised on lifestyle modifications, diet, exercise for greater than 18 minutes. Lines / Tubes / Devices Vascular Access: Peripheral IV Drips: Levophed stopped Prophylaxis / Supportive Care DVT Prophylaxis: Held due to anemia GI Prophylaxis: Protonix Goals of care discussed with the patient family for more than 29 minutes: DNI only Patient care updated to patient, , addressed all concerns. Critical care time spent excluding procedures 81 minutes Plan discussed with Dr. Espinosa and RN Plan discussed with: Patient, Daughter My Orders My Orders Orders - GALINDO ZAVALA Procedure Category Date Status Time Atorvastatin (Lipitor) PHA 06/26/25 In Process 22:00 Dietary Evaluation Review Recommendations by RD: Protein Supplementation Comments: 1) Add cardiac restriction to diet 2) Initiate MVI @ 1 tb qd 3) Initiate vitamin C @ 500 mg bid and zinc sulfate @ 220 mg qd for 7 days 4) Initiate Ensure High Protein qd 5) Refer to outpatient RD for weight management 6) Follow-up with oncology and cardiology 7) Continue to monitor I&O, labs, and skin integrity Expected Outcomes/Goals: 1) appetite and labs to improve 2) wound to improve 3) gradual wt loss 4) f/u in 3-5 days CC Plasma Assessment Blood Product Administration S: [id number] GALINDO ZAVALA RESIDENT Jun 27, 2025 11:18
[2025-06-27] MEDS: MORPHINE SULFATE INJ 2 MG/ml SYRG IV PRN (13:06)
--- NOTE | 2025-06-27 14:14 | ECG ---
[facility] Test Date: 2025-06-24 Test Time: 12:21:42 Pat Name: GAIL ABAD Department: Respiratoy Room: [address] [place] [address] Gender: F Marketing Automation Specialist: BRENDON : 1955 Requested By: ALTHEA KINGSTON Order Number: [id number] Reading MD: Jesse Leonard Measurements Intervals [place] Rate: 136 P: 0 NM: 0 QRS: -10 QRSD: 86 T: 15 QT: 404 QTc: 608 Interpretive Statements Junctional tachycardia Low voltage, precordial leads Prolonged QT interval Electronically Signed On 06-30-2025 11:03:07 PST by Jesse Leonard Please click the below link to view image of tracing.
--- NOTE | 2025-06-27 14:14 | ECG ---
[facility] Test Date: 2025-06-24 Test Time: 11:45:27 Pat Name: GAIL ABAD Department: Respiratoy Room: [address] [place] [address] Gender: F Drug And Alcohol Treatment Specialist: KAREN : 1955 Requested By: ALTHEA KINGSTON Order Number: [id number] Reading MD: Jesse Leonard Measurements Intervals [place] Rate: 155 P: 7 AR: 123 QRS: -12 QRSD: 87 T: 0 QT: 287 QTc: 461 Interpretive Statements Supraventricular tachycardia Inferior infarct, old Lateral leads are also involved Baseline wander in lead(s) II,III,aVR,aVL,aVF Electronically Signed On 06-30-2025 11:02:56 PST by Jesse Leonard Please click the below link to view image of tracing.
--- NOTE | 2025-06-27 14:14 | ECG ---
[facility] Test Date: 2025-06-24 Test Time: 12:20:33 Pat Name: GAIL ABAD Department: Respiratoy Room: [address] [place] [address] Gender: F Case Folder: BRENDON : 1955 Requested By: ALTHEA KINGSTON Order Number: [id number] Reading MD: Jesse Leonard Measurements Intervals [place] Rate: 136 P: -1 NE: 58 QRS: -9 QRSD: 93 T: 19 QT: 346 QTc: 521 Interpretive Statements Sinus tachycardia Low voltage, precordial leads Prolonged QT interval Electronically Signed On 06-30-2025 11:02:57 PST by Jesse Leonard Please click the below link to view image of tracing.
[2025-06-27] MEDS: ALBUMIN 25% 100 ML IV ONE ×2 (16:33→17:36)
[2025-06-27] MEDS ORDERED: NOREPINEPHRINE 8 MG/250ML KIT 250 ML IV SCH (17:30)
--- NOTE | 2025-06-27 17:56 | DVH ---
CHEST RADIOGRAPH Indication: SOB Technique: Single frontal view of the chest was obtained Comparison: XY CHEST XRAY 1 VIEW on DOS: 06/24/25, XY CHEST PORTABLE on DOS: 06/18/25 FINDINGS: Lines and Tubes: Right-sided Port-A-Cath in place unchanged in position. Lungs: No focal consolidation. Pleura: No effusion. No pneumothorax. Cardiomediastinal contours: Unremarkable Bones: No acute osseous abnormality. IMPRESSION: 1. No acute cardiopulmonary disease.
[2025-06-27 18:51] LABS: Alanine Aminotransferase 10 U/L (7-40); Anion Gap 13 (5-15); BUN/Creatinine Ratio 8.6 (10.0-20.0); Glucose 75 mg/dL (74-106); Magnesium 1.7 mg/dL (1.6-2.6); Sodium 139 mmol/L (136-145)
[2025-06-27 18:52] LABS: Bilirubin, Total 0.6 mg/dL (0.2-1.0)
[2025-06-27 19:00] LABS: Blood Urea Nitrogen 7 mg/dL (9-23); Carbon Dioxide 17 mmol/L (20-31); Chloride 109 mmol/L (98-107); Potassium 3.2 mmol/L (3.5-5.1)
[2025-06-27] MEDS ORDERED: EPINEPHrine HCL 1 MG/10 ML SYRG ONE (19:00)
[2025-06-27] MEDS ORDERED: EPINEPHrine HCL 250 ML IV SCH (19:00)
[2025-06-27 19:01] LABS: Albumin 2.1 g/dL (3.2-4.8); Alkaline Phosphatase 386 U/L (46-116); Calcium 7.5 mg/dL (8.7-10.4); Total Protein 4.7 g/dL (5.7-8.2)
[2025-06-27] MEDS ORDERED: EPINEPHrine HCL 250 ML IV ONE (19:01)
[2025-06-27] MEDS ORDERED: VASOPRESSIN 20 UNIT/ML ONE (19:07)
[2025-06-27] MEDS ORDERED: PHENYLEPHRINE IV 0 ML IV ONE (19:07)
[2025-06-27 19:11] LABS: Hemoglobin 8.4 g/dL (12.2-16.2); Nucleated Red Blood Cells % 0.4 %
[2025-06-27 19:13] LABS: Hematocrit 25.8 % (36.0-46.0); Mean Corpuscular Hemoglobin 30.5 pg (28.0-32.0); Mean Corpuscular Volume 93.8 fL (80.0-100.0)
[2025-06-27] MEDS ORDERED: VASOPRESSIN 20 UNITS in SODIUM CHL 0.9% 99 ML IV SCH (19:15)
[2025-06-27] MEDS ORDERED: PHENYLEPHRINE IV 250 ML IV SCH (19:15)
--- NOTE | 2025-06-27 19:21 | PRN ---
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 Patient reports that she was trying to get up to go to the bathroom and fell however did not hit her head or lose consciousness. A family member was able to catch her head. Patient's daughter reports that she uses a front wheel walker or a cane. Patient's daughter catarino at the bedside and reports that her mom is from [place], initially had her Port-A-Cath in the right chest placed in [place] and had established care was on chemo in [place]. Reports that she recently moved here a month and a half ago, now has seen an oncologist at [facility] in [place] and plans are to have chemo start mid June. This afternoon the patient was hypotensive and septic, s/p IV fluid, albumin, restarted on pressors and the patient was upgraded by the primary team to ICU level of care. Declaration Summary: Attended the code blue, on pressors, hypotensive, several cycles to ACLS, not able to maintain spontaneous cardiorespiratory function. The family was counseled and code modified. Notified by the nurse that the patient was in asystole and unresponsive. Detailed bedside examination revealed: -The patient was unresponsive to verbal or painful stimuli. -Spontaneous Heart and lung sounds are absent. -No spontaneous cardiac or respiratory activity noted over 5 minutes. -No corneal pupillary reflex present while checked twice. -Pupils are fixed and dilated over the examination period. The patient was pronounced clinically at 19:12 of date-06/27/2025 by Benjamin Stephen MD. Patient's family and patient's nurse were updated by the healthcare team. Appropriate and empathic condolences were provided to the patient's dear ones. BENJAMIN STEPHEN RESIDENT Jun 27, 2025 19:21
[2025-06-27 19:42] LABS: Alanine Aminotransferase 11 U/L (7-40); Anion Gap 10 (5-15); BUN/Creatinine Ratio 7.9 (10.0-20.0); Bilirubin, Total 0.6 mg/dL (0.2-1.0); Calcium 9.3 mg/dL (8.7-10.4); Chloride 106 mmol/L (98-107); Magnesium 2.0 mg/dL (1.6-2.6)
[2025-06-27 19:47] LABS: Albumin 2.3 g/dL (3.2-4.8); Alkaline Phosphatase 329 U/L (46-116); Blood Urea Nitrogen 7 mg/dL (9-23); Carbon Dioxide 19 mmol/L (20-31); Glucose 250 mg/dL (74-106); Potassium 3.4 mmol/L (3.5-5.1); Sodium 135 mmol/L (136-145); Total Protein 4.8 g/dL (5.7-8.2)
[2025-06-27] MEDS ORDERED: HYDROCORTISONE SOD SUCC 100 MG/2ML INJ VIAL IV ONE (20:00)
[2025-06-27] MEDS ORDERED: EPINEPHrine HCL 1 MG/10 ML SYRG IV ONE (21:45)
[2025-06-27] MEDS ORDERED: CALCIUM CHLOR(10%) 100MG/ML 10ML SYRINGE IV ONE (21:45)
[2025-06-27] MEDS ORDERED: ATROPINE SULF 1 MG/10ml SYR IV ONE (21:45)
[2025-06-27] MEDS ORDERED: SODIUM BICARB 8.4% 50Meq/50ml SYR INJ IV ONE (21:45)
--- NOTE | 2025-06-27 23:47 | DVHPN2 ---
Subjective DOS: 06/27/2025 Patient seen and examined at bedside. Breathing on room air. Overnight events reviewed. Reviewed: Care Plan, H&P, Labs, Medications Changes from previous H/P or p: No Changes General: Per HPI Objective Vitals Vital Signs Date Time Temp Pulse Resp B/P (MAP) Pulse Ox O2 Delivery O2 Flow Rate FiO2 06/27/25 19:18 114/87 (96) 06/27/25 19:10 50 14 06/27/25 19:05 91 06/27/25 14:43 98.7 06/27/25 08:00 Room Air* 0 21 Intake/Output Intake and Output 06/27/25 07:00 Intake Total 2400 ml Balance 2400 ml Intake Oral 1200 ml Other 1200 ml # Voids 5 # Bowel Movements 1 General Appearance: Alert, Oriented X3, Cooperative, mild distress HEENT: Atraumatic, PERRLA Lungs: Clear to auscultation, Normal air movement Cardiovascular: Normal S1, Normal S2, Other (Sinus rhythm) Abdomen: Normal bowel sounds, Soft, No tenderness, No hepatospenomegaly Genitourinary: No Apparent Abnormalities Musculoskeletal: Normal sensory function, Normal motor function Extremities: Normal pulses Neuro: Normal speech Skin: Dry, Intact Psych/Mental Status: Mental status NL, Mood NL Laboratory Results Laboratory Tests 06/27/25 19:02 Chemistry Test 06/27/25 04:45 06/27/25 16:49 06/27/25 19:02 Albumin 2.2 g/dL (3.2-4.8) L 2.1 g/dL (3.2-4.8) L 2.3 g/dL (3.2-4.8) L Calcium Level 7.5 mg/dL (8.7-10.4) L 7.5 mg/dL (8.7-10.4) L 9.3 mg/dL (8.7-10.4) Magnesium Level 1.7 mg/dL (1.6-2.6) 1.7 mg/dL (1.6-2.6) 2.0 mg/dL (1.6-2.6) Total Protein 5.0 g/dL (5.7-8.2) L 4.7 g/dL (5.7-8.2) L 4.8 g/dL (5.7-8.2) L Phosphorus Level 3.5 mg/dL (2.4-5.1) LFT Test 06/27/25 04:45 06/27/25 16:49 06/27/25 19:02 Alanine Aminotransferase (ALT) < 9 U/L (7-40) 10 U/L (7-40) 11 U/L (7-40) Alkaline Phosphatase 362 U/L (46-116) H 386 U/L (46-116) H 329 U/L (46-116) H Aspartate Amino Transferase (AST) 12 U/L (13-40) L 13 U/L (13-40) 36 U/L (13-40) Total Bilirubin 0.4 mg/dL (0.2-1.0) 0.6 mg/dL (0.2-1.0) 0.6 mg/dL (0.2-1.0) Urinalysis Test 06/18/25 15:43 06/25/25 11:35 Urine Hyaline Casts Mod /lpf (0 - 2) Urine Color Yellow (Yellow) Urine Clarity Clear (Clear) Urine pH 5.5 (5.0-9.0) Urine Specific [place] 1.022 (1.001-1.035) Urine Protein Trace (Negative) H Urine Ketones Negative (Negative) Urine Blood Trace /uL (Negative) H Urine Nitrite Negative (Negative) Urine Bilirubin Negative (Negative) Urine Urobilinogen Normal mg/dL (Negative) Urine Leukocyte Esterase Trace /uL (Negative) Urine RBC 8 /hpf (0 - 4) Urine Microscopic WBC 4 /HPF (0-5) Urine Squamous Epithelial Cells Few /hpf (<5) Urine Bacteria None seen /hpf (None Seen) Urine Mucus Few (None Seen) Urine Creatinine 126.74 mg/dL (30.0-125.0) H Urine Protein/Creatinine Ratio 0.40 Urine Sodium 26 mmol/L (40-220) L Urine Glucose Normal mg/dL (Normal) Urine Total Protein 50.6 mg/dL (1-14) H Microbiology Microbiology Date/Time Source Procedure Growth Status 06/25/25 11:35 Voided Urine Urine Culture - Final Complete 06/25/25 09:05 Blood Blood Culture - Preliminary NO GROWTH AFTER 48 HOURS OF INCUBATION. 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 Note, patient was upgraded to ICU. Shock - started on pressors. Chest x ray showed no acute cardiopulmonary disease. IV antibiotics F/u cultures Monitor WBC d/t leukocytosis Stress dose steroids Pressors for hemodynamic support Titrate to keep MAP above 65 mmHg/SBP above 90 mmHg. Monitor blood pressure Follow up Oncology recs Monitor renal function. Monitor electrolytes. Supplement as necessary. Monitor ins and outs. Monitor hemoglobin Transfuse if less than 7.0 g/dL. Morbid obesity complicates all care DVT prophylaxis. Note, patient coded. I was present at the bedside. See code blue sheet for full details. Cardiology recommendations appreciated. Poor prognosis with high likelihood of demise. Addendum: Patient during code and was pronounced. Prognosis: Poor given patient's multiple co-morbidities. Condition: Critical. Rest of plan per hospitalist and other consultants. A total of 35 minutes of critical care time was spent reviewing the patient record, examining the patient, making a diagnostic and therapeutic plan, discussing this plan with the medical personnel, following up on diagnostic studies and following the patient for clinical stability excluding any and all procedures. At least 50% of this time was spent in direct, [id number] contact. Thank you for allowing me to participate in this patient's care. Further recommendations will depend on the patient's clinical course. Please do not hesitate to contact me if you have any questions or concerns. This medical document was created using an electronic medical record system with [employer] dictation system. Although these documentations are being carefully reviewed, there may still be some phonetic and typographical changes. The errors are purely typographical, due to imperfection on the software program, and do not reflect any compromise in the patient's medical care. Plan discussed with: Other (MEHNAZ Fleming) Visit Coding Pulmonary Billing Provider: CAMERON MUSTAFA MD Date of Service if different f: Jun 27, 2025 Common Visit Codes: 39506-[id number] INP/OBS CARE(HIGH), 15163-[id number] CARE 30-74 MIN CAMERON MUSTAFA MD Jun 27, 2025 23:47
[2025-06-28] MEDS ORDERED: HYDROCORTISONE SOD SUCC 100 MG/2ML INJ VIAL IV SCH (06:00)
--- NOTE | 2025-06-29 17:34 | DVHDSRES ---
Discharge Summary Date of Admission Resident Creating Document: GALINDO ZAVALA RESIDENT Jun 18, 2025 at 12:48 Date of Discharge: Jun 27, 2025 Admitting Diagnosis Hypovolemic versus septic shock Labs/Diagnostic Data: Laboratory Results Test 06/27/25 19:02 06/27/25 18:14 06/27/25 16:49 06/26/25 21:40 White Blood Count 9.4 10^3/uL (4.4-10.8) Red Blood Count 2.75 10^6/uL (4.0-5.20) Hemoglobin 8.4 g/dL (12.2-16.2) Hematocrit 25.8 % (36.0-46.0) Mean Corpuscular Volume 93.8 fL (80.0-100.0) Mean Corpuscular Hemoglobin 30.5 pg (28.0-32.0) Mean Corpuscular Hemoglobin Concent 32.5 g/dL (32.0-36.0) Red Cell Distribution Width 21.2 % (11.8-14.3) Platelet Count 44 10^3/uL (140-450) Mean Platelet Volume 7.3 fL (6.9-10.8) Neutrophils (%) (Auto) 58.0 % (37.0-80.0) Lymphocytes (%) (Auto) 39.4 % (10.0-50.0) Monocytes (%) (Auto) 1.2 % (0.0-12.0) Eosinophils (%) (Auto) 0.1 % (0.0-7.0) Basophils (%) (Auto) 1.3 % (0.0-2.0) Neutrophils # (Auto) 5.4 10 ^3/uL (1.6-8.6) Lymphocytes # (Auto) 3.7 10 ^3/uL (0.4-5.4) Monocytes # (Auto) 0.1 10 ^3/uL (0-1.3) Eosinophils # (Auto) 0 10 ^3/uL (0-0.8) Basophils # (Auto) 0.1 10 ^3/uL (0-0.2) Nucleated Red Blood Cells 0.4 % Sodium Level 135 mmol/L (136-145) Potassium Level 3.4 mmol/L (3.5-5.1) Chloride Level 106 mmol/L (98-107) Carbon Dioxide Level 19 mmol/L (20-31) Anion Gap 10 (5-15) Blood Urea Nitrogen 7 mg/dL (9-23) Creatinine 0.89 mg/dL (0.550-1.02) Glomerular Filtration Rate Calc 71 mL/min (>90) BUN/Creatinine Ratio 7.9 (10.0-20.0) Serum Glucose 250 mg/dL (74-106) Calcium Level 9.3 mg/dL (8.7-10.4) Phosphorus Level 3.5 mg/dL (2.4-5.1) Magnesium Level 2.0 mg/dL (1.6-2.6) Total Bilirubin 0.6 mg/dL (0.2-1.0) Aspartate Amino Transferase (AST) 36 U/L (13-40) Alanine Aminotransferase (ALT) 11 U/L (7-40) Alkaline Phosphatase 329 U/L (46-116) Total Protein 4.8 g/dL (5.7-8.2) Albumin 2.3 g/dL (3.2-4.8) Lactic Acid Level 1.2 mmol/L (0.4-2.0) Vancomycin Level Trough 11.6 ug/mL (5-10) POC Glucose 119 mg/dl (70-106) Test 06/25/25 11:35 06/25/25 02:14 06/24/25 10:38 06/22/25 05:00 Urine Color Yellow (Yellow) Urine Clarity Clear (Clear) Urine pH 5.5 (5.0-9.0) Urine Specific [place] 1.022 (1.001-1.035) Urine Protein Trace (Negative) Urine Ketones Negative (Negative) Urine Blood Trace /uL (Negative) Urine Nitrite Negative (Negative) Urine Bilirubin Negative (Negative) Urine Urobilinogen Normal mg/dL (Negative) Urine Leukocyte Esterase Trace /uL (Negative) Urine RBC 8 /hpf (0 - 4) Urine Microscopic WBC 4 /HPF (0-5) Urine Squamous Epithelial Cells Few /hpf (<5) Urine Bacteria None seen /hpf (None Seen) Urine Mucus Few (None Seen) Urine Creatinine 126.74 mg/dL (30.0-125.0) Urine Protein/Creatinine Ratio 0.40 Urine Sodium 26 mmol/L (40-220) Urine Glucose Normal mg/dL (Normal) Urine Total Protein 50.6 mg/dL (1-14) Random Vancomycin Level 17.0 ug/mL (5-10) Differential Total Cells Counted 100.0 (100) Neutrophils % (Manual) 76 (37.0-80.0) Band Neutrophils % (Manual) 10 Lymphocytes % (Manual) 11 (10.0-50.0) Monocytes % (Manual) 0 (0-12) Eosinophils % (Manual) 0 (0-7) Basophils % (Manual) 0 (0.0-2.0) Metamyelocytes % (manual) 1 Myelocytes % (Manual) 1 Promyelocytes % (Manual) 0 Blast Cells % (Manual) 0 Reactive Lymphocytes 1 Platelet Estimate Adequate Large Platelets Few Anisocytosis (manual) Slight Schistocytes Few Stool Occult Blood Sample #3 Negative (Negative) Test 06/22/25 02:40 06/19/25 14:19 06/19/25 12:53 06/18/25 15:43 Creatine Kinase < 15 U/L (34-145) CA 19-9 Antigen 238 U/mL (0-35) B-Type Natriuretic Peptide 334.32 pg/mL (0-100) Urine Hyaline Casts Mod /lpf (0 - 2) Test 06/18/25 08:35 Clumped Platelets Few Reticulocyte Count (auto) 2.03 % (0.5-1.5) Prothrombin Time 14.1 sec (9.3-11.8) Prothrombin Time INR 1.37 (0.9-1.15) Activated Partial Thromboplast Time 34.0 SEC (24.5-34.5) Hemoglobin A1c < 3.8 % A1C (<5.7) Lactate Dehydrogenase 280 U/L (120-246) Other Laboratory Tests 06/27/25 19:02 Brief Hx & Hospital Course: Hanny Pan was a 69-year-old female with a complex medical history including pancreatic cancer, 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 [place] was under the care of oncology at [facility] in [place], with plans to resume chemotherapy on July 07, 2025. She presented to the emergency department with generalized weakness ongoing for over a month and a recent fall while attempting to ambulate to the bathroom. She denied head trauma or loss of consciousness, and her daughter, Kayy, was present at the bedside to provide collateral history. During her hospitalization, Ms. Pan was initially managed in the ICU for hypotension and respiratory symptoms. She was later downgraded to telemetry after clinical improvement, including resolution of acute kidney injury, hypokalemia, hypomagnesemia, and lactic acidosis. She was treated for suspected septic shock secondary to Gram-positive bacteremia with IV antibiotics including levofloxacin, vancomycin, and metronidazole. Imaging revealed intrahepatic abscesses versus necrotic neoplasm, and [id number] left hydroureteronephrosis without obstructing calculus. Nephrology, urology, and radiology were consulted, and a nephrostomy tube was considered. Hematologically, she had severe anemia likely related to her malignancy and received transfusions of packed red blood cells. No evidence of DVT was found on duplex ultrasound. Despite initial stabilization, Ms. Pan experienced a sudden deterioration on June 27, 2025, with respiratory distress and bradycardia. A code blue was called, and atropine was administered. Her family was present and confirmed her code status as Do Not Intubate and Do Not Resuscitate. Ms. Pan peacefully on June 27, 2025. The patient was pronounced clinically at 19:12 of date-06/27/2025 by Benjamin Abbott MD. Her care was aligned with her goals and supported by her family throughout her hospitalization. Operations or Procedures Technique: CT axial images of the abdomen and pelvis are obtained without contrast. Coronal and sagittal reformats were obtained. IMPRESSION: Limited evaluation without contrast. Right hepatic lobe hypodense lesions measuring 6.2, 3.5 and 2.1 cm are possibly communicating with one another. Differential considerations would include intrahepatic abscesses, metastases/necrotic neoplasm. Recommend multiphasic MRI abdomen with and without contrast. This may represent the source of the patient's sepsis. Findings suggestive of procedure. Cxlq-ei-exrsvjen left hydroureteronephrosis. No obstructing calculus identified. Recommend urology consultation for further evaluation. Calcified uterine leiomyomas. Tiny bilateral pleural effusions. Other findings as described. ------ TECHNIQUE: Multiple real-time grayscale transabdominal sonographic images along with color and duplex Doppler of the uterus and ovaries were obtained. COMPARISON: None IMPRESSION: 1. Bennett catheter poorly visualized 2. Ureteral jets not visualized. ------ INDICATION: reassess hydro to left kidney TECHNIQUE: Multiple real-time sonographic images of the kidneys and bladder were obtained. COMPARISON: None IMPRESSION: 1. Mild left hydronephrosis. 2. Mildly decreased right renal cortical thickness. ----- CLINICAL HISTORY: sepsis, pancreatic cancer, n/v TECHNIQUE: CT of the abdomen and pelvis was performed with intravenous contrast. This exam was performed according to our departmental dose optimization program. Up-to-date CT equipment and radiation dose reduction techniques are utilized as appropriate. CTDIVol: 24.41 mGy DLP: 1534.5 mGy-cm COMPARISON: CT CT AB PEL WO CON-NO ORAL OR IV on DOS: 06/19/25 the report IMPRESSION: 1. Multiple hypodense wall thickened/peripherally enhancing lesions or collections in the liver. These could reflect hepatic abscesses versus metastatic disease. 2. Plastic stent in the common bile duct without intrahepatic bile duct dilatation. Mild thickening and enhancement of the common bile duct which may be reactive or related to ascending cholangitis. 3. Trace itmd-hsjvwyt-qhjt-right pleural effusions, body wall edema, and mild ascites. 4. Prior Whipple procedure without definite residual or recurrent pancreatic mass. 5. Prior pancreatico jejunostomy, choledocho jejunostomy, and gastro jejunostomy. 6. Enlarged fibroid uterus. ------ CLINICAL INFORMATION: 69 years old, Female; bilateral lower leg pain. TECHNIQUE: 3 views of the lumbar spine were obtained. COMPARISON: CT of the abdomen and pelvis dated 06/19/2025. IMPRESSION: 1. Mild spondylolisthesis of L2 on L3 and L4 on L5. 2. Chronic appearing mild compression deformities at T11 and T12 and chronic appearing mild deformity at the superior endplate of L3. No findings are seen to suggest acute fracture. 3. Degenerative disc disease and facet disease as described above. 4. Prominent calcifications in the pelvis associated with uterine fibroids. Condition at Discharge: Undetermined Final Diagnosis/Problems List Status post mechanical fall, Essential hypertension Hyperlipidemia Hypovolemic versus septic shock Lung metastasis History of pancreatic and liver cancer Mets to the lung septic shock likely due to Gram-positive bacteremia Intrahepatic abscesses VS metastases/necrotic neoplasm Transaminitis Gram-positive bacteremia KYLER Due to VMN - resolved Lrzi-pc-fpceoqln left hydroureteronephrosis Hypokalemia- resolved Hypomagnesemia- resolved Lactic acidosis-resolved History of pancreatic and liver cancer Mets to the lung Severe anemia likely due to pancreatic cancer History of DVT Obesity BMI 38.2 Discharge Disposition: at Hospital Discharge Instruct/Medications Scheduled Atorvastatin Calcium (Atorvastatin Calcium), 1 TAB PO DAILY, (Reported) Gabapentin (Once-Daily) (Gabapentin), 300 MG PO TID, (Reported) Losartan Potassium (Losartan Potassium), 50 MG PO DAILY, (Reported) Losartan Potassium (Losartan Potassium), 25 MG PO DAILY, (Reported) Pantoprazole Sodium (Pantoprazole Sodium), 40 MG PO DAILY, (Reported) Propranolol Hcl (Inderal La), 30 MG PO BID, (Reported) Ropinirole Hydrochloride (Ropinirole Hcl), 0.5 MG PO DAILY, (Reported) Miscellaneous Medications Cholecalciferol (D3), 2,000 UNIT PO, (Reported) Magnesium (Magnesium 250 mg), 1 TAB PO, (Reported) Discharge Statement: "Patient was advised to return to the ER or call 911 if any headaches, dizziness, shortness of breath, chest pain, abdominal pain, bleeding, fevers, or worsening of medical condition. Patient was counseled about treatment plan, medications, possible side effects, patientverbalized understanding. All questions were answered to the best of my ability. This discharge took greater then 30 minutes in planning, reviewing documentation, counseling the patient, and discussing with other team members." ASSESSMENT ASSESSMENT Assessment GALINDO ZAVALA Jun 29, 2025 17:33 NICOLE PEREZ MD Jul 05, 2025 17:54
--- NOTE | 2025-06-29 21:01 | RESUS ---
DUSTIN LEBRON ASSESSSMENT History of Events History of Events: Received pt from tele into room 110. Placed on monitor.Alert Oriented. Family with her. Initial vital signs normal. On levophed. Room air. Patient conversing with us in a clear but weak manner. Elevated her head of bed. Patient wheezing. Hari SALGADO. Patient developed respiratory distress. Bagged by RT. HR went svetlana. Atropine given. Unresponsive. Dustin lebron called. Dustin lebron time : 1847 to 1906 . The family called it. Pt. was a modified code from the beginning of her time here. Paper signed. Dr Espinosa attended dustin lebron. Initial Information Date: Jun 27, 2025 Time: 18:48 [place] Witnessed: Yes CPR started initial time: 18:48 CPR started by whom: Hospital Staff Last seen well: 1846 Pre-Hospital Care: Pre-Code Care (inpatient) Type of arrest: Cardiac, Respiratory Spontaneous Respirations: No Pulse Present: No Monitoring: ECG, Pulse Oximetry Crash Cart Opened and Supplies: Yes Airway Ventilation Breathing at Onset: Apneic O2 Sat by Pulse Oximetry: 0 Oxygen Delivery Method: Ambu-Bag Oxygen 100% Time of first Assisted Ventila: 18:48 Artificial Ventilation: Bag/Mask Comments: modified code: no intubation, no chest compressions Circulation Circulation : Time: 18:47 Pulse Rate (adult): 42 Blood Pressure Systolic: 72 (0) Blood Pressure Diastolic: 36 Temperature (Fahrenheit): 98.2 Circulation Comment: modified code, no intubation, no chest compressions Defibrillation Defbrillation : Time Defibrillator Applied: 18:50 EKG Rhythm: Asystole Compressions: None Compressions Hold/Resume: no Pulse Present: No EKG Rhythm: Asystole Comment defib pads on, acls meds being given, RT bagging Medications & Response Medications and Responses #1: Medication Time: 18:47 ADULT Medications Given ADULT: Atropine 1 mg Route of Administration: IV Medication Comment: unresponsive. rhythm advanced to asystole Heart Rate: 42 EKG Rhythm: Sinus Bradycardia, Asystole Blood Pressure Systolic: 0 Blood Pressure Diastolic: 0 Respiratory Rate: 0 O2 Sat by Pulse Oximetry: 0 EKG Rhythm: Asystole Comment Dr Espinosa here. ACLS meds being given. Bagging by RT. Family notified in visiting [facility]. Medications and Responses #2: Medication Time: 18:50 ADULT Medications Given ADULT: Epinephrine 1 mg Route of Administration: IV Heart Rate: 0 EKG Rhythm: Asystole Blood Pressure Systolic: 0 Blood Pressure Diastolic: 0 Respiratory Rate: 0 O2 Sat by Pulse Oximetry: 0 EKG Rhythm: Asystole Medications and Responses #3: Medication Time: 18:51 ADULT Medications Given ADULT: Sodium Bacarbinate 50 meq, Calcium Chloride 10 mL Route of Administration: IV EKG Rhythm: Asystole Blood Pressure Systolic: 0 Blood Pressure Diastolic: 0 Respiratory Rate: 0 O2 Sat by Pulse Oximetry: 0 EKG Rhythm: Asystole Comment verbal orders for cbc, bmp,mg, phos Medications and Responses #4: Medication Time: 18:52 ADULT Medications Given ADULT: D50 (amp) Route of Administration: IV Medication Comment: accucheck 84, ROSC achieved Heart Rate: 132 EKG Rhythm: Sinus Tachycardia Blood Pressure Systolic: 60 Blood Pressure Diastolic: 37 Respiratory Rate: 10 O2 Sat by Pulse Oximetry: 37 EKG Rhythm: Sinus Tachycardia Medications and Responses #5: Medication Time: 18:55 Heart Rate: 79 EKG Rhythm: Sinus Rhythm Blood Pressure Systolic: 60 Blood Pressure Diastolic: 37 Respiratory Rate: 5 O2 Sat by Pulse Oximetry: 36 EKG Rhythm: Sinus Rhythm Comment levophed at 20 mcg IV Medications and Responses #6: Medication Time: 19:00 ADULT Medications Given ADULT: Epinephrine 1 mg Route of Administration: IV Medication Comment: code blue restarted Heart Rate: 0 EKG Rhythm: Asystole Blood Pressure Systolic: 0 Blood Pressure Diastolic: 0 Respiratory Rate: 0 O2 Sat by Pulse Oximetry: 0 EKG Rhythm: Asystole Comment RT bagging patient, doppler in place, no pulse Medications and Responses #7: Medication Time: 19:01 Heart Rate: 44 EKG Rhythm: Sinus Bradycardia Blood Pressure Systolic: 63 Blood Pressure Diastolic: 37 Respiratory Rate: 4 O2 Sat by Pulse Oximetry: 29 EKG Rhythm: Sinus Bradycardia Medications and Responses #8: Medication Time: 19:02 ADULT Medications Given ADULT: Atropine 1 mg, Sodium Bacarbinate 50 meq Route of Administration: IV Heart Rate: 34 EKG Rhythm: Sinus Bradycardia Blood Pressure Systolic: 55 Blood Pressure Diastolic: 26 Respiratory Rate: 2 O2 Sat by Pulse Oximetry: 25 EKG Rhythm: Sinus Bradycardia Medications and Responses #9: Medication Time: 19:03 ADULT Medications Given ADULT: Epinephrine Gtt Route of Administration: IV EKG Rhythm: PEA Blood Pressure Systolic: 0 Blood Pressure Diastolic: 0 Respiratory Rate: 0 O2 Sat by Pulse Oximetry: 0 EKG Rhythm: PEA Comment RT bagging. Family at bedside saying good bye. Medications and Responses #10: Medication Time: 19:08 Heart Rate: 0 EKG Rhythm: Asystole Blood Pressure Systolic: 0 Blood Pressure Diastolic: 0 Respiratory Rate: 0 O2 Sat by Pulse Oximetry: 0 EKG Rhythm: Asystole Comment Family called it. Dr Espinosa here. Pacing Pacer Pads Applied and Pacing: Yes Procedure - Bennett Catheter Urinary Catheter Type/Location: Uretheral (Bennett) Urinary Catheter Size: 16 Urine Appearance: Clear Urine Color: Yellow Bennett Catheter Secured: Yes Nurses Notes [place] Coma Scale Eye Opening: None (1) [place] Coma Scale Verbal: None (1) [place] Coma Scale Motor: None (1) Gl[place]ow Total: 3 Pupil Reaction: Non Reactive Bedside Blood Glucose: 84 EKG Rhythm: Asystole Time Code Ended Time Code Ended: 19:08 Post Arrest Status: Outcome of code: Unsuccessful Patient pronounced by: Dr Espinosa Time patient pronounced: 19:08 Family notified: Yes Attending called: Yes Code Team Present: Dr Espinosa, RN: Tete Fuentes Amada, Abby, Adrianna. RT: Breanne Finley Dr Post Resuscitation Neurologica Pupil Size: 5 Comment: SUMIT Atwood Jun 29, 2025 21:01
--- NOTE | 2025-06-30 11:10 | DVHSR ---
APPROVED REPORT EXAM: Two-dimensional and M-mode echocardiogram with Doppler and color Doppler. Blood Pressure: 127/63 mmHg INDICATION New onset SVT RISK FACTORS Height: 5'8", Weight: 251 DIMENSIONS LVDd 4.9 (3.8-5.7cm) LA (2D) 3.0 (1.9-4.0cm) Aortic Root (2.0-3.7cm) LVDs 2.6 (2.5-4.0cm) LA (MM) (1.9-4.0cm) Aortic Cusp Exc (1.5-2.0cm) EF (%) 77.0 (55-70%) Rt. Atrium (1.9-4.0cm) Asc. Aorta cm IVSd 0.9 (0.7-1.1cm) RV (D) (1.8-2.4cm) PWd 0.7 (0.7-1.1cm) Mitral Valve Mitral Mitral Stenosis E wave 0.72m/s MV Mean GR. mmHg A wave 0.85m/s MV Peak GR. mmHg E/A ratio 0.8 2D MVA cm2 DECEL Time 187ms PRESS 1/2 Time ms Aortic Valve Aortic Valve Aortic Stenosis V1 1.00m/s AO Mean GR. 6mmHg V2 1.61m/s AO Peak GR. 10mmHg LVOT Diameter 1.9 (1.8-2.4cm) Doppler OTF 1.76cm2 Other Information Quality : Technically Limited Rhythm : Technically limited study due to body habitus. Conclusion lvef 65% normal rv function normal atria no severe valve abnormalities noted normal pericardium
== END 2025-06-27 21:46 | DRG 871 ==
LOC: EDBD 08:11 → ER 08:18 → OVERFLOW 12:48 → TELE-EAST 06-19 17:10 → DOU 06-24 14:04 → TELE-EAST 06-24 14:28 → ICU CENTRL 06-24 16:58 → TELE-CENTR 06-26 18:18 → ICU WEST 06-27 18:13
PROVIDERS: ADMIT Internal Medicine Pulmonary Disease; ATTEND Internal Medicine Pulmonary Disease
PROC: 30233N1 Transfusion of Nonautologous Red Blood Cells into Peripheral Vein, Percutaneous Approach (ICD-10-PCS; principal; 2025-06-18)
DX: A41.89 Other specified sepsis (principal); N17.0 Acute kidney failure with tubular necrosis; R65.21 Severe sepsis with septic shock; E87.20 Acidosis, unspecified; E88.09 Other disorders of plasma-protein metabolism, not elsewhere classified; D64.9 Anemia, unspecified; E11.22 Type 2 diabetes mellitus with diabetic chronic kidney disease; E66.9 Obesity, unspecified; N18.9 Chronic kidney disease, unspecified; I12.9 Hypertensive chronic kidney disease with stage 1 through stage 4 chronic kidney disease, or unspecified chronic kidney disease; N13.1 Hydronephrosis with ureteral stricture, not elsewhere classified; I47.10 Supraventricular tachycardia, unspecified; E11.42 Type 2 diabetes mellitus with diabetic polyneuropathy; E11.65 Type 2 diabetes mellitus with hyperglycemia; E83.42 Hypomagnesemia; E87.6 Hypokalemia; E78.5 Hyperlipidemia, unspecified; R74.01 Elevation of levels of liver transaminase levels; Z85.07 Personal history of malignant neoplasm of pancreas; Z85.05 Personal history of malignant neoplasm of liver; Z85.09 Personal history of malignant neoplasm of other digestive organs; Z83.3 Family history of diabetes mellitus; Z80.3 Family history of malignant neoplasm of breast; Z88.0 Allergy status to penicillin; Z92.21 Personal history of antineoplastic chemotherapy; Z86.718 Personal history of other venous thrombosis and embolism; Z90.411 Acquired partial absence of pancreas; Z68.32 Body mass index [BMI] 32.0-32.9, adult
CPT/HCPCS: 36415; 36430; 71045; 72100; 73502; 74176; 74177; 76775; 76857; 80048; 80053; 80202; 81001; 82270; 82550; 82570; 82962; 83036; 83605; 83615; 83735; 83880; 84100; 84156; 84300; 85007; 85025; 85027; 85045; 85610; 85730; 86301; 86850; 86900; 86901; 86920; 87040; 87076; 87077; 87081; 87086; 93005; 93306; 93970; 96361; 96365; 96374; 97110; 97116; 97163; 97530; 99291; 99292; G0378; J0131; J0169; J1815; J1956; J2185; J2405; J2470; J3480; J3490; P9047